=== PATIENT | female | born 1940 | race Two or more races ===

== ENCOUNTER 2018-02-17 15:55 | Inpatient (IN) | payer SELFPAY ==
[~2018-02-17] VITALS: Ht 152.4 cm; Wt 68.7 kg
[2018-02-17] VITALS (9 sets, daily range): BP systolic 54–144; BP diastolic 45–88
[2018-02-17 16:21] LABS: BASOPHILS % (AUTO) 1.5 % (0.0-2.0); EOSINOPHILS % (AUTO) 1.7 % (0.0-3.0); HEMOGLOBIN 13.8 G/DL (12.0-16.0); LYMPHOCYTES % (AUTO) 38.4 % (20.0-45.0); MEAN CORPUSCULAR VOLUME 88 FL (80-99); NEUTROPHILS % (AUTO) 53.4 % (45.0-75.0); PLATELET COUNT 229 K/UL (150-450); RED BLOOD COUNT 4.54 M/UL (4.20-5.40); WHITE BLOOD COUNT 8.8 K/UL (4.8-10.8)
[2018-02-17 16:24] LABS: APPEARANCE,URINE CLEAR; BILIRUBIN, URINE NEGATIVE (NEGATIVE); GLUCOSE, URINE (UA) NEGATIVE (NEGATIVE); KETONES,URINE NEGATIVE (NEGATIVE); LEUKOCYTE ESTERASE ,URINE 1+ (NEGATIVE); NITRITE,URINE NEGATIVE (NEGATIVE); PH,URINE 6 (4.5-8.0); PROTEIN,URINE NEGATIVE (NEGATIVE); UROBILINOGEN,URINE NORMAL MG/DL (0.0-1.0)
[2018-02-17 16:25] LABS: COLOR,URINE YELLOW
--- NOTE | 2018-02-17 16:25 | Emergency Room Report ---
History of Present Illness General Chief Complaint: Altered Level of Consciousness Source: Family Member Present Illness HPI Patient is a 78-year-old female who presented after increased altered mental status. Patient was brought in by private vehicle. Patient was noted to have become unconscious. The patient was noted to have agonal respirations.The patient reportedly had been ambulating in the street for 20 minutes and subsequently became less responsive. History is markedly limited by patient's mental status and acuity.. Allergies: Coded Allergies: NO KNOWN ALLERGIES (Verified Allergy, Unknown, 02/17/18) Uncoded Allergies: unknown (Allergy, Unknown, 02/17/18) Patient History Past Medical History: see triage record Reviewed Nursing Documentation: PMH: Agreed; PSxH: Agreed Nursing Documentation-PMH Past Medical History: No Stated History Review of Systems All Other Systems: negative except mentioned in HPI Physical Exam Vital Signs Date Time Temp Pulse Resp B/P (MAP) Pulse Ox O2 Delivery O2 Flow Rate FiO2 02/17/18 16:07 107.9 146 23 73/48 95 Room Air 108.0 General Appearance: obese, other - unresponsive Head: atraumatic Eyes: bilateral eye other - pinpoint pupils ENT: normal ENT inspection, hearing grossly normal, normal voice Neck: normal inspection, full range of motion, supple, no bony tend Respiratory: normal inspection, lungs clear, normal breath sounds, no respiratory distress, no retraction, no wheezing Cardiovascular #1: regular rate, rhythm, no edema Gastrointestinal: normal inspection, normal bowel sounds, non tender, soft, no guarding, no hernia Genitourinary: no CVA tenderness Musculoskeletal: normal inspection, back normal, normal range of motion Neurologic: motor weakness, other - unresponsive Psychiatric: normal inspection, judgement/insight normal, mood/affect normal Skin: normal inspection, normal color, no rash Procedures Critical Care Time Critical Care Time Patient had a critical medical condition which untreated could potentially result in life or limb threatening injury. Total critical care time excluding procedures approximately 45 minutes. Intubation Intubation : Consent: Emergent Time of Intubation: 16:19 Intubation Method: orotracheal Tube Size (cm): 7.0 Medications: Etomidate Breath Sounds after Intubation: equal Intubation Complications: no complications Post Intubation Xray: Yes Progress/Xray Impression: Right mainstem intubation Attempts: One Patient Tolerated: Well Progress tube withdrawn 2 cm Medical Decision Making Diagnostic Impression: Primary Impression: Altered level of consciousness Additional Impression: Heat stroke ER Course The patient presented for altered mental status. Differential diagnosis included was not limited to sepsis, malignant hyperthermia, heat stroke, neuroleptic malignant syndrome among others.Because of complexity of patient's case laboratory testing and imaging studies were ordered.Patient was noted to have initial temperature which was markedly elevated as well as initial hypotension. Patient noted have initial temperature 107.9. The patient started on cooling measures including cold IV fluids as well as cooling blanket and ice packs to the axilla and groin.The patient was intubated for airway protection. The patient will be admitted ICU for further management.The patient was noted to have some abrasions to her leg. Dr. Jones Aguayo was contacted for Dr. Miller inpatient management. Laboratory Tests Test 02/17/18 16:00 White Blood Count 8.8 K/UL (4.8-10.8) Red Blood Count 4.54 M/UL (4.20-5.40) Hemoglobin 13.8 G/DL (12.0-16.0) Hematocrit 40.0 % (37.0-47.0) Mean Corpuscular Volume 88 FL (80-99) Mean Corpuscular Hemoglobin 30.4 PG (27.0-31.0) Mean Corpuscular Hemoglobin Concent 34.5 G/DL (32.0-36.0) Red Cell Distribution Width 12.0 % (11.6-14.8) Platelet Count 229 K/UL (150-450) Mean Platelet Volume 7.4 FL (6.5-10.1) Neutrophils (%) (Auto) 53.4 % (45.0-75.0) Lymphocytes (%) (Auto) 38.4 % (20.0-45.0) Monocytes (%) (Auto) 5.0 % (1.0-10.0) Eosinophils (%) (Auto) 1.7 % (0.0-3.0) Basophils (%) (Auto) 1.5 % (0.0-2.0) Urine Color Yellow Urine Appearance Clear Urine pH 6 (4.5-8.0) Urine Specific [place] 1.015 (1.005-1.035) Urine Protein Negative (NEGATIVE) Urine Glucose (UA) Negative (NEGATIVE) Urine Ketones Negative (NEGATIVE) Urine Occult Blood Negative (NEGATIVE) Urine Nitrite Negative (NEGATIVE) Urine Bilirubin Negative (NEGATIVE) Urine Urobilinogen Normal MG/DL (0.0-1.0) Urine Leukocyte Esterase 1+ (NEGATIVE) H Urine RBC 0-2 /HPF (0 - 2) Urine WBC 0-2 /HPF (0 - 2) Urine Squamous Epithelial Cells Occasional /LPF Urine Bacteria Few /HPF (NONE) Sodium Level 140 MMOL/L (136-145) Potassium Level 4.6 MMOL/L (3.5-5.1) Chloride Level 103 MMOL/L (98-107) Carbon Dioxide Level 19 MMOL/L (21-32) L Anion Gap 18 mmol/L (5-15) H Blood Urea Nitrogen 19 mg/dL (7-18) H Creatinine 1.5 MG/DL (0.55-1.30) H Estimate Glomerular Filtration Rate 35.4 mL/min (>60) Glucose Level 265 MG/DL (74-106) H Lactic Acid Level 4.80 mmol/L (0.4-2.0) H Calcium Level 9.7 MG/DL (8.5-10.1) Phosphorus Level 1.9 MG/DL (2.5-4.9) L Magnesium Level 2.0 MG/DL (1.8-2.4) Total Bilirubin 0.5 MG/DL (0.2-1.0) Aspartate Amino Transferase (AST) 64 U/L (15-37) H Alanine Aminotransferase (ALT) 53 U/L (12-78) Alkaline Phosphatase 104 U/L (46-116) Total Creatine Kinase 121 U/L (26-308) Creatine Kinase MB < 0.5 NG/ML (0.0-3.6) Creatine Kinase MB Relative Index 0.4 Troponin I 0.068 ng/mL (0.000-0.056) Total Protein 8.3 G/DL (6.4-8.2) H Albumin 4.2 G/DL (3.4-5.0) Globulin 4.1 g/dL Albumin/Globulin Ratio 1.0 (1.0-2.7) Last Vital Signs Date Time Temp Pulse Resp B/P (MAP) Pulse Ox O2 Delivery O2 Flow Rate FiO2 02/17/18 16:07 107.9 146 23 73/48 95 Room Air 108.0 Status: unchanged Disposition: ADMITTED INPATIENT Condition: Critical Referrals: NOT CHOSEN IPA/MD,REFERRING (PCP) Julian Sepulveda MD Feb 17, 2018 16:25
[2018-02-17 16:30] LABS: ANION GAP 18 mmol/L (5-15); BLOOD UREA NITROGEN 19 mg/dL (7-18); CALCIUM 9.7 MG/DL (8.5-10.1); CARBON DIOXIDE 19 MMOL/L (21-32); CHLORIDE 103 MMOL/L (98-107); CREATININE 1.5 MG/DL (0.55-1.30); POTASSIUM 4.6 MMOL/L (3.5-5.1); SODIUM 140 MMOL/L (136-145)
[2018-02-17 16:54] LABS: ALANINE AMINOTRANSFERASE 53 U/L (12-78); ALBUMIN 4.2 G/DL (3.4-5.0); ALKALINE PHOSPHATASE 104 U/L (46-116); ASPARTATE AMINO TRANSFERASE 64 U/L (15-37); BILIRUBIN,TOTAL 0.5 MG/DL (0.2-1.0); CKMB < 0.5 NG/ML (0.0-3.6); CREATINE KINASE 121 U/L (26-308); PHOSPHORUS 1.9 MG/DL (2.5-4.9)
[2018-02-17] MEDS ORDERED: LORazepam Inj 2mg/ml 1ml IV PRN (17:00)
[2018-02-17] MEDS ORDERED: Acetaminophen 650 MG SUPP RECTAL PRN (17:15)
--- NOTE | 2018-02-17 17:30 | Diagnostic Imaging Report ---
EXAM: XR Chest, 1 View CLINICAL HISTORY: SOB TECHNIQUE: Frontal view of the chest. COMPARISON: No relevant prior studies available. FINDINGS/IMPRESSION: Endotracheal tube is in the right mainstem bronchus. Recommend pulling the tube back 3-4 cm. Suspect pulmonary vascular congestion. Critical Value Communications 02/17/18 17:33 Call Nurse Derick ARMSTRONG on 02/17 17:33 (-07:00)
--- NOTE | 2018-02-17 18:02 | Diagnostic Imaging Report ---
EXAM: CT Head Without Intravenous Contrast CLINICAL HISTORY: AMS TECHNIQUE: Axial computed tomography images of the head/brain without intravenous contrast. One or more of the following dose reduction techniques were used: automated exposure control, adjustment of the mA and/or kV according to patient size, use of iterative reconstruction technique. DLP 1582. CT DI 70.38 COMPARISON: No relevant prior studies available. FINDINGS: Brain: Technically limited exam. No intracranial hemorrhage or mass effect. Mild involutional and microvascular ischemic changes. Ventricles: Unremarkable. No ventriculomegaly. Bones/joints: Unremarkable. No acute fracture. Soft tissues: Unremarkable. Sinuses: Unremarkable as visualized. No acute sinusitis. Mastoid air cells: Unremarkable as visualized. No mastoid effusion. IMPRESSION: No acute findings.
[2018-02-17] MEDS ORDERED: SODIUM PHOSPHATE IVPB SCH (18:30)
[2018-02-17] MEDS ORDERED: NS IVPB SCH (18:30)
[2018-02-17] MEDS ORDERED: LORazepam Inj 2mg/ml 1ml IV SCH (18:45)
[2018-02-17] MEDS: D5NS 1,000 ML IV SCH (18:54)
--- NOTE | 2018-02-17 19:42 | Diagnostic Imaging Report ---
EXAM: XR Chest, 1 View CLINICAL HISTORY: TUBE PLCMT TECHNIQUE: Frontal view of the chest. COMPARISON: 02/17/18. FINDINGS: The endotracheal tube has been pulled back into a more appropriate position, the tip now projecting 4-5 cm above the dayron. Interval placement of enteric tube. The tip and side-port project in the proximal stomach. Elevated left hemidiaphragm due to gas distended bowel. IMPRESSION: Appropriately positioned endotracheal and enteric tubes.
--- NOTE | 2018-02-17 20:54 | Pulmonolgy Critical Care Note ---
Critical Care - Asmt/Plan Problems: (1) Lactic acid acidosis (2) NATTY (acute kidney injury) (3) Heat stroke (4) Hyperthermia (5) Acute respiratory failure (6) Altered level of consciousness Respiratory: monitor respiratory rate, adjust FIO2 - and PEEP to keep SaO2 > 90 , CXR, ABG Cardiac: continue to monitor HR/BP, other - F/u TTE, repeat ECG and TROP, cooling measures, F/U D-dimer and duplex Renal: F/U I&O, keep IV fluid, check electrolytes, other - trend lactic acid, check serum and urine OSM, F/U renal recs, check salicylates and acetom, utox Infectious Disease: add antibiotics - Vanco/Zosyn Gastrointestinal: hold feedings Endocrine: monitor blood sugar, check TSH, check HgA1C, continue sliding scale insulin Hematologic: monitor H/H Neurologic: keep patient comfortable - PRN Versed and Fentanyl Prophylaxis: Protonix, Heparin Disposition: keep in ICU Time Spent (Minutes): 60 Discussed with: nurses, consultants Critical Care - Objective Last 24 Hour Vital Signs Date Time Temp Pulse Resp B/P (MAP) Pulse Ox O2 Delivery O2 Flow Rate FiO2 02/17/18 20:14 102.2 115 35 97/54 100 Mechanical Ventilator 100 102.2 02/17/18 19:34 102.2 115 35 97/54 100 Mechanical Ventilator 100 102.2 02/17/18 18:25 102.5 151 35 137/78 100 Mechanical Ventilator 100 102.5 02/17/18 17:25 102.2 155 18 144/88 100 Mechanical Ventilator 100 102.2 02/17/18 16:48 100 02/17/18 16:41 135 18 100 02/17/18 16:25 103.3 154 24 107/52 100 Mechanical Ventilator 100 103.3 02/17/18 16:15 107.0 112 26 78/56 91 Room Air 107.0 02/17/18 16:07 107.9 146 23 73/48 95 Room Air 108.0 Status: obtunded Condition: critical HEENT: normocephalic Lungs: chest wall tender Heart: HR/BP stable Abdomen: soft, non-tender, active bowel sounds Extremities: no C/C/E Accucheck: 241 Critical Care - Subjective ROS Limited/Unobtainable: Yes ICU Day: 1 Intubation Day: 1 Interval Events: 77 F unknown PMH BIB vehicle after found in the stress with AMS, was walking in the street in the heat, temp in ED 107.9, no rigidity, improved to 101 with cooling blankets. Intubated in ER, CT head NAD. Condition: critical IV Access: peripheral EKG Rhythm: Sinus Rhythm FI02: 100 Vent Support Breath Rate: 14 Vent Support Mode: AC Vent Tidal Volume: 550 Sputum Amount: Small PIP: 22 Fluids: D5NS @ 150 Subjective: [place]O ET-Tube: 7.0 ET Position: 22 Labs: Laboratory Tests Test 02/17/18 16:00 02/17/18 19:00 02/17/18 19:40 White Blood Count 8.8 K/UL (4.8-10.8) Red Blood Count 4.54 M/UL (4.20-5.40) Hemoglobin 13.8 G/DL (12.0-16.0) Hematocrit 40.0 % (37.0-47.0) Mean Corpuscular Volume 88 FL (80-99) Mean Corpuscular Hemoglobin 30.4 PG (27.0-31.0) Mean Corpuscular Hemoglobin Concent 34.5 G/DL (32.0-36.0) Red Cell Distribution Width 12.0 % (11.6-14.8) Platelet Count 229 K/UL (150-450) Mean Platelet Volume 7.4 FL (6.5-10.1) Neutrophils (%) (Auto) 53.4 % (45.0-75.0) Lymphocytes (%) (Auto) 38.4 % (20.0-45.0) Monocytes (%) (Auto) 5.0 % (1.0-10.0) Eosinophils (%) (Auto) 1.7 % (0.0-3.0) Basophils (%) (Auto) 1.5 % (0.0-2.0) Urine Color Yellow Urine Appearance Clear Urine pH 6 (4.5-8.0) Urine Specific [place] 1.015 (1.005-1.035) Urine Protein Negative (NEGATIVE) Urine Glucose (UA) Negative (NEGATIVE) Urine Ketones Negative (NEGATIVE) Urine Occult Blood Negative (NEGATIVE) Urine Nitrite Negative (NEGATIVE) Urine Bilirubin Negative (NEGATIVE) Urine Urobilinogen Normal MG/DL (0.0-1.0) Urine Leukocyte Esterase 1+ (NEGATIVE) H Urine RBC 0-2 /HPF (0 - 2) Urine WBC 0-2 /HPF (0 - 2) Urine Squamous Epithelial Cells Occasional /LPF Urine Bacteria Few /HPF (NONE) Sodium Level 140 MMOL/L (136-145) Potassium Level 4.6 MMOL/L (3.5-5.1) Chloride Level 103 MMOL/L (98-107) Carbon Dioxide Level 19 MMOL/L (21-32) L Anion Gap 18 mmol/L (5-15) H Blood Urea Nitrogen 19 mg/dL (7-18) H Creatinine 1.5 MG/DL (0.55-1.30) H Estimat Glomerular Filtration Rate 35.4 mL/min (>60) Glucose Level 265 MG/DL (74-106) H Lactic Acid Level 4.80 mmol/L (0.4-2.0) H 4.00 mmol/L (0.66-2.22) H Calcium Level 9.7 MG/DL (8.5-10.1) Phosphorus Level 1.9 MG/DL (2.5-4.9) L Magnesium Level 2.0 MG/DL (1.8-2.4) Total Bilirubin 0.5 MG/DL (0.2-1.0) Aspartate Amino Transf (AST/SGOT) 64 U/L (15-37) H Alanine Aminotransferase (ALT/SGPT) 53 U/L (12-78) Alkaline Phosphatase 104 U/L (46-116) Total Creatine Kinase 121 U/L (26-308) Creatine Kinase MB < 0.5 NG/ML (0.0-3.6) Creatine Kinase MB Relative Index 0.4 Troponin I 0.068 ng/mL (0.000-0.056) Total Protein 8.3 G/DL (6.4-8.2) H Albumin 4.2 G/DL (3.4-5.0) Globulin 4.1 g/dL Albumin/Globulin Ratio 1.0 (1.0-2.7) Urine Opiates Screen Pending Urine Barbiturates Screen Pending Phencyclidine (PCP) Screen Pending Urine Amphetamines Screen Pending Urine Benzodiazepines Screen Pending Urine Cocaine Screen Pending Urine Marijuana (THC) Screen Pending Stalin García MD Feb 17, 2018 20:54
[2018-02-17] MEDS: NovoLOG Insulin Flexpen SUBQ SCH (21:00)
[2018-02-17] MEDS: DOPamine 400mg/250ml 250 ML IV SCH (21:00)
[2018-02-17] MEDS ORDERED: DOPamine 400mg/250ml 250 ML IV ONE (21:09)
[2018-02-17] MEDS ORDERED: Lidocaine 1% Plain 30 ml INJ ONE (21:47)
[2018-02-17] MEDS: Piperacillin/Tazobactam 3.375 GM in D5W 110 ML IVPB SCH (22:00)
[2018-02-17] MEDS ORDERED: Heparin 5000 units/ml inj SUBQ SCH (22:00)
[2018-02-17 22:23] LABS: ALANINE AMINOTRANSFERASE 109 U/L (12-78); ALBUMIN 3.7 G/DL (3.4-5.0); ALBUMIN/GLOBULIN RATIO 1.1 (1.0-2.7); ALKALINE PHOSPHATASE 98 U/L (46-116); ANION GAP 16 mmol/L (5-15); ASPARTATE AMINO TRANSFERASE 160 U/L (15-37); BILIRUBIN,TOTAL 0.4 MG/DL (0.2-1.0); BLOOD UREA NITROGEN 26 mg/dL (7-18); CALCIUM 8.2 MG/DL (8.5-10.1); CARBON DIOXIDE 19 MMOL/L (21-32); CHLORIDE 111 MMOL/L (98-107); CREATINE KINASE 291 U/L (26-308); CREATININE 1.3 MG/DL (0.55-1.30); POTASSIUM 2.8 MMOL/L (3.5-5.1); SODIUM 147 MMOL/L (136-145)
--- NOTE | 2018-02-17 23:01 | Diagnostic Imaging Report ---
EXAM: XR Chest, 1 View CLINICAL HISTORY: LINE TECHNIQUE: Frontal view of the chest. COMPARISON: 02/17/18 at 1915 hrs. FINDINGS/IMPRESSION: Interval placement of a central venous catheter in a right subclavian approach. Tip is in the mid-lower SVC. No pneumothorax. Endotracheal and enteric tubes are again noted.
--- NOTE | 2018-02-17 23:52 | Emergency Room Report ---
History of Present Illness General Chief Complaint: Altered Level of Consciousness Source: Family Member Present Illness Allergies: Coded Allergies: NO KNOWN ALLERGIES (Verified Allergy, Unknown, 02/17/18) Uncoded Allergies: unknown (Allergy, Unknown, 02/17/18) Nursing Documentation-[facility] Past Medical History Deferred: Patient Unconscious Past Medical History: No Stated History Hx Cardiac Problems: No Hx Cancer: No Hx Gastrointestinal Problems: No Hx Neurological Problems: No Physical Exam Vital Signs Date Time Temp Pulse Resp B/P (MAP) Pulse Ox O2 Delivery O2 Flow Rate FiO2 02/17/18 16:07 107.9 146 23 73/48 95 Room Air 108.0 02/17/18 16:25 100 Procedures Central Line Central Line : Consent: Emergent Central Line Lumen: triple Maximal Sterile Barrier Tech: yes cap, yes mask, yes sterile gown, yes sterile gloves, yes large sterile sheet, yes hand hygiene, yes chlorhexidine prep No Max Barrier Tech Because: other Central Line Postion: subclavian (R) Anesthesia: Lidocaine cc's of anesthesia: 4 Complications: none Central Line Post Position: sutured, good blood return, position confirmed w / CXR Attempts: Other - three attempted right IJ under ultrasound without success Patient Tolerated: Well Complications: None Medical Decision Making Diagnostic Impression: Primary Impression: Altered level of consciousness Additional Impression: Heat stroke Last Vital Signs Date Time Temp Pulse Resp B/P (MAP) Pulse Ox O2 Delivery O2 Flow Rate FiO2 02/17/18 21:15 85/52 02/17/18 20:14 102.2 115 35 100 Mechanical Ventilator 100 102.2 Disposition: ADMITTED INPATIENT Condition: Critical Referrals: NOT CHOSEN IPA/,REFERRING (PCP) Julian Sepulveda MD Feb 17, 2018 23:52
[2018-02-18] VITALS (24 sets, daily range): BP systolic 84–131; BP diastolic 48–88
--- NOTE | 2018-02-18 | Diagnostic Imaging Report ---
EXAM: US Abdomen Complete CLINICAL HISTORY: RENAL-A TECHNIQUE: Real-time ultrasound of the abdomen (complete) with image documentation. COMPARISON: No relevant prior studies available. FINDINGS: No renal stones or hydronephrosis. No suspicious masses. [place] in the bladder. IMPRESSION: See above
[2018-02-18 00:08] LABS: HEMATOCRIT 39.7 % (37.0-47.0); HEMOGLOBIN 13.4 G/DL (12.0-16.0); MEAN CORPUSCULAR VOLUME 87 FL (80-99); PLATELET COUNT 69 K/UL (150-450); RED BLOOD COUNT 4.55 M/UL (4.20-5.40); RED CELL DISTRIBUTION WIDTH 12.3 % (11.6-14.8); WHITE BLOOD COUNT 13.8 K/UL (4.8-10.8)
[2018-02-18] MEDS: Heparin 5000 units/ml inj IV SCH ×2 (00:15→02:00)
[2018-02-18] MEDS: D5NS 1,000 ML IV SCH (00:40)
[2018-02-18] MEDS ORDERED: Vancomycin 1250mg/D5W 250ml IVPB SCH (02:00)
[2018-02-18] MEDS: Heparin 25,000u/D5W 500ml 500 ML IV SCH ×2 (02:13→10:54)
[2018-02-18] MEDS: Acetaminophen 650mg/20.3ml NG PRN ×2 (02:21→21:16)
[2018-02-18 06:03] LABS: HEMOGLOBIN 13.4 G/DL (12.0-16.0); MEAN CORPUSCULAR VOLUME 89 FL (80-99); PLATELET COUNT 68 K/UL (150-450); RED BLOOD COUNT 4.49 M/UL (4.20-5.40); RED CELL DISTRIBUTION WIDTH 12.6 % (11.6-14.8); WHITE BLOOD COUNT 12.7 K/UL (4.8-10.8)
[2018-02-18 06:14] LABS: ANION GAP 13 mmol/L (5-15); BLOOD UREA NITROGEN 22 mg/dL (7-18); CARBON DIOXIDE 21 MMOL/L (21-32); CHLORIDE 109 MMOL/L (98-107); CREATININE 1.3 MG/DL (0.55-1.30); POTASSIUM 2.9 MMOL/L (3.5-5.1); SODIUM 143 MMOL/L (136-145)
[2018-02-18] MEDS: Piperacillin/Tazobactam 3.375 GM in D5W 110 ML IVPB SCH ×3 (06:19→21:54)
[2018-02-18] MEDS: NovoLOG Insulin Flexpen SUBQ SCH ×4 (06:39→21:00)
--- NOTE | 2018-02-18 08:06 | Nephrology Progress Note ---
Assessment/Plan Assessment/Plan HISTORY AND PHYSICAL WAS DICTATED 02/17/18 UNDER [facility] 1. Heat Stroke- initial body temp 107.5. - patient fluid resucitated - much improved. Temp as well decreased 2. Hypotension- volume depleted. IVF's - on norepi. Will decrease IVFs 3. Resp FL- patient awake. Weaning to begin then hopefully extubate later today 4. DVT prophylaxsis given 5. Hypokalemia- being replaced Subjective Date patient seen: Feb 18, 2018 Time patient seen: 08:02 ROS Limited/Unobtainable: Yes Allergies: Coded Allergies: NO KNOWN ALLERGIES (Verified Allergy, Unknown, 02/17/18) Uncoded Allergies: unknown (Allergy, Unknown, 02/17/18) All Systems: reviewed and negative except above Subjective Patient awake and intubated. Much improved Objective Last 24 Hour Vital Signs Date Time Temp Pulse Resp B/P (MAP) Pulse Ox O2 Delivery O2 Flow Rate FiO2 02/18/18 07:00 71 18 96/50 (65) 100 02/18/18 06:55 69 19 50 02/18/18 06:00 71 18 91/54 (66) 100 02/18/18 05:00 71 18 96/58 (71) 100 02/18/18 04:55 68 19 60 02/18/18 04:30 85/52 02/18/18 04:00 96 02/18/18 04:00 60 02/18/18 04:00 Mechanical Ventilator 02/18/18 04:00 98.4 70 18 84/54 (64) 100 98.4 02/18/18 03:00 82 20 106/57 (73) 99 02/18/18 02:51 99.9 02/18/18 02:44 77 21 70 02/18/18 02:21 100.7 02/18/18 02:00 78 17 105/66 (79) 100 02/18/18 01:00 85 18 107/49 (68) 100 02/18/18 00:47 72 18 80 02/18/18 00:00 Mechanical Ventilator 02/18/18 00:00 100.0 74 22 110/53 (72) 98 100.0 02/18/18 00:00 90 02/18/18 00:00 69 02/17/18 23:51 Mechanical Ventilator 02/17/18 23:17 90 02/17/18 23:00 75 21 127/76 (93) 98 02/17/18 22:49 68 15 100 02/17/18 22:00 83 19 90/57 (68) 99 02/17/18 21:15 85/52 02/17/18 21:00 81 18 70/46 (54) 99 02/17/18 21:00 64/38 02/17/18 20:39 83 16 100 02/17/18 20:14 102.2 115 35 97/54 100 Mechanical Ventilator 100 102.2 02/17/18 20:00 Mechanical Ventilator 02/17/18 20:00 100.8 81 18 54/45 (48) 99 100.8 02/17/18 20:00 90 02/17/18 20:00 85 02/17/18 19:34 102.2 115 35 97/54 100 Mechanical Ventilator 100 102.2 02/17/18 18:50 129 22 100 02/17/18 18:25 102.5 151 35 137/78 100 Mechanical Ventilator 100 102.5 02/17/18 17:25 102.2 155 18 144/88 100 Mechanical Ventilator 100 102.2 02/17/18 16:48 100 02/17/18 16:41 135 18 100 02/17/18 16:25 103.3 154 24 107/52 100 Mechanical Ventilator 100 103.3 02/17/18 16:15 107.0 112 26 78/56 91 Room Air 107.0 02/17/18 16:07 107.9 146 23 73/48 95 Room Air 108.0 Intake and Output 02/17/18 02/18/18 19:00 07:00 Intake Total 2173.380 ml Output Total 150 ml 1475 ml Balance -150 ml 698.380 ml Intake IV Total 2173.380 ml Output Urine Total 150 ml 1425 ml Emesis 50 ml # Bowel Movements 4 Laboratory Tests 02/17/18 16:00: White Blood Count 8.8, Red Blood Count 4.54, Hemoglobin 13.8, Hematocrit 40.0, Mean Corpuscular Volume 88, Mean Corpuscular Hemoglobin 30.4, Mean Corpuscular Hemoglobin Concent 34.5, Red Cell Distribution Width 12.0, Platelet Count 229, Mean Platelet Volume 7.4, Neutrophils (%) (Auto) 53.4, Lymphocytes (%) (Auto) 38.4, Monocytes (%) (Auto) 5.0, Eosinophils (%) (Auto) 1.7, Basophils (%) (Auto ) 1.5, Urine Color Yellow, Urine Appearance Clear, Urine pH 6, Urine Specific [place] 1.015, Urine Protein Negative, Urine Glucose (UA) Negative, Urine Ketones Negative, Urine Occult Blood Negative, Urine Nitrite Negative, Urine Bilirubin Negative, Urine Urobilinogen Normal, Urine Leukocyte Esterase 1+H, Urine RBC 0-2, Urine WBC 0-2, Urine Squamous Epithelial Cells Occasional, Urine Bacteria Few, Sodium Level 140, Potassium Level 4.6, Chloride Level 103, Carbon Dioxide Level 19L, Anion Gap 18H, Blood Urea Nitrogen 19H, Creatinine 1.5H, Estimat Glomerular Filtration Rate 35.4, Glucose Level 265H, Lactic Acid Level 4.80H, Calcium Level 9.7, Phosphorus Level 1.9L, Magnesium Level 2.0, Total Bilirubin 0.5, Aspartate Amino Transf (AST/SGOT) 64H, Alanine Aminotransferase ( ALT/SGPT) 53, Alkaline Phosphatase 104, Total Creatine Kinase 121, Creatine Kinase MB < 0.5, Creatine Kinase MB Relative Index 0.4, Troponin I 0.068H, Total Protein 8.3H, Albumin 4.2, Globulin 4.1, Albumin/Globulin Ratio 1.0 02/17/18 19:00: Urine Opiates Screen [Pending], Urine Barbiturates Screen [Pending], Phencyclidine (PCP) Screen [Pending], Urine Amphetamines Screen [Pending], Urine Benzodiazepines Screen [Pending], Urine Cocaine Screen [Pending], Urine Marijuana (THC) Screen [Pending] 02/17/18 19:40: Lactic Acid Level 4.00H 02/17/18 21:30: Sodium Level 147H, Potassium Level 2.8L, Chloride Level 111H, Carbon Dioxide Level 19L, Anion Gap 16H, Blood Urea Nitrogen 26H, Creatinine 1.3, Estimat Glomerular Filtration Rate , Glucose Level 149#H, Lactic Acid Level 4.00H, Calcium Level 8.2L, Total Bilirubin 0.4, Aspartate Amino Transf (AST/SGOT) 160H , Alanine Aminotransferase (ALT/SGPT) 109H, Alkaline Phosphatase 98, Total Creatine Kinase 291, Troponin I 0.939H, Total Protein 7.2, Albumin 3.7, Globulin 3.5, Albumin/Globulin Ratio 1.1, D-Dimer 12.15H, Hemoglobin A1c 6.3H, Osmolality 316, Thyroid Stimulating Hormone (TSH) 4.797H, Cortisol [Pending], Salicylates Level 0.5L, Acetaminophen Level < 0L 02/17/18 22:55: Arterial Blood pH 7.322L, Arterial Blood Partial Pressure CO2 34.9L, Arterial Blood Partial Pressure O2 582.5H, Arterial Blood HCO3 17.7L, Arterial Blood Oxygen Saturation 99.4H, Arterial Blood Base Excess -7.5, Kalin Test Positive 02/17/18 23:20: Lactic Acid Level 2.60H 02/17/18 23:45: White Blood Count 13.8#H, Red Blood Count 4.55, Hemoglobin 13.4, Hematocrit 39.7 , Mean Corpuscular Volume 87, Mean Corpuscular Hemoglobin 29.4, Mean Corpuscular Hemoglobin Concent 33.7, Red Cell Distribution Width 12.3, Platelet Count 69#L, Mean Platelet Volume 6.2L, Neutrophils (%) (Auto) , Lymphocytes (%) (Auto) , Monocytes (%) (Auto) , Eosinophils (%) (Auto) , Basophils (%) (Auto) , Differential Total Cells Counted 100, Neutrophils % (Manual) 82H, Lymphocytes % (Manual) 7L, Monocytes % (Manual) 11H, Eosinophils % (Manual) 0, Basophils % ( Manual) 0, Band Neutrophils 0, Nucleated Red Blood Cells 1, Platelet Estimate DecreasedL, Platelet Morphology Normal 02/18/18 00:20: Activated Partial Thromboplast Time 27, Cortisol AM Sample [Pending] 02/18/18 05:10: White Blood Count 12.7H, Red Blood Count 4.49, Hemoglobin 13.4, Hematocrit 40.0 , Mean Corpuscular Volume 89, Mean Corpuscular Hemoglobin 29.8, Mean Corpuscular Hemoglobin Concent 33.4, Red Cell Distribution Width 12.6, Platelet Count 68L, Mean Platelet Volume 8.3, Neutrophils (%) (Auto) , Lymphocytes (%) ( Auto) , Monocytes (%) (Auto) , Eosinophils (%) (Auto) , Basophils (%) (Auto) , Neutrophils % (Manual) [Pending], Lymphocytes % (Manual) [Pending], Platelet Estimate [Pending], Platelet Morphology [Pending], Sodium Level 143, Potassium Level 2.9L, Chloride Level 109H, Carbon Dioxide Level 21, Anion Gap 13, Blood Urea Nitrogen 22H, Creatinine 1.3, Estimat Glomerular Filtration Rate , Glucose Level 214H, Calcium Level 8.0L Height (Feet): 5 Weight (Pounds): 159 General Appearance: no apparent distress, alert EENT: PERRL/EOMI Neck: normal alignment, supple Cardiovascular: normal rate, regular rhythm Abdomen: non tender, soft Edema: no edema noted Arm (L), no edema noted Arm (R), no edema noted Leg (L), no edema noted Leg (R), no edema noted Pedal (L), no edema noted Pedal (R), no edema noted Generalized Jones Aguayo M.D. Feb 18, 2018 08:06
--- NOTE | 2018-02-18 08:53 | Pulmonolgy Critical Care Note ---
Critical Care - Asmt/Plan Problems: (1) Lactic acid acidosis (2) NATTY (acute kidney injury) (3) Heat stroke (4) Hyperthermia (5) Acute respiratory failure (6) Altered level of consciousness (7) NSTEMI (non-ST elevated myocardial infarction) (8) Thrombocytopenia Respiratory: monitor respiratory rate, adjust FIO2 - Titrate down FiO2 and PEEP to keep SaO2 > 90%, other - Optimize pulmonary hygiene/mobilzie as tolerated Cardiac: continue to monitor HR/BP, other - Continue IVUH for now, trend trops , F/U TTE, cards eval Renal: keep IV fluid, check electrolytes Infectious Disease: check cultures, continue antibiotics - Vanco/Zosyn D2 Gastrointestinal: start feedings Endocrine: monitor blood sugar Hematologic: monitor H/H, other - Continue IVUH, if duplex neg and trops downtrending will D/C IVUH, check HIT Abx panel and 5HT assay Neurologic: keep patient comfortable - PRN Versed Prophylaxis: Protonix, Heparin - IVUH Time Spent (Minutes): 40 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, 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, 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 Critical Care - Objective Last 24 Hour Vital Signs Date Time Temp Pulse Resp B/P (MAP) Pulse Ox O2 Delivery O2 Flow Rate FiO2 02/18/18 07:00 71 18 96/50 (65) 100 02/18/18 06:55 69 19 50 02/18/18 06:00 71 18 91/54 (66) 100 02/18/18 05:00 71 18 96/58 (71) 100 02/18/18 04:55 68 19 60 02/18/18 04:30 85/52 02/18/18 04:00 96 02/18/18 04:00 60 02/18/18 04:00 Mechanical Ventilator 02/18/18 04:00 98.4 70 18 84/54 (64) 100 98.4 02/18/18 03:00 82 20 106/57 (73) 99 02/18/18 02:51 99.9 02/18/18 02:44 77 21 70 02/18/18 02:21 100.7 02/18/18 02:00 78 17 105/66 (79) 100 02/18/18 01:00 85 18 107/49 (68) 100 02/18/18 00:47 72 18 80 02/18/18 00:00 Mechanical Ventilator 02/18/18 00:00 100.0 74 22 110/53 (72) 98 100.0 02/18/18 00:00 90 02/18/18 00:00 69 02/17/18 23:51 Mechanical Ventilator 02/17/18 23:17 90 02/17/18 23:00 75 21 127/76 (93) 98 02/17/18 22:49 68 15 100 02/17/18 22:00 83 19 90/57 (68) 99 02/17/18 21:15 85/52 02/17/18 21:00 81 18 70/46 (54) 99 02/17/18 21:00 64/38 02/17/18 20:39 83 16 100 02/17/18 20:14 102.2 115 35 97/54 100 Mechanical Ventilator 100 102.2 02/17/18 20:00 Mechanical Ventilator 02/17/18 20:00 100.8 81 18 54/45 (48) 99 100.8 02/17/18 20:00 90 02/17/18 20:00 85 02/17/18 19:34 102.2 115 35 97/54 100 Mechanical Ventilator 100 102.2 02/17/18 18:50 129 22 100 02/17/18 18:25 102.5 151 35 137/78 100 Mechanical Ventilator 100 102.5 02/17/18 17:25 102.2 155 18 144/88 100 Mechanical Ventilator 100 102.2 02/17/18 16:48 100 02/17/18 16:41 135 18 100 02/17/18 16:25 103.3 154 24 107/52 100 Mechanical Ventilator 100 103.3 02/17/18 16:15 107.0 112 26 78/56 91 Room Air 107.0 02/17/18 16:07 107.9 146 23 73/48 95 Room Air 108.0 Status: somnolent, other - intubated Condition: critical Lungs: clear, other - R SC CVC Heart: HR/BP unstable Abdomen: soft, non-tender, active bowel sounds Extremities: no C/C/E, other - knee abrasion Micro: Microbiology Date/Time Source Procedure Growth Status 02/17/18 19:18 Stool Clostridium difficile Toxin Assay - Final Complete Accucheck: 214 Critical Care - Subjective ROS Limited/Unobtainable: Yes ICU Day: 2 Intubation Day: 2 Interval Events: S/P R SC CVC + 673, 4mg NE Plt dropped before starting IVUH, doubt HIT Condition: improving IV Access: central - R SC CVC EKG Rhythm: Sinus Rhythm FI02: 50 Vent Support Breath Rate: 14 Vent Support Mode: AC Vent Tidal Volume: 550 Sputum Amount: Scant PEEP: 10.0 PIP: 26 Fluids: NS@150 Drips: NE 12 I&O: Intake and Output 02/17/18 02/18/18 19:00 07:00 Intake Total 2173.380 ml Output Total 150 ml 1475 ml Balance -150 ml 698.380 ml Intake IV Total 2173.380 ml Output Urine Total 150 ml 1425 ml Emesis 50 ml # Bowel Movements 4 Subjective: LEOBARDO ET-Tube: 7.0 ET Position: 20 Labs: Laboratory Tests Test 02/17/18 16:00 02/17/18 19:00 02/17/18 19:40 02/17/18 21:30 White Blood Count 8.8 K/UL (4.8-10.8) Red Blood Count 4.54 M/UL (4.20-5.40) Hemoglobin 13.8 G/DL (12.0-16.0) Hematocrit 40.0 % (37.0-47.0) Mean Corpuscular Volume 88 FL (80-99) Mean Corpuscular Hemoglobin 30.4 PG (27.0-31.0) Mean Corpuscular Hemoglobin Concent 34.5 G/DL (32.0-36.0) Red Cell Distribution Width 12.0 % (11.6-14.8) Platelet Count 229 K/UL (150-450) Mean Platelet Volume 7.4 FL (6.5-10.1) Neutrophils (%) (Auto) 53.4 % (45.0-75.0) Lymphocytes (%) (Auto) 38.4 % (20.0-45.0) Monocytes (%) (Auto) 5.0 % (1.0-10.0) Eosinophils (%) (Auto) 1.7 % (0.0-3.0) Basophils (%) (Auto) 1.5 % (0.0-2.0) Urine Color Yellow Urine Appearance Clear Urine pH 6 (4.5-8.0) Urine Specific [place] 1.015 (1.005-1.035) Urine Protein Negative (NEGATIVE) Urine Glucose (UA) Negative (NEGATIVE) Urine Ketones Negative (NEGATIVE) Urine Occult Blood Negative (NEGATIVE) Urine Nitrite Negative (NEGATIVE) Urine Bilirubin Negative (NEGATIVE) Urine Urobilinogen Normal MG/DL (0.0-1.0) Urine Leukocyte Esterase 1+ (NEGATIVE) H Urine RBC 0-2 /HPF (0 - 2) Urine WBC 0-2 /HPF (0 - 2) Urine Squamous Epithelial Cells Occasional /LPF Urine Bacteria Few /HPF (NONE) Sodium Level 140 MMOL/L (136-145) 147 MMOL/L (136-145) H Potassium Level 4.6 MMOL/L (3.5-5.1) 2.8 MMOL/L (3.5-5.1) L Chloride Level 103 MMOL/L (98-107) 111 MMOL/L (98-107) H Carbon Dioxide Level 19 MMOL/L (21-32) L 19 MMOL/L (21-32) L Anion Gap 18 mmol/L (5-15) H 16 mmol/L (5-15) H Blood Urea Nitrogen 19 mg/dL (7-18) H 26 mg/dL (7-18) H Creatinine 1.5 MG/DL (0.55-1.30) H 1.3 MG/DL (0.55-1.30) Estimat Glomerular Filtration Rate 35.4 mL/min (>60) mL/min (>60) Glucose Level 265 MG/DL (74-106) H 149 MG/DL (74-106) #H Lactic Acid Level 4.80 mmol/L (0.4-2.0) H 4.00 mmol/L (0.66-2.22) H 4.00 mmol/L (0.4-2.0) H Calcium Level 9.7 MG/DL (8.5-10.1) 8.2 MG/DL (8.5-10.1) L Phosphorus Level 1.9 MG/DL (2.5-4.9) L Magnesium Level 2.0 MG/DL (1.8-2.4) Total Bilirubin 0.5 MG/DL (0.2-1.0) 0.4 MG/DL (0.2-1.0) Aspartate Amino Transf (AST/SGOT) 64 U/L (15-37) H 160 U/L (15-37) H Alanine Aminotransferase (ALT/SGPT) 53 U/L (12-78) 109 U/L (12-78) H Alkaline Phosphatase 104 U/L (46-116) 98 U/L (46-116) Total Creatine Kinase 121 U/L (26-308) 291 U/L (26-308) Creatine Kinase MB < 0.5 NG/ML (0.0-3.6) Creatine Kinase MB Relative Index 0.4 Troponin I 0.068 ng/mL (0.000-0.056) 0.939 ng/mL (0.000-0.056) Total Protein 8.3 G/DL (6.4-8.2) H 7.2 G/DL (6.4-8.2) Albumin 4.2 G/DL (3.4-5.0) 3.7 G/DL (3.4-5.0) Globulin 4.1 g/dL 3.5 g/dL Albumin/Globulin Ratio 1.0 (1.0-2.7) 1.1 (1.0-2.7) Urine Opiates Screen Pending Urine Barbiturates Screen Pending Phencyclidine (PCP) Screen Pending Urine Amphetamines Screen Pending Urine Benzodiazepines Screen Pending Urine Cocaine Screen Pending Urine Marijuana (THC) Screen Pending D-Dimer 12.15 mg/L FEU (0.00-0.49) H Hemoglobin A1c 6.3 % (4.3-6.0) H Osmolality 316 mOsm/kg (297-317) Thyroid Stimulating Hormone (TSH) 4.797 uiU/mL (0.358-3.740) Cortisol Pending Salicylates Level 0.5 ug/mL (2.8-20) L Acetaminophen Level < 0 MCG/ML (10-30) L Test 02/17/18 22:55 02/17/18 23:20 02/17/18 23:45 02/18/18 00:20 Arterial Blood pH 7.322 (7.350-7.450) Arterial Blood Partial Pressure CO2 34.9 mmHg (35.0-45.0) L Arterial Blood Partial Pressure O2 582.5 mmHg (75.0-100.0) H Arterial Blood HCO3 17.7 mmol/L (22.0-26.0) L Arterial Blood Oxygen Saturation 99.4 % (92.0-98.0) H Arterial Blood Base Excess -7.5 Kalin Test Positive Lactic Acid Level 2.60 mmol/L (0.66-2.22) H White Blood Count 13.8 K/UL (4.8-10.8) #H Red Blood Count 4.55 M/UL (4.20-5.40) Hemoglobin 13.4 G/DL (12.0-16.0) Hematocrit 39.7 % (37.0-47.0) Mean Corpuscular Volume 87 FL (80-99) Mean Corpuscular Hemoglobin 29.4 PG (27.0-31.0) Mean Corpuscular Hemoglobin Concent 33.7 G/DL (32.0-36.0) Red Cell Distribution Width 12.3 % (11.6-14.8) Platelet Count 69 K/UL (150-450) #L Mean Platelet Volume 6.2 FL (6.5-10.1) L Neutrophils (%) (Auto) % (45.0-75.0) Lymphocytes (%) (Auto) % (20.0-45.0) Monocytes (%) (Auto) % (1.0-10.0) Eosinophils (%) (Auto) % (0.0-3.0) Basophils (%) (Auto) % (0.0-2.0) Differential Total Cells Counted 100 Neutrophils % (Manual) 82 % (45-75) H Lymphocytes % (Manual) 7 % (20-45) L Monocytes % (Manual) 11 % (1-10) H Eosinophils % (Manual) 0 % (0-3) Basophils % (Manual) 0 % (0-2) Band Neutrophils 0 % (0-8) Nucleated Red Blood Cells 1 /100 WBC Platelet Estimate Decreased L Platelet Morphology Normal Activated Partial Thromboplast Time 27 SEC (23-33) Cortisol AM Sample Pending Test 02/18/18 05:10 02/18/18 08:15 White Blood Count 12.7 K/UL (4.8-10.8) H Red Blood Count 4.49 M/UL (4.20-5.40) Hemoglobin 13.4 G/DL (12.0-16.0) Hematocrit 40.0 % (37.0-47.0) Mean Corpuscular Volume 89 FL (80-99) Mean Corpuscular Hemoglobin 29.8 PG (27.0-31.0) Mean Corpuscular Hemoglobin Concent 33.4 G/DL (32.0-36.0) Red Cell Distribution Width 12.6 % (11.6-14.8) Platelet Count 68 K/UL (150-450) L Mean Platelet Volume 8.3 FL (6.5-10.1) Neutrophils (%) (Auto) % (45.0-75.0) Lymphocytes (%) (Auto) % (20.0-45.0) Monocytes (%) (Auto) % (1.0-10.0) Eosinophils (%) (Auto) % (0.0-3.0) Basophils (%) (Auto) % (0.0-2.0) Neutrophils % (Manual) Pending Lymphocytes % (Manual) Pending Platelet Estimate Pending Platelet Morphology Pending Sodium Level 143 MMOL/L (136-145) Potassium Level 2.9 MMOL/L (3.5-5.1) L Chloride Level 109 MMOL/L (98-107) H Carbon Dioxide Level 21 MMOL/L (21-32) Anion Gap 13 mmol/L (5-15) Blood Urea Nitrogen 22 mg/dL (7-18) H Creatinine 1.3 MG/DL (0.55-1.30) Estimat Glomerular Filtration Rate mL/min (>60) Glucose Level 214 MG/DL (74-106) H Calcium Level 8.0 MG/DL (8.5-10.1) L Activated Partial Thromboplast Time Pending Troponin I Pending Stalin García MD Feb 18, 2018 08:53
[2018-02-18] MEDS ORDERED: Heparin 5000 units/ml inj IV SCH (09:30)
[2018-02-18] MEDS ORDERED: Heparin 25,000u/D5W 500ml 500 ML IV SCH (11:15)
--- NOTE | 2018-02-18 14:17 | Cardiac Electrophysiology PN ---
Subjective Subjective [id number] Objective Last 24 Hour Vital Signs Date Time Temp Pulse Resp B/P (MAP) Pulse Ox O2 Delivery O2 Flow Rate FiO2 02/18/18 12:00 40 02/18/18 12:00 87 02/18/18 12:00 Mechanical Ventilator 02/18/18 12:00 98.4 70 18 115/57 (76) 100 98.4 02/18/18 11:00 75 16 103/60 (74) 98 02/18/18 10:33 74 17 35 02/18/18 10:00 71 16 100/55 (70) 98 02/18/18 09:37 96/50 02/18/18 09:00 73 18 92/52 (65) 100 02/18/18 08:59 74 17 50 02/18/18 08:00 98.4 70 18 98/52 (67) 100 98.4 02/18/18 08:00 Mechanical Ventilator 02/18/18 08:00 90 02/18/18 08:00 50 02/18/18 07:00 71 18 96/50 (65) 100 02/18/18 06:55 69 19 50 02/18/18 06:00 71 18 91/54 (66) 100 02/18/18 05:00 71 18 96/58 (71) 100 02/18/18 04:55 68 19 60 02/18/18 04:30 85/52 02/18/18 04:00 96 02/18/18 04:00 60 02/18/18 04:00 Mechanical Ventilator 02/18/18 04:00 98.4 70 18 84/54 (64) 100 98.4 02/18/18 03:00 82 20 106/57 (73) 99 02/18/18 02:51 99.9 02/18/18 02:44 77 21 70 02/18/18 02:21 100.7 02/18/18 02:00 78 17 105/66 (79) 100 02/18/18 01:00 85 18 107/49 (68) 100 02/18/18 00:47 72 18 80 02/18/18 00:00 Mechanical Ventilator 02/18/18 00:00 100.0 74 22 110/53 (72) 98 100.0 02/18/18 00:00 90 02/18/18 00:00 69 02/17/18 23:51 Mechanical Ventilator 02/17/18 23:17 90 02/17/18 23:00 75 21 127/76 (93) 98 02/17/18 22:49 68 15 100 02/17/18 22:00 83 19 90/57 (68) 99 02/17/18 21:15 85/52 02/17/18 21:00 81 18 70/46 (54) 99 02/17/18 21:00 64/38 02/17/18 20:39 83 16 100 02/17/18 20:14 102.2 115 35 97/54 100 Mechanical Ventilator 100 102.2 02/17/18 20:00 Mechanical Ventilator 02/17/18 20:00 100.8 81 18 54/45 (48) 99 100.8 02/17/18 20:00 90 02/17/18 20:00 85 02/17/18 19:34 102.2 115 35 97/54 100 Mechanical Ventilator 100 102.2 02/17/18 18:50 129 22 100 02/17/18 18:25 102.5 151 35 137/78 100 Mechanical Ventilator 100 102.5 02/17/18 17:25 102.2 155 18 144/88 100 Mechanical Ventilator 100 102.2 02/17/18 16:48 100 02/17/18 16:41 135 18 100 02/17/18 16:25 103.3 154 24 107/52 100 Mechanical Ventilator 100 103.3 02/17/18 16:15 107.0 112 26 78/56 91 Room Air 107.0 02/17/18 16:07 107.9 146 23 73/48 95 Room Air 108.0 Intake and Output 02/17/18 02/18/18 19:00 07:00 Intake Total 2173.380 ml Output Total 150 ml 1475 ml Balance -150 ml 698.380 ml Intake IV Total 2173.380 ml Output Urine Total 150 ml 1425 ml Emesis 50 ml # Bowel Movements 4 Laboratory Tests Test 02/17/18 16:00 02/17/18 19:00 02/17/18 19:40 02/17/18 21:30 White Blood Count 8.8 K/UL (4.8-10.8) Red Blood Count 4.54 M/UL (4.20-5.40) Hemoglobin 13.8 G/DL (12.0-16.0) Hematocrit 40.0 % (37.0-47.0) Mean Corpuscular Volume 88 FL (80-99) Mean Corpuscular Hemoglobin 30.4 PG (27.0-31.0) Mean Corpuscular Hemoglobin Concent 34.5 G/DL (32.0-36.0) Red Cell Distribution Width 12.0 % (11.6-14.8) Platelet Count 229 K/UL (150-450) Mean Platelet Volume 7.4 FL (6.5-10.1) Neutrophils (%) (Auto) 53.4 % (45.0-75.0) Lymphocytes (%) (Auto) 38.4 % (20.0-45.0) Monocytes (%) (Auto) 5.0 % (1.0-10.0) Eosinophils (%) (Auto) 1.7 % (0.0-3.0) Basophils (%) (Auto) 1.5 % (0.0-2.0) Urine Color Yellow Urine Appearance Clear Urine pH 6 (4.5-8.0) Urine Specific [place] 1.015 (1.005-1.035) Urine Protein Negative (NEGATIVE) Urine Glucose (UA) Negative (NEGATIVE) Urine Ketones Negative (NEGATIVE) Urine Occult Blood Negative (NEGATIVE) Urine Nitrite Negative (NEGATIVE) Urine Bilirubin Negative (NEGATIVE) Urine Urobilinogen Normal MG/DL (0.0-1.0) Urine Leukocyte Esterase 1+ (NEGATIVE) H Urine RBC 0-2 /HPF (0 - 2) Urine WBC 0-2 /HPF (0 - 2) Urine Squamous Epithelial Cells Occasional /LPF Urine Bacteria Few /HPF (NONE) Sodium Level 140 MMOL/L (136-145) 147 MMOL/L (136-145) H Potassium Level 4.6 MMOL/L (3.5-5.1) 2.8 MMOL/L (3.5-5.1) L Chloride Level 103 MMOL/L (98-107) 111 MMOL/L (98-107) H Carbon Dioxide Level 19 MMOL/L (21-32) L 19 MMOL/L (21-32) L Anion Gap 18 mmol/L (5-15) H 16 mmol/L (5-15) H Blood Urea Nitrogen 19 mg/dL (7-18) H 26 mg/dL (7-18) H Creatinine 1.5 MG/DL (0.55-1.30) H 1.3 MG/DL (0.55-1.30) Estimat Glomerular Filtration Rate 35.4 mL/min (>60) mL/min (>60) Glucose Level 265 MG/DL (74-106) H 149 MG/DL (74-106) #H Lactic Acid Level 4.80 mmol/L (0.4-2.0) H 4.00 mmol/L (0.66-2.22) H 4.00 mmol/L (0.4-2.0) H Calcium Level 9.7 MG/DL (8.5-10.1) 8.2 MG/DL (8.5-10.1) L Phosphorus Level 1.9 MG/DL (2.5-4.9) L Magnesium Level 2.0 MG/DL (1.8-2.4) Total Bilirubin 0.5 MG/DL (0.2-1.0) 0.4 MG/DL (0.2-1.0) Aspartate Amino Transf (AST/SGOT) 64 U/L (15-37) H 160 U/L (15-37) H Alanine Aminotransferase (ALT/SGPT) 53 U/L (12-78) 109 U/L (12-78) H Alkaline Phosphatase 104 U/L (46-116) 98 U/L (46-116) Total Creatine Kinase 121 U/L (26-308) 291 U/L (26-308) Creatine Kinase MB < 0.5 NG/ML (0.0-3.6) Creatine Kinase MB Relative Index 0.4 Troponin I 0.068 ng/mL (0.000-0.056) 0.939 ng/mL (0.000-0.056) Total Protein 8.3 G/DL (6.4-8.2) H 7.2 G/DL (6.4-8.2) Albumin 4.2 G/DL (3.4-5.0) 3.7 G/DL (3.4-5.0) Globulin 4.1 g/dL 3.5 g/dL Albumin/Globulin Ratio 1.0 (1.0-2.7) 1.1 (1.0-2.7) Urine Opiates Screen Pending Urine Barbiturates Screen Pending Phencyclidine (PCP) Screen Pending Urine Amphetamines Screen Pending Urine Benzodiazepines Screen Pending Urine Cocaine Screen Pending Urine Marijuana (THC) Screen Pending D-Dimer 12.15 mg/L FEU (0.00-0.49) H Hemoglobin A1c 6.3 % (4.3-6.0) H Osmolality 316 mOsm/kg (297-317) Thyroid Stimulating Hormone (TSH) 4.797 uiU/mL (0.358-3.740) Cortisol Pending Salicylates Level 0.5 ug/mL (2.8-20) L Acetaminophen Level < 0 MCG/ML (10-30) L Test 02/17/18 22:55 02/17/18 23:20 02/17/18 23:45 02/18/18 00:20 Arterial Blood pH 7.322 (7.350-7.450) Arterial Blood Partial Pressure CO2 34.9 mmHg (35.0-45.0) L Arterial Blood Partial Pressure O2 582.5 mmHg (75.0-100.0) H Arterial Blood HCO3 17.7 mmol/L (22.0-26.0) L Arterial Blood Oxygen Saturation 99.4 % (92.0-98.0) H Arterial Blood Base Excess -7.5 Kalin Test Positive Lactic Acid Level 2.60 mmol/L (0.66-2.22) H White Blood Count 13.8 K/UL (4.8-10.8) #H Red Blood Count 4.55 M/UL (4.20-5.40) Hemoglobin 13.4 G/DL (12.0-16.0) Hematocrit 39.7 % (37.0-47.0) Mean Corpuscular Volume 87 FL (80-99) Mean Corpuscular Hemoglobin 29.4 PG (27.0-31.0) Mean Corpuscular Hemoglobin Concent 33.7 G/DL (32.0-36.0) Red Cell Distribution Width 12.3 % (11.6-14.8) Platelet Count 69 K/UL (150-450) #L Mean Platelet Volume 6.2 FL (6.5-10.1) L Neutrophils (%) (Auto) % (45.0-75.0) Lymphocytes (%) (Auto) % (20.0-45.0) Monocytes (%) (Auto) % (1.0-10.0) Eosinophils (%) (Auto) % (0.0-3.0) Basophils (%) (Auto) % (0.0-2.0) Differential Total Cells Counted 100 Neutrophils % (Manual) 82 % (45-75) H Lymphocytes % (Manual) 7 % (20-45) L Monocytes % (Manual) 11 % (1-10) H Eosinophils % (Manual) 0 % (0-3) Basophils % (Manual) 0 % (0-2) Band Neutrophils 0 % (0-8) Nucleated Red Blood Cells 1 /100 WBC Platelet Estimate Decreased L Platelet Morphology Normal Activated Partial Thromboplast Time 27 SEC (23-33) Cortisol AM Sample Pending Test 02/18/18 05:10 02/18/18 08:15 02/18/18 09:45 02/18/18 11:10 White Blood Count 12.7 K/UL (4.8-10.8) H Red Blood Count 4.49 M/UL (4.20-5.40) Hemoglobin 13.4 G/DL (12.0-16.0) Hematocrit 40.0 % (37.0-47.0) Mean Corpuscular Volume 89 FL (80-99) Mean Corpuscular Hemoglobin 29.8 PG (27.0-31.0) Mean Corpuscular Hemoglobin Concent 33.4 G/DL (32.0-36.0) Red Cell Distribution Width 12.6 % (11.6-14.8) Platelet Count 68 K/UL (150-450) L Mean Platelet Volume 8.3 FL (6.5-10.1) Neutrophils (%) (Auto) % (45.0-75.0) Lymphocytes (%) (Auto) % (20.0-45.0) Monocytes (%) (Auto) % (1.0-10.0) Eosinophils (%) (Auto) % (0.0-3.0) Basophils (%) (Auto) % (0.0-2.0) Differential Total Cells Counted 100 Neutrophils % (Manual) 86 % (45-75) H Lymphocytes % (Manual) 8 % (20-45) L Monocytes % (Manual) 6 % (1-10) Eosinophils % (Manual) 0 % (0-3) Basophils % (Manual) 0 % (0-2) Band Neutrophils 0 % (0-8) Nucleated Red Blood Cells 1 /100 WBC Platelet Estimate Decreased L Platelet Morphology Normal Red Blood Cell Morphology Normal Sodium Level 143 MMOL/L (136-145) Potassium Level 2.9 MMOL/L (3.5-5.1) L Chloride Level 109 MMOL/L (98-107) H Carbon Dioxide Level 21 MMOL/L (21-32) Anion Gap 13 mmol/L (5-15) Blood Urea Nitrogen 22 mg/dL (7-18) H Creatinine 1.3 MG/DL (0.55-1.30) Estimat Glomerular Filtration Rate mL/min (>60) Glucose Level 214 MG/DL (74-106) H Calcium Level 8.0 MG/DL (8.5-10.1) L Activated Partial Thromboplast Time 57 SEC (23-33) H Troponin I 0.701 ng/mL (0.000-0.056) Lactic Acid Level 3.90 mmol/L (0.4-2.0) H 2.50 mmol/L (0.66-2.22) H Heparin-PF4 Antibody Screen Pending Microbiology Date/Time Source Procedure Growth Status 02/17/18 19:18 Stool Clostridium difficile Toxin Assay - Final Complete Raghavendra Morel MD Feb 18, 2018 14:17
[2018-02-18] MEDS ORDERED: D5NS 1,000 ML IV SCH (18:00)
[2018-02-18] MEDS: Dyna-Hex 2% Top Sol 2oz TOPIC SCH (19:44)
[2018-02-18] MEDS ORDERED: Vancomycin 500mg/D5W 110ml IVPB SCH ×2 (21:00)
[2018-02-18] MEDS: DOPamine 400mg/250ml 250 ML IV SCH (21:00)
--- NOTE | 2018-02-18 21:15 | Consultation ---
DATE OF CONSULTATION: 02/18/2018 CARDIOLOGY CONSULTATION CONSULTING PHYSICIAN: Raghavendra Morel M.D. REFERRING PHYSICIAN: Jarrod Holden M.D. REASON FOR CONSULTATION: Hypotension and elevated troponin. HISTORY OF PRESENT ILLNESS: The patient is a 77-year-old lady, who was brought in by private vehicle for altered mental status. The patient was noted to have agonal respirations and reportedly had been ambulating in the street for 20 minutes and subsequently became less responsive. The patient's blood pressure in the ER was 72/48 and temperature was 108. The patient was admitted to intensive care unit and was started on pressors and intravenous fluids for heat stroke. The patient also had elevated troponin. At the time of my evaluation, the patient is still intubated in the intensive care unit, but was just stopped. REVIEW OF SYSTEMS: Cannot be obtained. PAST MEDICAL HISTORY: Not available at this time. MEDICATIONS: Per reconciliation. PHYSICAL EXAMINATION: VITAL SIGNS: Blood pressure increased to 102/60, pulse 75, respirations 16, and temperature 98.4. HEAD AND NECK: Showed no JVD. She is orally intubated with NG-tube. LUNGS: Clear. CARDIOVASCULAR: Shows regular S1 and S2 with no gallop or murmur. ABDOMEN: Soft. EXTREMITIES: No pitting edema. LABORATORY AND DIAGNOSTIC DATA: Her initial EKG showed sinus tachycardia with short [place] with inferolateral ST depression and left anterior fascicular block. Labs show white count of 12.7, hemoglobin of 13.4, hematocrit of 40, and platelet count is 68,000. Sodium 142, potassium 2.9, BUN of 22, and creatinine 1.3. Lactic acid 3.9. Troponin is 0.701 and 0.939. ASSESSMENT AND PLAN: 1. Elevated troponin initially was 0.9 and then went down to 0.7. Prior to that was 0.068. The patient's EKG showed inferolateral depression. Her echocardiogram however showed normal left ventricular systolic function with ejection fraction of 55%. We will continue to watch the patient on telemetry. Repeat troponin one more time tomorrow morning and repeat the EKG as well. 2. Hypotension, likely due to heat stroke. The patient is off Levophed right now. 3. Heat stroke. 4. Respiratory failure, on the ventilator as well as antibiotics. The patient also has lactic acidosis. 5. Altered level of consciousness. 6. Thrombocytopenia. Thank you very much, Dr. oHlden, for allowing me to participate in the care of this patient. Please do not hesitate to contact me for any questions regarding my evaluation. Raghavendra Morel M.D. DR: CARLEY JOB#: [id number] CC:
[2018-02-19] VITALS (24 sets, daily range): BP systolic 89–140; BP diastolic 53–84
[2018-02-19 04:51] LABS: HEMATOCRIT 32.3 % (37.0-47.0); HEMOGLOBIN 11.5 G/DL (12.0-16.0); MEAN CORPUSCULAR VOLUME 88 FL (80-99); PLATELET COUNT 36 K/UL (150-450); RED BLOOD COUNT 3.67 M/UL (4.20-5.40); RED CELL DISTRIBUTION WIDTH 12.3 % (11.6-14.8); WHITE BLOOD COUNT 15.3 K/UL (4.8-10.8)
[2018-02-19 05:24] LABS: ANION GAP 11 mmol/L (5-15); BLOOD UREA NITROGEN 12 mg/dL (7-18); CALCIUM 7.4 MG/DL (8.5-10.1); CARBON DIOXIDE 19 MMOL/L (21-32); CHLORIDE 109 MMOL/L (98-107); CREATININE 0.9 MG/DL (0.55-1.30); PHOSPHORUS 3.1 MG/DL (2.5-4.9); SODIUM 139 MMOL/L (136-145)
[2018-02-19] MEDS: Piperacillin/Tazobactam 3.375 GM in D5W 110 ML IVPB SCH ×3 (06:00→21:40)
[2018-02-19] MEDS: NovoLOG Insulin Flexpen SUBQ SCH ×4 (06:01→20:44)
--- NOTE | 2018-02-19 08:25 | Nephrology Progress Note ---
Assessment/Plan Assessment/Plan HISTORY AND PHYSICAL WAS DICTATED 02/17/18 UNDER [facility] 1. Heat Stroke- initial body temp 107.5. - patient fluid resucitated and much improved 2. Hypotension- volume depleted. IVF's - on norepi + IVF's 3. Resp FL- possible extubation today 4. DVT prophylaxsis given 5. Hypokalemia/Mg- being replaced today 6. NATTY- resolved 7. Thrombocytopenia- poss due to zosyn - HIT Ab ordered - consulted Heme for evaluation 8. Leukocytosis- broad spectrum Abx and ID to manage Abx Subjective Date patient seen: Feb 19, 2018 Time patient seen: 08:19 ROS Limited/Unobtainable: Yes Allergies: Coded Allergies: NO KNOWN ALLERGIES (Verified Allergy, Unknown, 02/17/18) Uncoded Allergies: unknown (Allergy, Unknown, 02/17/18) All Systems: reviewed and negative except above Subjective Patient awake and intubated and coherent Objective Last 24 Hour Vital Signs Date Time Temp Pulse Resp B/P (MAP) Pulse Ox O2 Delivery O2 Flow Rate FiO2 02/19/18 07:00 86 20 115/62 (79) 100 02/19/18 06:30 84 20 30 02/19/18 06:00 86 20 116/68 (84) 100 02/19/18 05:16 89 21 30 02/19/18 05:00 83 19 136/62 (86) 100 02/19/18 04:00 30 02/19/18 04:00 Mechanical Ventilator 02/19/18 04:00 89 02/19/18 04:00 99.7 83 19 113/63 (80) 100 99.7 02/19/18 03:23 91 21 30 02/19/18 03:00 91 19 121/66 (84) 100 02/19/18 02:00 100.1 94 21 102/63 (76) 100 100.1 02/19/18 01:00 97 20 118/70 (86) 100 02/19/18 00:45 90 21 30 02/19/18 00:00 88 02/19/18 00:00 Mechanical Ventilator 02/19/18 00:00 100.3 80 20 89/63 (72) 100 100.3 02/19/18 00:00 30 02/18/18 23:00 86 20 90/48 (62) 100 02/18/18 22:41 30 02/18/18 22:36 90 20 30 02/18/18 22:00 100.7 92 16 94/58 (70) 100 100.7 02/18/18 21:46 100.7 02/18/18 21:16 100.7 02/18/18 21:09 114 20 30 02/18/18 21:00 97 15 102/56 (71) 100 02/18/18 21:00 119/68 02/18/18 20:00 100.0 119 20 131/85 (100) 98 100.0 02/18/18 20:00 Mechanical Ventilator 02/18/18 20:00 30 02/18/18 19:52 118 02/18/18 19:05 120 20 30 02/18/18 19:00 112 16 125/79 (94) 98 02/18/18 18:00 76 16 122/88 (99) 98 02/18/18 17:17 67 22 30 02/18/18 17:00 75 16 116/60 (78) 98 02/18/18 16:00 85 02/18/18 16:00 98.4 80 18 110/57 (74) 100 98.4 02/18/18 16:00 30 02/18/18 16:00 Mechanical Ventilator 02/18/18 15:25 84 23 30 02/18/18 15:00 77 16 116/70 (85) 98 02/18/18 14:00 75 16 112/63 (79) 98 02/18/18 13:10 67 22 30 02/18/18 13:00 72 16 109/60 (76) 98 02/18/18 12:00 40 02/18/18 12:00 87 02/18/18 12:00 Mechanical Ventilator 02/18/18 12:00 98.4 70 18 115/57 (76) 100 98.4 02/18/18 11:00 75 16 103/60 (74) 98 02/18/18 10:33 74 17 35 02/18/18 10:00 71 16 100/55 (70) 98 02/18/18 09:37 96/50 02/18/18 09:00 73 18 92/52 (65) 100 02/18/18 08:59 74 17 50 Intake and Output 02/18/18 02/19/18 19:00 07:00 Intake Total 1260.0 ml 2097.5 ml Output Total 1160 ml 1250 ml Balance 100.0 ml 847.5 ml Intake IV Total 1260.0 ml 2047.5 ml Other 50 ml Output Urine Total 1160 ml 1200 ml Stool Total 50 ml Laboratory Tests 02/18/18 09:45: Lactic Acid Level 3.90H, Heparin-PF4 Antibody Screen [Pending] 02/18/18 11:10: Lactic Acid Level 2.50H 02/18/18 16:25: Arterial Blood pH 7.280L, Arterial Blood Partial Pressure CO2 36.6, Arterial Blood Partial Pressure O2 97.2, Arterial Blood HCO3 16.9L, Arterial Blood Oxygen Saturation 97.2, Arterial Blood Base Excess -9.0, Kalin Test Positive 02/18/18 19:00: Urine Osmolality 472H, Miscellaneous Test 2 [Pending], Urine Opiates Screen Negative, Urine Barbiturates Screen Negative, Phencyclidine (PCP) Screen Negative, Urine Amphetamines Screen Negative, Urine Benzodiazepines Screen Negative, Urine Cocaine Screen Negative, Urine Marijuana (THC) Screen Negative 02/18/18 21:20: Arterial Blood pH 7.310L, Arterial Blood Partial Pressure CO2 35.4, Arterial Blood Partial Pressure O2 107.2H, Arterial Blood HCO3 17.5L, Arterial Blood Oxygen Saturation 97.9, Arterial Blood Base Excess -7.9, Kalin Test Positive 02/19/18 04:19: White Blood Count 15.3H, Red Blood Count 3.67L, Hemoglobin 11.5L, Hematocrit 32.3L, Mean Corpuscular Volume 88, Mean Corpuscular Hemoglobin 31.2H, Mean Corpuscular Hemoglobin Concent 35.5, Red Cell Distribution Width 12.3, Platelet Count 36L, Mean Platelet Volume 8.6, Neutrophils (%) (Auto) , Lymphocytes (%) ( Auto) , Monocytes (%) (Auto) , Eosinophils (%) (Auto) , Basophils (%) (Auto) , Neutrophils % (Manual) [Pending], Lymphocytes % (Manual) [Pending], Platelet Estimate [Pending], Platelet Morphology [Pending], Sodium Level 139, Potassium Level 3.0L, Chloride Level 109H, Carbon Dioxide Level 19L, Anion Gap 11, Blood Urea Nitrogen 12, Creatinine 0.9, Estimat Glomerular Filtration Rate , Glucose Level 117H, Calcium Level 7.4L, Phosphorus Level 3.1, Magnesium Level 1.6L, Troponin I 0.376H 02/19/18 06:50: Arterial Blood pH 7.380, Arterial Blood Partial Pressure CO2 27.1L, Arterial Blood Partial Pressure O2 110.2H, Arterial Blood HCO3 15.9L, Arterial Blood Oxygen Saturation 98.0, Arterial Blood Base Excess -7.8, Kalin Test Positive Height (Feet): 5 Weight (Pounds): 161 General Appearance: no apparent distress EENT: PERRL/EOMI Neck: normal alignment, supple Cardiovascular: normal rate, regular rhythm Respiratory/Chest: lungs clear, normal breath sounds Abdomen: non tender, soft Edema: no edema noted Arm (L), no edema noted Arm (R), no edema noted Leg (L), no edema noted Leg (R), no edema noted Pedal (L), no edema noted Pedal (R), no edema noted Generalized Jones Aguayo M.D. Feb 19, 2018 08:25
--- NOTE | 2018-02-19 08:53 | Pulmonolgy Critical Care Note ---
Critical Care - Asmt/Plan Problems: (1) Lactic acid acidosis Assessment & Plan: IMPROVED (2) NATTY (acute kidney injury) Assessment & Plan: RESOLVED (3) Heat stroke Assessment & Plan: IMPROVED (4) Hyperthermia Assessment & Plan: IMPROVED (5) Acute respiratory failure Assessment & Plan: GAS EXCHANGE IMPROVED (6) Altered level of consciousness Assessment & Plan: BETTER (7) NSTEMI (non-ST elevated myocardial infarction) Assessment & Plan: TROPS DOWNTRENDING, No WMA, Good LVEF, likely demand ischemia (8) Thrombocytopenia Assessment & Plan: ? HIT vs other medication induced Respiratory: monitor respiratory rate, adjust FIO2 - Titrate down to keep SaO2 > 90%, weaning trial - SBT PS 8, if passed & meets other criterial will extubate this am, other - Optimize pulmonary hygiene/mobilize as tolerated. Given elevated D-dimer F/U duplex, TTE not suggestive of PE, was unable to tolerate A/C, VQ ordered as well. If duplex + will need a filter Cardiac: stop pressors - off NE, continue to monitor HR/BP, other - F/U cards recs Renal: decrease IV fluid - to 75 cc/hr, check electrolytes, other - F/U renal resc Infectious Disease: check cultures, continue antibiotics - Vanco/Zosyn D3 Gastrointestinal: other - Bedside swallow eval post extubation & advance diet, if unable to be extubated today will start TF's Endocrine: other - TSH evelated, F/U TFT's Hematologic: other - IVUH D/C'd, monitor platelets, transfuse PRN, F/U HIT Ab panel, F/U 5HT releast assay, Hematology eval Prophylaxis: Protonix, SCDs - if duplex negative Disposition: keep in ICU Time Spent (Minutes): 30 Notes Reviewed: denitrator, cardio, 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, consultants Critical Care - Objective Last 24 Hour Vital Signs Date Time Temp Pulse Resp B/P (MAP) Pulse Ox O2 Delivery O2 Flow Rate FiO2 02/19/18 07:00 86 20 115/62 (79) 100 02/19/18 06:30 84 20 30 02/19/18 06:00 86 20 116/68 (84) 100 02/19/18 05:16 89 21 30 02/19/18 05:00 83 19 136/62 (86) 100 02/19/18 04:00 30 02/19/18 04:00 Mechanical Ventilator 02/19/18 04:00 89 02/19/18 04:00 99.7 83 19 113/63 (80) 100 99.7 02/19/18 03:23 91 21 30 02/19/18 03:00 91 19 121/66 (84) 100 02/19/18 02:00 100.1 94 21 102/63 (76) 100 100.1 02/19/18 01:00 97 20 118/70 (86) 100 02/19/18 00:45 90 21 30 02/19/18 00:00 88 02/19/18 00:00 Mechanical Ventilator 02/19/18 00:00 100.3 80 20 89/63 (72) 100 100.3 02/19/18 00:00 30 02/18/18 23:00 86 20 90/48 (62) 100 02/18/18 22:41 30 02/18/18 22:36 90 20 30 02/18/18 22:00 100.7 92 16 94/58 (70) 100 100.7 02/18/18 21:46 100.7 02/18/18 21:16 100.7 02/18/18 21:09 114 20 30 02/18/18 21:00 97 15 102/56 (71) 100 02/18/18 21:00 119/68 02/18/18 20:00 100.0 119 20 131/85 (100) 98 100.0 02/18/18 20:00 Mechanical Ventilator 02/18/18 20:00 30 02/18/18 19:52 118 02/18/18 19:05 120 20 30 02/18/18 19:00 112 16 125/79 (94) 98 02/18/18 18:00 76 16 122/88 (99) 98 02/18/18 17:17 67 22 30 02/18/18 17:00 75 16 116/60 (78) 98 02/18/18 16:00 85 02/18/18 16:00 98.4 80 18 110/57 (74) 100 98.4 02/18/18 16:00 30 02/18/18 16:00 Mechanical Ventilator 02/18/18 15:25 84 23 30 02/18/18 15:00 77 16 116/70 (85) 98 02/18/18 14:00 75 16 112/63 (79) 98 02/18/18 13:10 67 22 30 02/18/18 13:00 72 16 109/60 (76) 98 02/18/18 12:00 40 02/18/18 12:00 87 02/18/18 12:00 Mechanical Ventilator 02/18/18 12:00 98.4 70 18 115/57 (76) 100 98.4 02/18/18 11:00 75 16 103/60 (74) 98 02/18/18 10:33 74 17 35 02/18/18 10:00 71 16 100/55 (70) 98 02/18/18 09:37 96/50 02/18/18 09:00 73 18 92/52 (65) 100 02/18/18 08:59 74 17 50 Status: awake, other - obese, intubated Condition: improving HEENT: atraumatic, normocephalic, other - ETT Lungs: clear Heart: HR/BP stable Abdomen: soft, non-tender, active bowel sounds Extremities: no C/C/E, other - knee abrasions Micro: Microbiology Date/Time Source Procedure Growth Status 02/17/18 19:35 Blood Blood Culture - Preliminary NO GROWTH AFTER 24 HOURS Resulted 02/17/18 19:15 Blood Blood Culture - Preliminary NO GROWTH AFTER 24 HOURS Resulted 02/17/18 19:18 Stool Clostridium difficile Toxin Assay - Final Complete Accucheck: 108 Critical Care - Subjective ROS Limited/Unobtainable: Yes ICU Day: 3 Intubation Day: 3 Interval Events: Gas exchange improved, Tm 100, VSS, trops downtrending, WCt inc, awake/alert, no distress, off NE Condition: improving IV Access: peripheral EKG Rhythm: Sinus Rhythm FI02: 30 Vent Support Breath Rate: 20 Vent Support Mode: AC Vent Tidal Volume: 550 Sputum Amount: Small PEEP: 5.0 PIP: 31 Fluids: NS@150 Drips: off NE I&O: Intake and Output 02/18/18 02/19/18 19:00 07:00 Intake Total 1260.0 ml 2097.5 ml Output Total 1160 ml 1250 ml Balance 100.0 ml 847.5 ml Intake IV Total 1260.0 ml 2047.5 ml Other 50 ml Output Urine Total 1160 ml 1200 ml Stool Total 50 ml Subjective: LEOBARDO ET-Tube: 7.0 ET Position: 20 Labs: Laboratory Tests Test 02/18/18 09:45 02/18/18 11:10 02/18/18 16:25 02/18/18 19:00 Lactic Acid Level 3.90 mmol/L (0.4-2.0) H 2.50 mmol/L (0.66-2.22) H Heparin-PF4 Antibody Screen Pending Arterial Blood pH 7.280 (7.350-7.450) Arterial Blood Partial Pressure CO2 36.6 mmHg (35.0-45.0) Arterial Blood Partial Pressure O2 97.2 mmHg (75.0-100.0) Arterial Blood HCO3 16.9 mmol/L (22.0-26.0) L Arterial Blood Oxygen Saturation 97.2 % (92.0-98.0) Arterial Blood Base Excess -9.0 Kalin Test Positive Urine Osmolality 472 mOsm/kg (429-449) H Miscellaneous Test 2 Pending Urine Opiates Screen Negative (NEGATIVE) Urine Barbiturates Screen Negative (NEGATIVE) Phencyclidine (PCP) Screen Negative (NEGATIVE) Urine Amphetamines Screen Negative (NEGATIVE) Urine Benzodiazepines Screen Negative (NEGATIVE) Urine Cocaine Screen Negative (NEGATIVE) Urine Marijuana (THC) Screen Negative (NEGATIVE) Test 02/18/18 21:20 02/19/18 04:19 02/19/18 06:50 Arterial Blood pH 7.310 (7.350-7.450) 7.380 (7.350-7.450) Arterial Blood Partial Pressure CO2 35.4 mmHg (35.0-45.0) 27.1 mmHg (35.0-45.0) L Arterial Blood Partial Pressure O2 107.2 mmHg (75.0-100.0) H 110.2 mmHg (75.0-100.0) H Arterial Blood HCO3 17.5 mmol/L (22.0-26.0) L 15.9 mmol/L (22.0-26.0) L Arterial Blood Oxygen Saturation 97.9 % (92.0-98.0) 98.0 % (92.0-98.0) Arterial Blood Base Excess -7.9 -7.8 Kalin Test Positive Positive White Blood Count 15.3 K/UL (4.8-10.8) H Red Blood Count 3.67 M/UL (4.20-5.40) L Hemoglobin 11.5 G/DL (12.0-16.0) L Hematocrit 32.3 % (37.0-47.0) L Mean Corpuscular Volume 88 FL (80-99) Mean Corpuscular Hemoglobin 31.2 PG (27.0-31.0) H Mean Corpuscular Hemoglobin Concent 35.5 G/DL (32.0-36.0) Red Cell Distribution Width 12.3 % (11.6-14.8) Platelet Count 36 K/UL (150-450) L Mean Platelet Volume 8.6 FL (6.5-10.1) Neutrophils (%) (Auto) % (45.0-75.0) Lymphocytes (%) (Auto) % (20.0-45.0) Monocytes (%) (Auto) % (1.0-10.0) Eosinophils (%) (Auto) % (0.0-3.0) Basophils (%) (Auto) % (0.0-2.0) Neutrophils % (Manual) Pending Lymphocytes % (Manual) Pending Platelet Estimate Pending Platelet Morphology Pending Sodium Level 139 MMOL/L (136-145) Potassium Level 3.0 MMOL/L (3.5-5.1) L Chloride Level 109 MMOL/L (98-107) H Carbon Dioxide Level 19 MMOL/L (21-32) L Anion Gap 11 mmol/L (5-15) Blood Urea Nitrogen 12 mg/dL (7-18) Creatinine 0.9 MG/DL (0.55-1.30) Estimat Glomerular Filtration Rate mL/min (>60) Glucose Level 117 MG/DL (74-106) H Calcium Level 7.4 MG/DL (8.5-10.1) L Phosphorus Level 3.1 MG/DL (2.5-4.9) Magnesium Level 1.6 MG/DL (1.8-2.4) L Troponin I 0.376 ng/mL (0.000-0.056) Stalin García MD Feb 19, 2018 08:53
--- NOTE | 2018-02-19 09:13 | Consultation ---
Consult Note Assessment/Plan Job ID [id number] Link Diez MD Feb 19, 2018 09:13
--- NOTE | 2018-02-19 11:24 | Infectious Diseases Prog Note ---
Assessment/Plan Problems: (1) Sepsis Assessment & Plan: due to gram positive cocci in clusters from three bottles , with fever and leukocytosis , source suspect her knees wounds . will repeat blood culture to confirm , UA and CXR to rule out new infiltrates , continue vancomycin ad zosyn empirically (2) Fever Assessment & Plan: heat stroke VS sepsis related, cotinue wide spectrum antibiotics, and tylenol (3) Acute respiratory failure Assessment & Plan: S/P extubation, improved, repeat CXR (4) NATTY (acute kidney injury) Assessment & Plan: due to dehydration, improved , monitor renal function (5) Heat stroke Assessment & Plan: continue cooling measures and hydration (6) Thrombocytopenia Assessment & Plan: will order HIT , since she was on heparin , hematology team is following Subjective Constitutional: Reports: fever, chills HEENT: Reports: no symptoms Respiratory: Reports: dry cough Breasts: Reports: no symptoms Cardiovascular: Reports: no symptoms Gastrointestinal/Abdominal: Reports: no symptoms Genitourinary: Reports: no symptoms Neurologic: Reports: no symptoms Psychiatric: Reports: no symptoms Skin: Reports: no symptoms Endocrine: Reports: no symptoms Hematologic: Reports: no symptoms Musculoskeletal: Reports: no symptoms Allergies: Coded Allergies: NO KNOWN ALLERGIES (Verified Allergy, Unknown, 02/17/18) Uncoded Allergies: unknown (Allergy, Unknown, 02/17/18) Objective Vital Signs Last 24 Hour Vital Signs Date Time Temp Pulse Resp B/P (MAP) Pulse Ox O2 Delivery O2 Flow Rate FiO2 02/19/18 10:00 81 18 119/53 (75) 100 02/19/18 09:18 100 02/19/18 09:14 88 19 30 02/19/18 09:00 80 18 121/83 (96) 100 02/19/18 08:00 76 02/19/18 08:00 Mechanical Ventilator 02/19/18 08:00 30 02/19/18 08:00 99.6 80 18 121/83 (96) 100 99.6 02/19/18 07:00 86 20 115/62 (79) 100 02/19/18 06:30 84 20 30 02/19/18 06:00 86 20 116/68 (84) 100 02/19/18 05:16 89 21 30 02/19/18 05:00 83 19 136/62 (86) 100 02/19/18 04:00 30 02/19/18 04:00 Mechanical Ventilator 02/19/18 04:00 89 02/19/18 04:00 99.7 83 19 113/63 (80) 100 99.7 02/19/18 03:23 91 21 30 02/19/18 03:00 91 19 121/66 (84) 100 02/19/18 02:00 100.1 94 21 102/63 (76) 100 100.1 02/19/18 01:00 97 20 118/70 (86) 100 02/19/18 00:45 90 21 30 02/19/18 00:00 88 02/19/18 00:00 Mechanical Ventilator 02/19/18 00:00 100.3 80 20 89/63 (72) 100 100.3 02/19/18 00:00 30 02/18/18 23:00 86 20 90/48 (62) 100 02/18/18 22:41 30 02/18/18 22:36 90 20 30 02/18/18 22:00 100.7 92 16 94/58 (70) 100 100.7 02/18/18 21:46 100.7 02/18/18 21:16 100.7 02/18/18 21:09 114 20 30 02/18/18 21:00 97 15 102/56 (71) 100 02/18/18 21:00 119/68 02/18/18 20:00 100.0 119 20 131/85 (100) 98 100.0 02/18/18 20:00 Mechanical Ventilator 02/18/18 20:00 30 02/18/18 19:52 118 02/18/18 19:05 120 20 30 02/18/18 19:00 112 16 125/79 (94) 98 02/18/18 18:00 76 16 122/88 (99) 98 02/18/18 17:17 67 22 30 02/18/18 17:00 75 16 116/60 (78) 98 02/18/18 16:00 85 02/18/18 16:00 98.4 80 18 110/57 (74) 100 98.4 02/18/18 16:00 30 02/18/18 16:00 Mechanical Ventilator 02/18/18 15:25 84 23 30 02/18/18 15:00 77 16 116/70 (85) 98 02/18/18 14:00 75 16 112/63 (79) 98 02/18/18 13:10 67 22 30 02/18/18 13:00 72 16 109/60 (76) 98 02/18/18 12:00 40 02/18/18 12:00 87 02/18/18 12:00 Mechanical Ventilator 02/18/18 12:00 98.4 70 18 115/57 (76) 100 98.4 Height (Feet): 5 Weight (Pounds): 161 General Appearance: WD/WN, no acute distress HEENT: normocephalic, atraumatic, anicteric, mucous membranes moist Respiratory/Chest: chest wall non-tender, no respiratory distress, no accessory muscle use, decreased breath sounds, crackles/rales Cardiovascular: normal peripheral pulses, normal rate, regular rhythm, no gallop/murmur, no JVD Abdomen: normal bowel sounds, soft, non tender, no organomegaly, non distended , no mass, no scars Extremities: no cyanosis, no clubbing Skin: no rash, no lesions, no ulcers Neurologic/Psychiatric: alert, responsive Lymphatic: no neck adenopathy, no groin adenopathy Microbiology Date/Time Source Procedure Growth Status 02/17/18 19:35 Blood Blood Culture - Preliminary NO GROWTH AFTER 24 HOURS Resulted 02/17/18 19:15 Blood Blood Culture - Preliminary NO GROWTH AFTER 24 HOURS Resulted 02/17/18 15:00 Nasal Nares MRSA Culture - Final NO METHICILLIN RESISTANT STAPH AUREUS... Complete 02/17/18 19:18 Stool Clostridium difficile Toxin Assay - Final Complete 02/17/18 15:00 Rectum VRE Culture - Final NO VANCOMYCIN RESISTANT ENTEROCOCCUS ... Complete 02/17/18 15:00 Rectum - Final NO CARBAPENEM-RESISTANT ENTEROBACTERI... Complete Laboratory Tests Test 02/18/18 16:25 02/18/18 19:00 02/18/18 21:20 02/19/18 04:19 Arterial Blood pH 7.280 (7.350-7.450) 7.310 (7.350-7.450) Arterial Blood Partial Pressure CO2 36.6 mmHg (35.0-45.0) 35.4 mmHg (35.0-45.0) Arterial Blood Partial Pressure O2 97.2 mmHg (75.0-100.0) 107.2 mmHg (75.0-100.0) H Arterial Blood HCO3 16.9 mmol/L (22.0-26.0) L 17.5 mmol/L (22.0-26.0) L Arterial Blood Oxygen Saturation 97.2 % (92.0-98.0) 97.9 % (92.0-98.0) Arterial Blood Base Excess -9.0 -7.9 Kalin Test Positive Positive Urine Osmolality 472 mOsm/kg (429-449) H Miscellaneous Test 2 Pending Urine Opiates Screen Negative (NEGATIVE) Urine Barbiturates Screen Negative (NEGATIVE) Phencyclidine (PCP) Screen Negative (NEGATIVE) Urine Amphetamines Screen Negative (NEGATIVE) Urine Benzodiazepines Screen Negative (NEGATIVE) Urine Cocaine Screen Negative (NEGATIVE) Urine Marijuana (THC) Screen Negative (NEGATIVE) White Blood Count 15.3 K/UL (4.8-10.8) H Red Blood Count 3.67 M/UL (4.20-5.40) L Hemoglobin 11.5 G/DL (12.0-16.0) L Hematocrit 32.3 % (37.0-47.0) L Mean Corpuscular Volume 88 FL (80-99) Mean Corpuscular Hemoglobin 31.2 PG (27.0-31.0) H Mean Corpuscular Hemoglobin Concent 35.5 G/DL (32.0-36.0) Red Cell Distribution Width 12.3 % (11.6-14.8) Platelet Count 36 K/UL (150-450) L Mean Platelet Volume 8.6 FL (6.5-10.1) Neutrophils (%) (Auto) % (45.0-75.0) Lymphocytes (%) (Auto) % (20.0-45.0) Monocytes (%) (Auto) % (1.0-10.0) Eosinophils (%) (Auto) % (0.0-3.0) Basophils (%) (Auto) % (0.0-2.0) Differential Total Cells Counted 100 Neutrophils % (Manual) 88 % (45-75) H Lymphocytes % (Manual) 9 % (20-45) L Monocytes % (Manual) 3 % (1-10) Eosinophils % (Manual) 0 % (0-3) Basophils % (Manual) 0 % (0-2) Band Neutrophils 0 % (0-8) Platelet Estimate Decreased L Platelet Morphology Normal Hypochromasia 1+ Sodium Level 139 MMOL/L (136-145) Potassium Level 3.0 MMOL/L (3.5-5.1) L Chloride Level 109 MMOL/L (98-107) H Carbon Dioxide Level 19 MMOL/L (21-32) L Anion Gap 11 mmol/L (5-15) Blood Urea Nitrogen 12 mg/dL (7-18) Creatinine 0.9 MG/DL (0.55-1.30) Estimat Glomerular Filtration Rate mL/min (>60) Glucose Level 117 MG/DL (74-106) H Calcium Level 7.4 MG/DL (8.5-10.1) L Phosphorus Level 3.1 MG/DL (2.5-4.9) Magnesium Level 1.6 MG/DL (1.8-2.4) L Troponin I 0.376 ng/mL (0.000-0.056) Test 02/19/18 06:50 Arterial Blood pH 7.380 (7.350-7.450) Arterial Blood Partial Pressure CO2 27.1 mmHg (35.0-45.0) L Arterial Blood Partial Pressure O2 110.2 mmHg (75.0-100.0) H Arterial Blood HCO3 15.9 mmol/L (22.0-26.0) L Arterial Blood Oxygen Saturation 98.0 % (92.0-98.0) Arterial Blood Base Excess -7.8 Kalin Test Positive Current Medications Medications (Trade) Dose Ordered Sig/Goldy Route PRN Reason Start Time Stop Time Status Last Admin Dose Admin Acetaminophen (Tylenol) 650 mg Q4HR PRN NG Mild Pain/Temp > 100.5 02/18/18 01:30 03/20/18 01:29 02/18/18 21:16 Acetaminophen (Tylenol) 650 mg Q6H PRN RECTAL Mild Pain/Temp > 100.5 02/17/18 17:15 03/19/18 17:14 Chlorhexidine Gluconate (Sadia-Hex 2%) 1 applic DAILY@1999 TOPIC 02/18/18 20:00 03/20/18 19:59 02/18/18 19:44 Dextrose (Dextrose 50%) 25 ml STAT PRN IV Hypoglycemia 02/17/18 17:00 03/19/18 16:59 Dextrose (Dextrose 50%) 50 ml STAT PRN IV Hypoglycemia 02/17/18 17:00 03/19/18 16:59 Diphenhydramine HCl (Benadryl) 25 mg Q6H PRN ORAL Itching/Pruritis 02/17/18 17:00 03/19/18 16:59 Dopamine HCl/ Dextrose 250 ml @ 0 mls/hr Q24H IV 02/17/18 21:00 03/19/18 20:59 02/17/18 21:00 Insulin Aspart (NovoLOG) BEFORE MEALS AND HS SUBQ 02/17/18 21:00 03/19/18 20:59 02/18/18 06:39 Lorazepam (Ativan 2mg/ml 1ml) 0.5 mg Q4H PRN IV For Anxiety 02/17/18 17:00 02/24/18 16:59 Norepinephrine Bitartrate 4 mg/ Dextrose 250 ml @ 0 mls/hr Q24H IV 02/17/18 21:15 03/19/18 21:14 02/18/18 09:37 Ondansetron HCl (Zofran) 4 mg Q6H PRN IVP Nausea & Vomiting 02/17/18 17:00 03/19/18 16:59 Pantoprazole (Protonix) 40 mg DAILY ORAL 02/18/18 09:00 03/20/18 08:59 02/19/18 08:50 Piperacillin Sod/ Tazobactam Sod 3.375 gm/Dextrose 110 ml @ 27.5 mls/hr EVERY 8 HOURS IVPB 02/17/18 22:00 02/22/18 21:59 02/19/18 06:00 Sodium Chloride 1,000 ml @ 150 mls/hr Q6H40M IV 02/18/18 08:15 03/20/18 08:14 02/19/18 03:52 Vancomycin HCl (Vanco rx to dose) 1 ea DAILY PRN MISC Per rx protocol 02/17/18 21:00 03/19/18 20:59 Vancomycin HCl 500 mg/Dextrose 110 ml @ 110 mls/hr Q24H IVPB 02/18/18 21:00 02/23/18 20:59 02/18/18 21:07 Lorenzo Faustin M.D. Feb 19, 2018 11:24
[2018-02-19] MEDS ORDERED: Cefepime HCl 2 GM in D5W 55 ML IVPB SCH (11:30)
[2018-02-19 11:37] LABS: INR 1.3 (0.9-1.1)
[2018-02-19] MEDS ORDERED: Sterile Water Irrig 1000ml IRRIG ONE (11:41)
[2018-02-19] MEDS ORDERED: NS 275ml ONE (11:41)
[2018-02-19 12:22] LABS: BILIRUBIN,DIRECT 0.3 MG/DL (0.0-0.3); BILIRUBIN,TOTAL 0.9 MG/DL (0.2-1.0)
[2018-02-19 13:06] LABS: APPEARANCE,URINE SLIGHTLY CLOUDY; BILIRUBIN, URINE NEGATIVE (NEGATIVE); COLOR,URINE PALE YELLOW; GLUCOSE, URINE (UA) NEGATIVE (NEGATIVE); KETONES,URINE 1+ (NEGATIVE); LEUKOCYTE ESTERASE ,URINE 1+ (NEGATIVE); NITRITE,URINE NEGATIVE (NEGATIVE); PH,URINE 5 (4.5-8.0); PROTEIN,URINE 2+ (NEGATIVE); UROBILINOGEN,URINE NORMAL MG/DL (0.0-1.0)
[2018-02-19] MEDS: Vancomycin 500mg/D5W 110ml IVPB SCH ×2 (13:23)
--- NOTE | 2018-02-19 15:22 | Cardiac Electrophysiology PN ---
Assessment/Plan Assessment/Plan 1. Elevated troponin initially was 0.9 and then went down to 0.7. Prior to that was 0.068. The patient's EKG showed inferolateral depression. Her echocardiogram however showed normal left ventricular systolic function with ejection fraction of 55%. ECG no acute changes. 2. Hypotension, likely due to heat stroke. Resolved 3. Heat stroke. 4. Respiratory failure, Extubated 5. Altered level of consciousness. 6. Thrombocytopenia. DW RN Subjective Subjective Was just extubated in ICU Objective Last 24 Hour Vital Signs Date Time Temp Pulse Resp B/P (MAP) Pulse Ox O2 Delivery O2 Flow Rate FiO2 02/19/18 15:00 89 18 136/72 (93) 99 02/19/18 14:00 99 18 140/74 (96) 95 02/19/18 13:00 89 18 138/70 (92) 100 02/19/18 12:00 91 02/19/18 12:00 Mechanical Ventilator 02/19/18 12:00 98.6 88 18 129/84 (99) 100 98.6 02/19/18 11:00 82 18 129/58 (81) 100 02/19/18 10:00 81 18 119/53 (75) 100 02/19/18 09:18 100 02/19/18 09:14 88 19 30 02/19/18 09:00 80 18 121/83 (96) 100 02/19/18 08:00 76 02/19/18 08:00 Mechanical Ventilator 02/19/18 08:00 30 02/19/18 08:00 99.6 80 18 121/83 (96) 100 99.6 02/19/18 07:00 86 20 115/62 (79) 100 02/19/18 06:30 84 20 30 02/19/18 06:00 86 20 116/68 (84) 100 02/19/18 05:16 89 21 30 02/19/18 05:00 83 19 136/62 (86) 100 02/19/18 04:00 30 02/19/18 04:00 Mechanical Ventilator 02/19/18 04:00 89 02/19/18 04:00 99.7 83 19 113/63 (80) 100 99.7 02/19/18 03:23 91 21 30 02/19/18 03:00 91 19 121/66 (84) 100 02/19/18 02:00 100.1 94 21 102/63 (76) 100 100.1 02/19/18 01:00 97 20 118/70 (86) 100 02/19/18 00:45 90 21 30 02/19/18 00:00 88 02/19/18 00:00 Mechanical Ventilator 02/19/18 00:00 100.3 80 20 89/63 (72) 100 100.3 02/19/18 00:00 30 02/18/18 23:00 86 20 90/48 (62) 100 02/18/18 22:41 30 02/18/18 22:36 90 20 30 02/18/18 22:00 100.7 92 16 94/58 (70) 100 100.7 02/18/18 21:46 100.7 02/18/18 21:16 100.7 02/18/18 21:09 114 20 30 02/18/18 21:00 97 15 102/56 (71) 100 02/18/18 21:00 119/68 02/18/18 20:00 100.0 119 20 131/85 (100) 98 100.0 02/18/18 20:00 Mechanical Ventilator 02/18/18 20:00 30 02/18/18 19:52 118 02/18/18 19:05 120 20 30 02/18/18 19:00 112 16 125/79 (94) 98 02/18/18 18:00 76 16 122/88 (99) 98 02/18/18 17:17 67 22 30 02/18/18 17:00 75 16 116/60 (78) 98 02/18/18 16:00 85 02/18/18 16:00 98.4 80 18 110/57 (74) 100 98.4 02/18/18 16:00 30 02/18/18 16:00 Mechanical Ventilator 02/18/18 15:25 84 23 30 Intake and Output 02/18/18 02/19/18 19:00 07:00 Intake Total 1260.0 ml 2097.5 ml Output Total 1160 ml 1250 ml Balance 100.0 ml 847.5 ml Intake IV Total 1260.0 ml 2047.5 ml Other 50 ml Output Urine Total 1160 ml 1200 ml Stool Total 50 ml Laboratory Tests Test 02/18/18 16:25 02/18/18 19:00 02/18/18 21:20 02/19/18 04:19 Arterial Blood pH 7.280 (7.350-7.450) 7.310 (7.350-7.450) Arterial Blood Partial Pressure CO2 36.6 mmHg (35.0-45.0) 35.4 mmHg (35.0-45.0) Arterial Blood Partial Pressure O2 97.2 mmHg (75.0-100.0) 107.2 mmHg (75.0-100.0) H Arterial Blood HCO3 16.9 mmol/L (22.0-26.0) L 17.5 mmol/L (22.0-26.0) L Arterial Blood Oxygen Saturation 97.2 % (92.0-98.0) 97.9 % (92.0-98.0) Arterial Blood Base Excess -9.0 -7.9 Kalin Test Positive Positive Urine Osmolality 472 mOsm/kg (429-449) H Miscellaneous Test 2 Pending Urine Opiates Screen Negative (NEGATIVE) Urine Barbiturates Screen Negative (NEGATIVE) Phencyclidine (PCP) Screen Negative (NEGATIVE) Urine Amphetamines Screen Negative (NEGATIVE) Urine Benzodiazepines Screen Negative (NEGATIVE) Urine Cocaine Screen Negative (NEGATIVE) Urine Marijuana (THC) Screen Negative (NEGATIVE) White Blood Count 15.3 K/UL (4.8-10.8) H Red Blood Count 3.67 M/UL (4.20-5.40) L Hemoglobin 11.5 G/DL (12.0-16.0) L Hematocrit 32.3 % (37.0-47.0) L Mean Corpuscular Volume 88 FL (80-99) Mean Corpuscular Hemoglobin 31.2 PG (27.0-31.0) H Mean Corpuscular Hemoglobin Concent 35.5 G/DL (32.0-36.0) Red Cell Distribution Width 12.3 % (11.6-14.8) Platelet Count 36 K/UL (150-450) L Mean Platelet Volume 8.6 FL (6.5-10.1) Neutrophils (%) (Auto) % (45.0-75.0) Lymphocytes (%) (Auto) % (20.0-45.0) Monocytes (%) (Auto) % (1.0-10.0) Eosinophils (%) (Auto) % (0.0-3.0) Basophils (%) (Auto) % (0.0-2.0) Differential Total Cells Counted 100 Neutrophils % (Manual) 88 % (45-75) H Lymphocytes % (Manual) 9 % (20-45) L Monocytes % (Manual) 3 % (1-10) Eosinophils % (Manual) 0 % (0-3) Basophils % (Manual) 0 % (0-2) Band Neutrophils 0 % (0-8) Platelet Estimate Decreased L Platelet Morphology Normal Hypochromasia 1+ Sodium Level 139 MMOL/L (136-145) Potassium Level 3.0 MMOL/L (3.5-5.1) L Chloride Level 109 MMOL/L (98-107) H Carbon Dioxide Level 19 MMOL/L (21-32) L Anion Gap 11 mmol/L (5-15) Blood Urea Nitrogen 12 mg/dL (7-18) Creatinine 0.9 MG/DL (0.55-1.30) Estimat Glomerular Filtration Rate mL/min (>60) Glucose Level 117 MG/DL (74-106) H Calcium Level 7.4 MG/DL (8.5-10.1) L Phosphorus Level 3.1 MG/DL (2.5-4.9) Magnesium Level 1.6 MG/DL (1.8-2.4) L Troponin I 0.376 ng/mL (0.000-0.056) Test 02/19/18 06:50 02/19/18 10:00 02/19/18 10:20 02/19/18 11:00 Arterial Blood pH 7.380 (7.350-7.450) Arterial Blood Partial Pressure CO2 27.1 mmHg (35.0-45.0) L Arterial Blood Partial Pressure O2 110.2 mmHg (75.0-100.0) H Arterial Blood HCO3 15.9 mmol/L (22.0-26.0) L Arterial Blood Oxygen Saturation 98.0 % (92.0-98.0) Arterial Blood Base Excess -7.8 Kalin Test Positive Stool Occult Blood Pending Total Bilirubin 0.9 MG/DL (0.2-1.0) Direct Bilirubin 0.3 MG/DL (0.0-0.3) Lactate Dehydrogenase 294 U/L (81-234) H Heparin-PF4 Antibody Screen Pending Reticulocyte Count 1.0 % (0.0-2.0) Haptoglobin Pending Prothrombin Time 13.4 SEC (9.30-11.50) H Prothromb Time International Ratio 1.3 (0.9-1.1) H PTT Mixing Study Pending APTT Patient/Control Mix Pending Mix PTT Incubation Time Pending Mix PTT Normal/Saline 1:1 Immediate Pending Thrombin Time Normal Plasma Pending Fibrinogen 437 mg/dL (200-400) H Lactic Acid Level 1.30 mmol/L (0.4-2.0) Ferritin 648 NG/ML (8-388) H Folate 38.4 NG/ML (8.6-58.9) Thyroid Stimulating Hormone (TSH) 0.486 uiU/mL (0.358-3.740) Free Thyroxine 1.23 NG/DL (0.76-1.46) Triiodothyonine (T3) Pending Free Triiodothyronine 1.4 pg/mL (2.3-4.2) L Triiodothyronine (T3) Uptake Pending Test 02/19/18 12:40 Urine Color Pale yellow Urine Appearance Slightly cloudy Urine pH 5 (4.5-8.0) Urine Specific [place] 1.015 (1.005-1.035) Urine Protein 2+ (NEGATIVE) H Urine Glucose (UA) Negative (NEGATIVE) Urine Ketones 1+ (NEGATIVE) H Urine Occult Blood 5+ (NEGATIVE) H Urine Nitrite Negative (NEGATIVE) Urine Bilirubin Negative (NEGATIVE) Urine Urobilinogen Normal MG/DL (0.0-1.0) Urine Leukocyte Esterase 1+ (NEGATIVE) H Urine RBC Tntc /HPF (0 - 2) H Urine WBC 2-4 /HPF (0 - 2) Urine Squamous Epithelial Cells Few /LPF (NONE/OCC) Urine Amorphous Sediment Many /LPF (NONE) H Urine Bacteria Few /HPF (NONE) Microbiology Date/Time Source Procedure Growth Status 02/17/18 19:35 Blood Blood Culture - Preliminary Resulted 02/17/18 19:15 Blood Blood Culture - Preliminary Resulted 02/17/18 15:00 Nasal Nares MRSA Culture - Final NO METHICILLIN RESISTANT STAPH AUREUS... Complete 02/17/18 19:18 Stool Clostridium difficile Toxin Assay - Final Complete 02/17/18 15:00 Rectum VRE Culture - Final NO VANCOMYCIN RESISTANT ENTEROCOCCUS ... Complete 02/17/18 15:00 Rectum - Final NO CARBAPENEM-RESISTANT ENTEROBACTERI... Complete Objective HEAD AND NECK: No JVD. LUNGS: Clear. CARDIOVASCULAR: Shows regular S1 and S2 with no gallop or murmur. ABDOMEN: Soft. EXTREMITIES: No pitting edema. Raghavendra Morel MD Feb 19, 2018 15:21
[2018-02-19] MEDS: Acetaminophen 650mg/20.3ml NG PRN ×2 (15:52→20:16)
--- NOTE | 2018-02-19 17:57 | Cardiology Report ---
APPROVED REPORT EXAM: Two-dimensional and M-mode echocardiogram with Doppler and color Doppler. INDICATION Altered mental status Technically difficult and limited study due to poor acoustic windows and cardiac angle. Study quality precludes accurate assessment of regional wall motion. M-mode measurements of left ventricle not obtainable due to cardiac position (angle) Normal left ventricular chamber size, lower range of normal systolic function and wall motion to the extent visualized . Left ventricular ejection fraction estimated to be 50 %. There appears to be no evidence of left ventricular hypertrophy. Anterior Echo-free space, may be due to pericardial fat or effusion. All other cardiac chamber sizes are within normal limits. Mild focal aortic valve sclerosis with adequate cusp excursion. Thickened mitral valve leaflets with normal excursion. Mild mitral annulus and aortic root calcification. Pulmonic valve not visualized. Normal tricuspid valve structure. IVC dilated at 2.5 cm without physiological collapse. A color flow and spectral Doppler study was performed and revealed: Mild aortic insufficiency. Mild mitral regurgitation. reduced left ventricular relaxation c/w impaired relaxation diastolic dysfunction. Mild tricuspid regurgitation. Tricuspid systolic velocities suggests peak right ventricular systolic pressure of 35 mmHg, consistent with mild pulmonary hypertension.
--- NOTE | 2018-02-19 18:31 | Cardiology Report ---
APPROVED REPORT EKG Measurement Heart [id number] Normal sinus rhythm Normal ECG
[2018-02-19] MEDS: Dyna-Hex 2% Top Sol 2oz TOPIC SCH (19:55)
[2018-02-19] MEDS: DOPamine 400mg/250ml 250 ML IV SCH (20:43)
--- NOTE | 2018-02-19 22:30 | Consultation ---
DATE OF CONSULTATION: 02/19/2018 INFECTIOUS DISEASE CONSULTATION CONSULTING PHYSICIAN: Lorenzo Faustin M.D. REQUESTING PHYSICIAN: Jones Aguayo M.D. REASON FOR CONSULTATION: Fever and leukocytosis in a patient who was recently intubated in ICU and on antibiotics treatment. Recommendation for evaluation and management. HISTORY OF PRESENT ILLNESS: The patient is a 77-year-old female with no past medical history, who was brought in to [facility] Emergency Room for altered mental status by her son. The patient was walking in [place] during the hot time two days ago and she developed severe dehydration and became altered, unconscious, and almost collapsed. She had agonal respiration. She was walking at least for [address] and became unresponsive. The patient was driven by her son's car to the emergency room at [facility]. She was found to be extremely febrile with temperature of 108 degrees and pulse of 146 with respiration of 23. She was hypotensive with blood pressure of 73/48, so she was started on IV fluid for hydration, intubated to protect her airway, and started on vancomycin and Zosyn empiric coverage antibiotics treatment for possible sepsis and pneumonia. The patient was monitored in the intensive care unit. Her platelet was noticed to be declining every day. The patient was seen and evaluated by cyber security engineer and light rail signal technician so far. She was extubated successfully, but continued to have leukocytosis with white count of 15.3 and fever of 100.7 degrees, so Infectious Disease consultation was requested for further evaluation and management. As of note, the patient is Indonesian speaker, poor historian, could not provide good history. History was mainly obtained from the family who were at the bedside at the time of the interview. REVIEW OF SYSTEMS: Unable to obtain. The patient is a poor historian, could not provide good history. PAST MEDICAL HISTORY: Not on record. PAST SURGICAL HISTORY: Not on record. SOCIAL HISTORY: She lives at home with her family. No drugs, tobacco, or alcohol. ALLERGIES: No known drug allergy. MEDICATIONS: She is currently on vancomycin and Zosyn. LABORATORY AND DIAGNOSTIC DATA: Labs showed white count of 15.3, hemoglobin of 11.5, and platelet count of 36,000. BUN of 12 and creatinine of 0.9. AST of 160, ALT of 109. Troponin of 0.068. Urinalysis initially was negative for UTI, +1 leukocyte esterase. Microbiology, blood culture x2 on February 17, negative to date. C. difficile toxin, negative on the . Imaging, chest x-ray showed pulmonary vascular congestion. Repeated chest x-ray later showed interval placement of central venous catheter in the right subclavian approach, tip in the mid lower SVC, no pneumothorax. PHYSICAL EXAMINATION: VITAL SIGNS: Temperature 99.6 degrees, pulse 82, respiration 18, blood pressure 129/58, and saturation 100% on FiO2 of 30%. GENERAL: An elderly female, morbidly obese, Indonesian speaker, lying in bed, awake, alert, responsive, not in acute distress. HEENT: Normocephalic and atraumatic. Pupils are reactive to light. Moist oral mucosa. No exudate or thrush. NECK: Supple. No lymphadenopathy. CARDIOVASCULAR: Regular rate and rhythm. No murmur or gallop. LUNGS: She had diminished breathing sounds at the bases with crackles. No wheezing or rhonchi. ABDOMEN: Soft, obese, nontender, and nondistended. Normal bowel sounds. No hepatosplenomegaly. No ascites. EXTREMITIES: Trace edema. No cyanosis. No clubbing. ASSESSMENT AND RECOMMENDATION: 1. Sepsis with fever and leukocytosis. Source could be due to pneumonia. We will send blood culture, UA, and chest x-ray to rule out any new infiltration. Continue vancomycin and Zosyn empiric coverage for now pending initial blood culture, which remained negative so far. 2. Fever, suspect heat stroke-related versus sepsis. Continue wide-spectrum antibiotics and Tylenol. Monitor vitals. Use cooling measures if needed. 3. Acute respiratory failure, status post extubation, improving. We will repeat chest x-ray to rule out nosocomial pneumonia or new infiltration. Pulmonary team is following. 4. Acute kidney failure due to dehydration, improved. Monitor renal function tests. Avoid nephrotoxic. 5. Heat stroke with dehydration. Continue cooling measure as needed and hydration. Monitor electrolytes and replace as needed. 6. Thrombocytopenia. We will order HIT since the patient was on heparin. Hematology team is following. Thank you for the consult. ID will continue to follow. Lorenzo Faustin M.D. DR: TATYANA JOB#: [id number] CC:
[2018-02-19] MEDS ORDERED: Albuterol/Ipratropium 3ml neb HHN PRN (23:15)
[2018-02-20] VITALS (20 sets, daily range): BP systolic 102–148; BP diastolic 57–78
[2018-02-20] MEDS: Vancomycin 500mg/D5W 110ml IVPB SCH ×4 (00:37→13:00)
[2018-02-20] MEDS: Albuterol/Ipratropium 3ml neb HHN SCH ×2 (00:49→07:28)
[2018-02-20] MEDS: Piperacillin/Tazobactam 3.375 GM in D5W 110 ML IVPB SCH ×3 (05:31→21:23)
[2018-02-20] MEDS: NovoLOG Insulin Flexpen SUBQ SCH ×4 (06:10→20:36)
[2018-02-20 06:15] LABS: HEMOGLOBIN 10.3 G/DL (12.0-16.0); MEAN CORPUSCULAR VOLUME 88 FL (80-99); PLATELET COUNT 43 K/UL (150-450); RED CELL DISTRIBUTION WIDTH 12.3 % (11.6-14.8); WHITE BLOOD COUNT 11.3 K/UL (4.8-10.8)
[2018-02-20 06:34] LABS: ANION GAP 8 mmol/L (5-15); BLOOD UREA NITROGEN 7 mg/dL (7-18); CALCIUM 7.9 MG/DL (8.5-10.1); CARBON DIOXIDE 24 MMOL/L (21-32); CHLORIDE 107 MMOL/L (98-107); CREATININE 0.7 MG/DL (0.55-1.30); SODIUM 139 MMOL/L (136-145)
--- NOTE | 2018-02-20 08:28 | Pulmonolgy Critical Care Note ---
Critical Care - Asmt/Plan Problems: (1) Staphylococcal sepsis (2) Lactic acid acidosis Assessment & Plan: IMPROVED (3) NATTY (acute kidney injury) Assessment & Plan: RESOLVED (4) Heat stroke Assessment & Plan: IMPROVED (5) Hyperthermia Assessment & Plan: IMPROVED (6) Acute respiratory failure Assessment & Plan: GAS EXCHANGE IMPROVED (7) Altered level of consciousness Assessment & Plan: BETTER (8) NSTEMI (non-ST elevated myocardial infarction) Assessment & Plan: TROPS DOWNTRENDING, No WMA, Good LVEF, likely demand ischemia (9) Thrombocytopenia Assessment & Plan: ? HIT vs other medication induced Respiratory: monitor respiratory rate, other - D/C DUOnebs, change to ATROVENT only HHN's given ST Cardiac: continue to monitor HR/BP Renal: keep IV fluid, check electrolytes Infectious Disease: check cultures, continue antibiotics - vanco & zosyn per ID , other - F/U ID recs Gastrointestinal: other - SEQUINS WINDER eval then start diet Endocrine: monitor blood sugar, continue sliding scale insulin Hematologic: monitor H/H, other - monitor platelets, F/U heme recs Neurologic: keep patient comfortable Prophylaxis: Protonix, Heparin Disposition: keep in ICU Time Spent (Minutes): 40 Notes Reviewed: marketing operations manager, renal, ID, other - Heme-onc Critical Care - Objective Last 24 Hour Vital Signs Date Time Temp Pulse Resp B/P (MAP) Pulse Ox O2 Delivery O2 Flow Rate FiO2 02/20/18 08:00 95 21 131/65 (87) 97 02/20/18 08:00 Nasal Cannula 2.0 02/20/18 07:30 81 19 100 Nasal Cannula 2.0 28 02/20/18 07:20 83 23 98 Nasal Cannula 2.0 28 02/20/18 07:19 98 Nasal Cannula 2.0 28 02/20/18 07:19 Nasal Cannula 2.0 28 02/20/18 07:00 82 22 129/69 (89) 99 02/20/18 06:00 78 19 132/66 (88) 99 02/20/18 05:00 83 21 129/65 (86) 99 02/20/18 04:00 99.2 84 21 129/69 (89) 98 99.2 02/20/18 04:00 Nasal Cannula 2.0 02/20/18 03:10 90 02/20/18 03:00 85 20 102/61 (75) 99 02/20/18 02:00 84 19 110/60 (77) 98 02/20/18 01:02 79 18 100 Nasal Cannula 2.0 28 02/20/18 01:01 28 02/20/18 01:00 78 19 123/72 (89) 99 02/20/18 00:51 80 18 99 Nasal Cannula 2.0 28 02/20/18 00:00 Nasal Cannula 2.0 02/20/18 00:00 98.7 104 26 122/66 (84) 98 98.7 02/19/18 23:06 92 02/19/18 23:00 100 23 139/74 (95) 98 02/19/18 22:00 112 23 110/59 (76) 93 02/19/18 21:15 115/80 02/19/18 21:00 108 22 115/60 (78) 94 02/19/18 20:43 136/71 02/19/18 20:35 93 Nasal Cannula 2.0 28 02/19/18 20:33 Nasal Cannula 2.0 28 02/19/18 20:00 Nasal Cannula 2.0 02/19/18 20:00 98.4 107 24 137/79 (98) 97 98.4 02/19/18 19:22 103 02/19/18 19:00 95 23 132/68 (89) 98 02/19/18 18:00 97 23 134/70 (91) 98 02/19/18 17:00 95 18 136/54 (81) 97 02/19/18 16:22 98.8 02/19/18 16:00 98.2 88 18 136/62 (86) 100 98.2 02/19/18 16:00 92 02/19/18 16:00 Nasal Cannula 2.0 02/19/18 15:52 98.8 02/19/18 15:00 89 18 136/72 (93) 99 02/19/18 14:00 99 18 140/74 (96) 95 02/19/18 13:00 89 18 138/70 (92) 100 02/19/18 12:00 91 02/19/18 12:00 Nasal Cannula 2.0 02/19/18 12:00 98.6 88 18 129/84 (99) 100 98.6 02/19/18 11:00 82 18 129/58 (81) 100 02/19/18 10:00 81 18 119/53 (75) 100 02/19/18 09:18 100 02/19/18 09:14 88 19 30 02/19/18 09:00 80 18 121/83 (96) 100 Status: awake Condition: improving HEENT: atraumatic, normocephalic Lungs: clear Heart: HR/BP unstable Abdomen: soft, non-tender, active bowel sounds Extremities: no C/C/E Decubiti: location - knee abrasions Micro: Microbiology Date/Time Source Procedure Growth Status 02/17/18 19:35 Blood Blood Culture - Preliminary Staphylococcus Species Resulted 02/17/18 19:15 Blood Blood Culture - Preliminary Staphylococcus Species Resulted 02/17/18 15:00 Nasal Nares MRSA Culture - Final NO METHICILLIN RESISTANT STAPH AUREUS... Complete 02/17/18 19:18 Stool Clostridium difficile Toxin Assay - Final Complete 02/17/18 15:00 Rectum VRE Culture - Final NO VANCOMYCIN RESISTANT ENTEROCOCCUS ... Complete 02/17/18 15:00 Rectum - Final NO CARBAPENEM-RESISTANT ENTEROBACTERI... Complete Accucheck: 136 Critical Care - Subjective ROS Limited/Unobtainable: Yes ICU Day: 4 Intubation Day: extubated Interval Events: Tm 100, ST to 150, + wheezing O/N, no cough, no SOB, no F/C SC removed, FC removed, has rectal tube Condition: improving IV Access: peripheral EKG Rhythm: Sinus Tachycardia FI02: 28 Vent Support Breath Rate: 20 Vent Support Mode: CPAP Vent Tidal Volume: 550 Sputum Amount: None PEEP: 5.0 PIP: 14 Fluids: NS@ 75 I&O: Intake and Output 02/19/18 02/20/18 19:00 07:00 Intake Total 1791.25 ml 1211.5 ml Output Total 1390 ml 1045 ml Balance 401.25 ml 166.5 ml Intake IV Total 1791.25 ml 1161.5 ml Other 50 ml Output Urine Total 1290 ml 995 ml Stool Total 100 ml 50 ml Subjective: No F/C/CP/SOB/N/V/D/C/abdominal pain/urinary complaints ET-Tube: 7.0 ET Position: 20 Labs: Laboratory Tests Test 02/19/18 10:00 02/19/18 10:20 02/19/18 11:00 02/19/18 12:40 Stool Occult Blood Negative (NEGATIVE) Total Bilirubin 0.9 MG/DL (0.2-1.0) Direct Bilirubin 0.3 MG/DL (0.0-0.3) Lactate Dehydrogenase 294 U/L (81-234) H Heparin-PF4 Antibody Screen Pending Reticulocyte Count 1.0 % (0.0-2.0) Haptoglobin Pending Prothrombin Time 13.4 SEC (9.30-11.50) H Prothromb Time International Ratio 1.3 (0.9-1.1) H PTT Mixing Study Pending APTT Patient/Control Mix Pending Mix PTT Incubation Time Pending Mix PTT Normal/Saline 1:1 Immediate Pending Thrombin Time Normal Plasma Pending Fibrinogen 437 mg/dL (200-400) H Lactic Acid Level 1.30 mmol/L (0.4-2.0) Ferritin 648 NG/ML (8-388) H Folate 38.4 NG/ML (8.6-58.9) Thyroid Stimulating Hormone (TSH) 0.486 uiU/mL (0.358-3.740) Free Thyroxine 1.23 NG/DL (0.76-1.46) Triiodothyonine (T3) Pending Free Triiodothyronine 1.4 pg/mL (2.3-4.2) L Triiodothyronine (T3) Uptake Pending Urine Color Pale yellow Urine Appearance Slightly cloudy Urine pH 5 (4.5-8.0) Urine Specific [place] 1.015 (1.005-1.035) Urine Protein 2+ (NEGATIVE) H Urine Glucose (UA) Negative (NEGATIVE) Urine Ketones 1+ (NEGATIVE) H Urine Occult Blood 5+ (NEGATIVE) H Urine Nitrite Negative (NEGATIVE) Urine Bilirubin Negative (NEGATIVE) Urine Urobilinogen Normal MG/DL (0.0-1.0) Urine Leukocyte Esterase 1+ (NEGATIVE) H Urine RBC Tntc /HPF (0 - 2) H Urine WBC 2-4 /HPF (0 - 2) Urine Squamous Epithelial Cells Few /LPF (NONE/OCC) Urine Amorphous Sediment Many /LPF (NONE) H Urine Bacteria Few /HPF (NONE) Test 02/20/18 05:40 White Blood Count 11.3 K/UL (4.8-10.8) H Red Blood Count 3.40 M/UL (4.20-5.40) L Hemoglobin 10.3 G/DL (12.0-16.0) L Hematocrit 30.0 % (37.0-47.0) L Mean Corpuscular Volume 88 FL (80-99) Mean Corpuscular Hemoglobin 30.2 PG (27.0-31.0) Mean Corpuscular Hemoglobin Concent 34.3 G/DL (32.0-36.0) Red Cell Distribution Width 12.3 % (11.6-14.8) Platelet Count 43 K/UL (150-450) L Mean Platelet Volume 8.3 FL (6.5-10.1) Neutrophils (%) (Auto) % (45.0-75.0) Lymphocytes (%) (Auto) % (20.0-45.0) Monocytes (%) (Auto) % (1.0-10.0) Eosinophils (%) (Auto) % (0.0-3.0) Basophils (%) (Auto) % (0.0-2.0) Neutrophils % (Manual) Pending Lymphocytes % (Manual) Pending Platelet Estimate Pending Platelet Morphology Pending Sodium Level 139 MMOL/L (136-145) Potassium Level 3.0 MMOL/L (3.5-5.1) L Chloride Level 107 MMOL/L (98-107) Carbon Dioxide Level 24 MMOL/L (21-32) Anion Gap 8 mmol/L (5-15) Blood Urea Nitrogen 7 mg/dL (7-18) Creatinine 0.7 MG/DL (0.55-1.30) Estimat Glomerular Filtration Rate mL/min (>60) Glucose Level 128 MG/DL (74-106) H Calcium Level 7.9 MG/DL (8.5-10.1) L Stalin García MD Feb 20, 2018 08:28
--- NOTE | 2018-02-20 09:03 | Nephrology Progress Note ---
Assessment/Plan Assessment/Plan HISTORY AND PHYSICAL WAS DICTATED 02/17/18 UNDER [facility] 1. Heat Stroke- initial body temp 107.5. - resolved 2. Hypotension- volume depleted. IVF's - on IVF's, off pressors. Transfer to [facility] 3. Resp FL- extubated 4. DVT prophylaxsis given 5. Hypokalemia/Mg- being replaced today again 6. NATTY- resolved 7. Thrombocytopenia - HIT Ab ordered - Heme to manage 8. Sepsis/Bacteremia- ID to manage Abx - G+ cocci in clusters Subjective Date patient seen: Feb 20, 2018 Time patient seen: 08:59 ROS Limited/Unobtainable: Yes Allergies: Coded Allergies: NO KNOWN ALLERGIES (Verified Allergy, Unknown, 02/17/18) Uncoded Allergies: unknown (Allergy, Unknown, 02/17/18) Subjective Patient now extubated. NG in place. BP stable Objective Last 24 Hour Vital Signs Date Time Temp Pulse Resp B/P (MAP) Pulse Ox O2 Delivery O2 Flow Rate FiO2 02/20/18 08:00 95 21 131/65 (87) 97 02/20/18 08:00 Nasal Cannula 2.0 02/20/18 07:30 81 19 100 Nasal Cannula 2.0 28 02/20/18 07:20 83 23 98 Nasal Cannula 2.0 28 02/20/18 07:19 98 Nasal Cannula 2.0 28 02/20/18 07:19 Nasal Cannula 2.0 28 02/20/18 07:00 82 22 129/69 (89) 99 02/20/18 06:00 78 19 132/66 (88) 99 02/20/18 05:00 83 21 129/65 (86) 99 02/20/18 04:00 99.2 84 21 129/69 (89) 98 99.2 02/20/18 04:00 Nasal Cannula 2.0 02/20/18 03:10 90 02/20/18 03:00 85 20 102/61 (75) 99 02/20/18 02:00 84 19 110/60 (77) 98 02/20/18 01:02 79 18 100 Nasal Cannula 2.0 28 02/20/18 01:01 28 02/20/18 01:00 78 19 123/72 (89) 99 02/20/18 00:51 80 18 99 Nasal Cannula 2.0 28 02/20/18 00:00 Nasal Cannula 2.0 02/20/18 00:00 98.7 104 26 122/66 (84) 98 98.7 02/19/18 23:06 92 02/19/18 23:00 100 23 139/74 (95) 98 02/19/18 22:00 112 23 110/59 (76) 93 02/19/18 21:15 115/80 02/19/18 21:00 108 22 115/60 (78) 94 02/19/18 20:43 136/71 02/19/18 20:35 93 Nasal Cannula 2.0 28 02/19/18 20:33 Nasal Cannula 2.0 28 02/19/18 20:00 Nasal Cannula 2.0 02/19/18 20:00 98.4 107 24 137/79 (98) 97 98.4 02/19/18 19:22 103 02/19/18 19:00 95 23 132/68 (89) 98 02/19/18 18:00 97 23 134/70 (91) 98 02/19/18 17:00 95 18 136/54 (81) 97 02/19/18 16:22 98.8 02/19/18 16:00 98.2 88 18 136/62 (86) 100 98.2 02/19/18 16:00 92 02/19/18 16:00 Nasal Cannula 2.0 02/19/18 15:52 98.8 02/19/18 15:00 89 18 136/72 (93) 99 02/19/18 14:00 99 18 140/74 (96) 95 02/19/18 13:00 89 18 138/70 (92) 100 02/19/18 12:00 91 02/19/18 12:00 Nasal Cannula 2.0 02/19/18 12:00 98.6 88 18 129/84 (99) 100 98.6 02/19/18 11:00 82 18 129/58 (81) 100 02/19/18 10:00 81 18 119/53 (75) 100 02/19/18 09:18 100 02/19/18 09:14 88 19 30 02/19/18 09:00 80 18 121/83 (96) 100 Intake and Output 02/19/18 02/20/18 19:00 07:00 Intake Total 1791.25 ml 1211.5 ml Output Total 1390 ml 1045 ml Balance 401.25 ml 166.5 ml Intake IV Total 1791.25 ml 1161.5 ml Other 50 ml Output Urine Total 1290 ml 995 ml Stool Total 100 ml 50 ml Laboratory Tests 02/19/18 10:00: Stool Occult Blood Negative 02/19/18 10:20: Total Bilirubin 0.9, Direct Bilirubin 0.3, Lactate Dehydrogenase 294H, Heparin- PF4 Antibody Screen [Pending] 02/19/18 11:00: Reticulocyte Count 1.0, Haptoglobin [Pending], Prothrombin Time 13.4H, Prothromb Time International Ratio 1.3H, PTT Mixing Study [Pending], APTT Patient/Control Mix [Pending], Mix PTT Incubation Time [Pending], Mix PTT Normal /Saline 1:1 Immediate [Pending], Thrombin Time Normal Plasma [Pending], Fibrinogen 437H, Lactic Acid Level 1.30, Ferritin 648H, Folate 38.4, Thyroid Stimulating Hormone (TSH) 0.486, Free Thyroxine 1.23, Triiodothyonine (T3) [ Pending], Free Triiodothyronine 1.4L, Triiodothyronine (T3) Uptake [Pending] 02/19/18 12:40: Urine Color Pale yellow, Urine Appearance Slightly cloudy, Urine pH 5, Urine Specific [place] 1.015, Urine Protein 2+H, Urine Glucose (UA) Negative, Urine Ketones 1+H, Urine Occult Blood 5+H, Urine Nitrite Negative, Urine Bilirubin Negative, Urine Urobilinogen Normal, Urine Leukocyte Esterase 1+H, Urine RBC TntcH, Urine WBC 2-4, Urine Squamous Epithelial Cells Few, Urine Amorphous Sediment ManyH, Urine Bacteria Few 02/20/18 05:40: White Blood Count 11.3H, Red Blood Count 3.40L, Hemoglobin 10.3L, Hematocrit 30.0L, Mean Corpuscular Volume 88, Mean Corpuscular Hemoglobin 30.2, Mean Corpuscular Hemoglobin Concent 34.3, Red Cell Distribution Width 12.3, Platelet Count 43L, Mean Platelet Volume 8.3, Neutrophils (%) (Auto) , Lymphocytes (%) ( Auto) , Monocytes (%) (Auto) , Eosinophils (%) (Auto) , Basophils (%) (Auto) , Differential Total Cells Counted 100, Neutrophils % (Manual) 82H, Lymphocytes % (Manual) 7L, Monocytes % (Manual) 10, Eosinophils % (Manual) 0, Basophils % ( Manual) 0, Band Neutrophils 1, Platelet Estimate DecreasedL, Platelet Morphology Normal, Sodium Level 139, Potassium Level 3.0L, Chloride Level 107, Carbon Dioxide Level 24, Anion Gap 8, Blood Urea Nitrogen 7, Creatinine 0.7, Estimat Glomerular Filtration Rate , Glucose Level 128H, Calcium Level 7.9L Height (Feet): 5 Weight (Pounds): 160 General Appearance: no apparent distress, alert EENT: normal ENT inspection Neck: non-tender, normal alignment, supple Cardiovascular: normal rate, regular rhythm Respiratory/Chest: lungs clear, normal breath sounds Abdomen: normal bowel sounds, non tender, soft Edema: no edema noted Arm (L), no edema noted Arm (R), no edema noted Leg (L), no edema noted Leg (R), no edema noted Pedal (L), no edema noted Pedal (R), no edema noted Generalized Jones Aguayo M.D. Feb 20, 2018 09:03
[2018-02-20] MEDS: Acetaminophen 650mg/20.3ml NG PRN (09:05)
[2018-02-20] MEDS ORDERED: Ipratropium 0.02% Inh Soln 2.5ml UD HHN PRN ×2 (09:30→19:00)
--- NOTE | 2018-02-20 09:45 | Consultation ---
DATE OF CONSULTATION: 02/19/2018 HEMATOLOGY/ONCOLOGY CONSULTATION CONSULTING PHYSICIAN: Link Diez M.D. REQUESTING PHYSICIAN: 00:10___ REASON FOR CONSULTATION: Evaluation of severe thrombocytopenia in addition to, appears to be in DIC with lactic acidosis. IDENTIFYING DATA: Dear 00:16__, The patient is a pleasant 77-year-old female with past medical history, which is significant for altered mental status, difficult to obtain any further history, agonal respirations report upon ambulation. Underwent CPR, was less responsive, noted to have blood pressure 72/48 and she was 108. The patient is in the ICU, placed on pressors. Given fluids. Elevated troponin was noted. The patient is seen by Cardiology Service, Dr. Morel as well as Pulmonary team Dr. García, and troponin downtrending, good LVEF; however, noted to have severe thrombocytopenia. Hematology Service was consulted for further evaluation and treatment. At this time, imaging has been reviewed. Chest x-ray reviewed shows endotracheal tube. The patient was intubated and 01:17__ CBC and a CAT scan of the brain, there was no acute findings are noted. PAST MEDICAL HISTORY: Difficult to obtain, but as noted above. PAST SURGICAL HISTORY: None noted. ALLERGIES: No known drug allergies. MEDICATIONS: Reviewed. REVIEW OF SYSTEMS: Difficult to obtain, the patient is intubated. PHYSICAL EXAMINATION: VITAL SIGNS: Reviewed. GENERAL: No acute distress. PULMONARY: Decreased breath sounds. CARDIOVASCULAR: Regular rate. No S3 or S4. ABDOMEN: Soft, nontender, and nondistended. EXTREMITIES: A 1+ edema. LABORATORY DATA: At this time, laboratories reviewed, downgoing trend platelet count and currently platelet count is approximately 36,000 downgoing from 69,000. ASSESSMENT AND RECOMMENDATIONS: 1. Thrombocytopenia secondary to underlying DIC with underlying infection. The patient requiring pressors at this time with altered mental status in addition to lactic acidosis. We will obtain DIC panel. 2. Anemia due to underlying hemodilution. Closely monitor hemodilution. 3. Elevated D-dimer likely secondary to acute shock. 4. Elevated troponin, secondary to underlying demand ischemia. LVEF within normal limits. 5. Respiratory failure, on a vent as well as antibiotics. 6. Altered mental status, likely secondary to shock. Link Diez M.D. DR: ZOHRA JOB#: [id number] CC:
--- NOTE | 2018-02-20 09:45 | History and Physical Report ---
DATE OF ADMISSION: 02/17/2018 REASON FOR ADMISSION: 1. Hyperthermia. 2. Respiratory failure. HISTORY OF PRESENT ILLNESS: The patient is an 78-year-old female who was brought into the emergency room for acute encephalopathy. She was brought in by private vehicle. Noted to be acutely encephalopathic / confused to the point of then being unconscious. Agonal respirations. Intubated in the emergency room. Noted to have a temperature of 107. Son at bedside says that the patient did not take any medications on a regular basis and that the only thing different today was she was walking out in the extreme heat of approximately 110 degrees Fahrenheit today for 25 minutes when she got really weak and tired and then brought over to the emergency room. Creatinine was 1.5. Upon presentation to the emergency room, the patient was hypotensive with systolic in the high 70s. ALLERGIES: No known drug allergies. PAST MEDICAL HISTORY: None. PAST SURGICAL HISTORY: Noncontributory. ALLERGIES: No known drug allergies. LABORATORY DATA: Dated 02/17/2018, white cell count 8.8, hemoglobin 13.8, and platelet count 229. Sodium 140, potassium 4.6, BUN 19, creatinine 1.5, glucose 265, phosphorus 1.9, and calcium 9.7. Creatine kinase of 121. Troponin of 0.068. Urinalysis otherwise negative. PHYSICAL EXAMINATION: VITAL SIGNS: Blood pressure 107/52, 100% oxygen saturation, mechanically ventilated with a pulse of 150, temperature has improved from 107.9 down to 103.3. GENERAL: The patient intubated, agitated, on mechanical ventilation. HEENT: Conjugate eye gaze. No lymphadenopathy. CARDIOVASCULAR: S1 and S2. Regular rate. No rubs or gallops. PULMONARY: Clear to auscultation bilaterally. Fair air movement in all lung shipley. ABDOMEN: Nondistended and nontender. EXTREMITIES: No edema noted. ASSESSMENT AND PLAN: 1. Hyperthermia. At this time, etiology most likely secondary to heat stroke. The patient has a cooling blanket and temperature has decreased down to 103.3. CPK within normal levels. The patient being aggressively hydrated and currently being cooled. The patient was not on any medications. No evidence of medicine induced neuroleptic malignant syndrome. At this time, continue hydration, hemodynamic stability, and cooling. 2. Respiratory failure. The patient intubated on mechanical ventilation. Pulmonary Critical Care, Dr. García has been consulted for further management. 3. Acute kidney injury, secondary to hypotension, ischemic acute tubular necrosis. Hemodynamic stability has been sustained. Continue IV fluids. Renal ultrasound to rule out possibility of obstructive uropathy. Blood pressure currently stable. 4. Deep venous thrombosis prophylaxis with Lovenox subcutaneous. 5. Dehydration. Continue aggressive hydration. 6. Elevated troponin. Supplying demand most likely due to extreme dehydration and hypotension. Cardiology has been consulted for further evaluation and management. Dr. Morel to assess. Jones Aguayo MD DR: GARRISON JOB#: [id number] CC: PAOLA
--- NOTE | 2018-02-20 12:48 | Diagnostic Imaging Report ---
Indication: Cough Comparison: 02/17/2018 A single view chest radiograph was obtained. Findings: Patient has been extubated. Other tubes and lines are stable. The heart is borderline enlarged and stable. Mild vascular congestion demonstrated currently. IMPRESSION: Mild vascular congestion/CHF suspected
[2018-02-20] MEDS ORDERED: Ipratropium 0.02% Inh Soln 2.5ml UD HHN SCH (13:00)
--- NOTE | 2018-02-20 13:42 | General Progress Note ---
Assessment/Plan Status: unchanged Assessment/Plan 1. Thrombocytopenia secondary to underlying DIC with underlying infection. --> The patient requiring pressors at this time with altered mental status in addition to lactic acidosis. --> DIC panel pending 2. Anemia due to underlying hemodilution. --> Closely monitor for improvement --> anemia w/u has been reviewed --> Hgb goal >7 3. Elevated D-dimer likely secondary to acute shock. 4. Elevated troponin, secondary to underlying demand ischemia. --> LVEF within normal limits. 5. Respiratory failure, on a vent as well as antibiotics. 6. Altered mental status, likely secondary to shock. Subjective Date patient seen: Feb 20, 2018 Allergies: Coded Allergies: NO KNOWN ALLERGIES (Verified Allergy, Unknown, 02/17/18) Uncoded Allergies: unknown (Allergy, Unknown, 02/17/18) All Systems: reviewed and negative except above Subjective Pt remains in ICU. No acute events. VQ scan performed, results pending. Patients Vitals has been stable, no acute distress observed, temperature trending down, now its 99.5F Objective Last 24 Hour Vital Signs Date Time Temp Pulse Resp B/P (MAP) Pulse Ox O2 Delivery O2 Flow Rate FiO2 02/20/18 12:00 99.5 82 23 112/64 (80) 99 99.5 02/20/18 12:00 Nasal Cannula 2.0 02/20/18 12:00 87 02/20/18 11:00 89 24 122/69 (86) 98 02/20/18 10:00 104 18 108/71 (83) 99 02/20/18 09:35 99.7 02/20/18 09:05 99.8 02/20/18 09:00 99.8 84 15 114/69 (84) 97 99.8 02/20/18 08:00 163 02/20/18 08:00 95 21 131/65 (87) 97 02/20/18 08:00 Nasal Cannula 2.0 02/20/18 07:30 81 19 100 Nasal Cannula 2.0 28 02/20/18 07:20 83 23 98 Nasal Cannula 2.0 28 02/20/18 07:19 98 Nasal Cannula 2.0 28 02/20/18 07:19 Nasal Cannula 2.0 28 02/20/18 07:00 82 22 129/69 (89) 99 02/20/18 06:00 78 19 132/66 (88) 99 02/20/18 05:00 83 21 129/65 (86) 99 02/20/18 04:00 99.2 84 21 129/69 (89) 98 99.2 02/20/18 04:00 Nasal Cannula 2.0 02/20/18 03:10 90 02/20/18 03:00 85 20 102/61 (75) 99 02/20/18 02:00 84 19 110/60 (77) 98 02/20/18 01:02 79 18 100 Nasal Cannula 2.0 28 02/20/18 01:01 28 02/20/18 01:00 78 19 123/72 (89) 99 02/20/18 00:51 80 18 99 Nasal Cannula 2.0 28 02/20/18 00:00 Nasal Cannula 2.0 02/20/18 00:00 98.7 104 26 122/66 (84) 98 98.7 02/19/18 23:06 92 02/19/18 23:00 100 23 139/74 (95) 98 02/19/18 22:00 112 23 110/59 (76) 93 02/19/18 21:15 115/80 02/19/18 21:00 108 22 115/60 (78) 94 02/19/18 20:43 136/71 02/19/18 20:35 93 Nasal Cannula 2.0 28 02/19/18 20:33 Nasal Cannula 2.0 28 02/19/18 20:00 Nasal Cannula 2.0 02/19/18 20:00 98.4 107 24 137/79 (98) 97 98.4 02/19/18 19:22 103 02/19/18 19:00 95 23 132/68 (89) 98 02/19/18 18:00 97 23 134/70 (91) 98 02/19/18 17:00 95 18 136/54 (81) 97 02/19/18 16:00 98.2 88 18 136/62 (86) 100 98.2 02/19/18 16:00 92 02/19/18 16:00 Nasal Cannula 2.0 02/19/18 15:52 98.8 02/19/18 15:00 89 18 136/72 (93) 99 02/19/18 14:00 99 18 140/74 (96) 95 Intake and Output 02/19/18 02/20/18 19:00 07:00 Intake Total 1791.25 ml 1211.5 ml Output Total 1390 ml 1045 ml Balance 401.25 ml 166.5 ml Intake IV Total 1791.25 ml 1161.5 ml Other 50 ml Output Urine Total 1290 ml 995 ml Stool Total 100 ml 50 ml Laboratory Tests 02/20/18 05:40: White Blood Count 11.3H, Red Blood Count 3.40L, Hemoglobin 10.3L, Hematocrit 30.0L, Mean Corpuscular Volume 88, Mean Corpuscular Hemoglobin 30.2, Mean Corpuscular Hemoglobin Concent 34.3, Red Cell Distribution Width 12.3, Platelet Count 43L, Mean Platelet Volume 8.3, Neutrophils (%) (Auto) , Lymphocytes (%) ( Auto) , Monocytes (%) (Auto) , Eosinophils (%) (Auto) , Basophils (%) (Auto) , Differential Total Cells Counted 100, Neutrophils % (Manual) 82H, Lymphocytes % (Manual) 7L, Monocytes % (Manual) 10, Eosinophils % (Manual) 0, Basophils % ( Manual) 0, Band Neutrophils 1, Platelet Estimate DecreasedL, Platelet Morphology Normal, Sodium Level 139, Potassium Level 3.0L, Chloride Level 107, Carbon Dioxide Level 24, Anion Gap 8, Blood Urea Nitrogen 7, Creatinine 0.7, Estimat Glomerular Filtration Rate , Glucose Level 128H, Calcium Level 7.9L 02/20/18 12:50: Vancomycin Level Trough [Pending] Height (Feet): 5 Weight (Pounds): 160 General Appearance: no apparent distress, alert EENT: PERRL/EOMI Neck: normal alignment Cardiovascular: normal peripheral pulses Respiratory/Chest: normal breath sounds, no respiratory distress Abdomen: soft Link Diez MD Feb 20, 2018 13:42
--- NOTE | 2018-02-20 14:17 | Diagnostic Imaging Report ---
Indication: Chest pain Technique: A ventilation/perfusion scan was performed. Ventilation was performed utilizing 40 mCi of Technetium 99m-DTPA. Perfusion was performed with 5.5 mCi of technetium 99m-MAA injected intravenously. Multiple side by side projections obtained. Findings: Ventilation is slightly heterogeneous with retained tracer in the airway. No defects are identified. Perfusion is homogeneous. No defects are identified. Impression: Low probability for pulmonary embolus
--- NOTE | 2018-02-20 15:33 | Cardiac Electrophysiology PN ---
Assessment/Plan Assessment/Plan 1. Elevated troponin initially was 0.9, 0.06 and 0.7. The patient's EKG showed inferolateral depression. Her echocardiogram however showed normal left ventricular systolic function with ejection fraction of 55%. ECG no acute changes. 2. Hypotension, likely due to heat stroke. Resolved 3. Heat stroke. 4. Respiratory failure, Extubated 5. Altered level of consciousness. 6. Thrombocytopenia. DW RN Subjective Subjective In ICU off the vent. No CP or SOB.Awaiting transfer out of ICU Objective Last 24 Hour Vital Signs Date Time Temp Pulse Resp B/P (MAP) Pulse Ox O2 Delivery O2 Flow Rate FiO2 02/20/18 15:00 86 20 107/57 (74) 95 02/20/18 14:00 80 20 122/66 (84) 95 02/20/18 13:49 72 18 100 Nasal Cannula 2.0 28 02/20/18 13:40 71 22 98 Nasal Cannula 2.0 28 02/20/18 13:00 84 20 119/62 (81) 98 02/20/18 12:00 99.5 82 23 112/64 (80) 99 99.5 02/20/18 12:00 Nasal Cannula 2.0 02/20/18 12:00 87 02/20/18 11:00 89 24 122/69 (86) 98 02/20/18 10:00 104 18 108/71 (83) 99 02/20/18 09:35 99.7 02/20/18 09:05 99.8 02/20/18 09:00 99.8 84 15 114/69 (84) 97 99.8 02/20/18 08:00 163 02/20/18 08:00 95 21 131/65 (87) 97 02/20/18 08:00 Nasal Cannula 2.0 02/20/18 07:30 81 19 100 Nasal Cannula 2.0 28 02/20/18 07:20 83 23 98 Nasal Cannula 2.0 28 02/20/18 07:19 98 Nasal Cannula 2.0 28 02/20/18 07:19 Nasal Cannula 2.0 28 02/20/18 07:00 82 22 129/69 (89) 99 02/20/18 06:00 78 19 132/66 (88) 99 02/20/18 05:00 83 21 129/65 (86) 99 02/20/18 04:00 99.2 84 21 129/69 (89) 98 99.2 02/20/18 04:00 Nasal Cannula 2.0 02/20/18 03:10 90 02/20/18 03:00 85 20 102/61 (75) 99 02/20/18 02:00 84 19 110/60 (77) 98 02/20/18 01:02 79 18 100 Nasal Cannula 2.0 28 02/20/18 01:01 28 02/20/18 01:00 78 19 123/72 (89) 99 02/20/18 00:51 80 18 99 Nasal Cannula 2.0 28 02/20/18 00:00 Nasal Cannula 2.0 02/20/18 00:00 98.7 104 26 122/66 (84) 98 98.7 02/19/18 23:06 92 02/19/18 23:00 100 23 139/74 (95) 98 02/19/18 22:00 112 23 110/59 (76) 93 02/19/18 21:15 115/80 02/19/18 21:00 108 22 115/60 (78) 94 02/19/18 20:43 136/71 02/19/18 20:35 93 Nasal Cannula 2.0 28 02/19/18 20:33 Nasal Cannula 2.0 28 02/19/18 20:00 Nasal Cannula 2.0 02/19/18 20:00 98.4 107 24 137/79 (98) 97 98.4 02/19/18 19:22 103 02/19/18 19:00 95 23 132/68 (89) 98 02/19/18 18:00 97 23 134/70 (91) 98 02/19/18 17:00 95 18 136/54 (81) 97 02/19/18 16:00 98.2 88 18 136/62 (86) 100 98.2 02/19/18 16:00 92 02/19/18 16:00 Nasal Cannula 2.0 02/19/18 15:52 98.8 Intake and Output 02/19/18 02/20/18 19:00 07:00 Intake Total 1791.25 ml 1211.5 ml Output Total 1390 ml 1045 ml Balance 401.25 ml 166.5 ml Intake IV Total 1791.25 ml 1161.5 ml Other 50 ml Output Urine Total 1290 ml 995 ml Stool Total 100 ml 50 ml Laboratory Tests Test 02/20/18 05:40 02/20/18 12:50 White Blood Count 11.3 K/UL (4.8-10.8) H Red Blood Count 3.40 M/UL (4.20-5.40) L Hemoglobin 10.3 G/DL (12.0-16.0) L Hematocrit 30.0 % (37.0-47.0) L Mean Corpuscular Volume 88 FL (80-99) Mean Corpuscular Hemoglobin 30.2 PG (27.0-31.0) Mean Corpuscular Hemoglobin Concent 34.3 G/DL (32.0-36.0) Red Cell Distribution Width 12.3 % (11.6-14.8) Platelet Count 43 K/UL (150-450) L Mean Platelet Volume 8.3 FL (6.5-10.1) Neutrophils (%) (Auto) % (45.0-75.0) Lymphocytes (%) (Auto) % (20.0-45.0) Monocytes (%) (Auto) % (1.0-10.0) Eosinophils (%) (Auto) % (0.0-3.0) Basophils (%) (Auto) % (0.0-2.0) Differential Total Cells Counted 100 Neutrophils % (Manual) 82 % (45-75) H Lymphocytes % (Manual) 7 % (20-45) L Monocytes % (Manual) 10 % (1-10) Eosinophils % (Manual) 0 % (0-3) Basophils % (Manual) 0 % (0-2) Band Neutrophils 1 % (0-8) Platelet Estimate Decreased L Platelet Morphology Normal Sodium Level 139 MMOL/L (136-145) Potassium Level 3.0 MMOL/L (3.5-5.1) L Chloride Level 107 MMOL/L (98-107) Carbon Dioxide Level 24 MMOL/L (21-32) Anion Gap 8 mmol/L (5-15) Blood Urea Nitrogen 7 mg/dL (7-18) Creatinine 0.7 MG/DL (0.55-1.30) Estimat Glomerular Filtration Rate mL/min (>60) Glucose Level 128 MG/DL (74-106) H Calcium Level 7.9 MG/DL (8.5-10.1) L Vancomycin Level Trough 4.6 ug/mL (5.0-12.0) L Microbiology Date/Time Source Procedure Growth Status 02/17/18 19:35 Blood Blood Culture - Preliminary Staphylococcus Species Resulted 02/17/18 19:15 Blood Blood Culture - Preliminary Staphylococcus Species Resulted 02/17/18 19:18 Stool Clostridium difficile Toxin Assay - Final Complete Objective HEAD AND NECK: No JVD. LUNGS: Clear. CARDIOVASCULAR: Shows regular S1 and S2 with no gallop or murmur. ABDOMEN: Soft. EXTREMITIES: No pitting edema. Raghavendra Morel MD Feb 20, 2018 15:33
--- NOTE | 2018-02-20 17:02 | Infectious Diseases Prog Note ---
Assessment/Plan Problems: (1) Sepsis Assessment & Plan: due to staphylococcus spp with fever and leukocytosis , source suspect her knees wounds . will repeat blood culture to confirm , continue vancomycin ad zosyn empirically for now pending final culture results, echo to ruled out valve vegetations which was done earlier (2) Fever Assessment & Plan: heat stroke VS sepsis related, cotinue wide spectrum antibiotics, and tylenol (3) Acute respiratory failure Assessment & Plan: S/P extubation, improved, monitor CXR (4) NATTY (acute kidney injury) Assessment & Plan: due to dehydration, improved , monitor renal function (5) Heat stroke Assessment & Plan: continue cooling measures and hydration (6) Thrombocytopenia Assessment & Plan: will order HIT , since she was on heparin , hematology team is following Subjective Constitutional: Reports: no symptoms HEENT: Reports: no symptoms Respiratory: Reports: no symptoms Breasts: Reports: no symptoms Cardiovascular: Reports: no symptoms Gastrointestinal/Abdominal: Reports: no symptoms Genitourinary: Reports: no symptoms Neurologic: Reports: no symptoms Psychiatric: Reports: no symptoms Skin: Reports: no symptoms Endocrine: Reports: no symptoms Hematologic: Reports: no symptoms Musculoskeletal: Reports: no symptoms Allergies: Coded Allergies: NO KNOWN ALLERGIES (Verified Allergy, Unknown, 02/17/18) Uncoded Allergies: unknown (Allergy, Unknown, 02/17/18) Objective Vital Signs Last 24 Hour Vital Signs Date Time Temp Pulse Resp B/P (MAP) Pulse Ox O2 Delivery O2 Flow Rate FiO2 02/20/18 16:00 89 02/20/18 16:00 Nasal Cannula 2.0 02/20/18 16:00 99.1 85 22 128/63 (84) 96 99.1 02/20/18 15:00 86 20 107/57 (74) 95 02/20/18 14:00 80 20 122/66 (84) 95 02/20/18 13:49 72 18 100 Nasal Cannula 2.0 28 02/20/18 13:40 71 22 98 Nasal Cannula 2.0 28 02/20/18 13:00 84 20 119/62 (81) 98 02/20/18 12:00 99.5 82 23 112/64 (80) 99 99.5 02/20/18 12:00 Nasal Cannula 2.0 02/20/18 12:00 87 02/20/18 11:00 89 24 122/69 (86) 98 02/20/18 10:00 104 18 108/71 (83) 99 02/20/18 09:35 99.7 02/20/18 09:05 99.8 02/20/18 09:00 99.8 84 15 114/69 (84) 97 99.8 02/20/18 08:00 163 02/20/18 08:00 95 21 131/65 (87) 97 02/20/18 08:00 Nasal Cannula 2.0 02/20/18 07:30 81 19 100 Nasal Cannula 2.0 28 02/20/18 07:20 83 23 98 Nasal Cannula 2.0 28 02/20/18 07:19 98 Nasal Cannula 2.0 28 02/20/18 07:19 Nasal Cannula 2.0 28 02/20/18 07:00 82 22 129/69 (89) 99 02/20/18 06:00 78 19 132/66 (88) 99 02/20/18 05:00 83 21 129/65 (86) 99 02/20/18 04:00 99.2 84 21 129/69 (89) 98 99.2 02/20/18 04:00 Nasal Cannula 2.0 02/20/18 03:10 90 02/20/18 03:00 85 20 102/61 (75) 99 02/20/18 02:00 84 19 110/60 (77) 98 02/20/18 01:02 79 18 100 Nasal Cannula 2.0 28 02/20/18 01:01 28 02/20/18 01:00 78 19 123/72 (89) 99 02/20/18 00:51 80 18 99 Nasal Cannula 2.0 28 02/20/18 00:00 Nasal Cannula 2.0 02/20/18 00:00 98.7 104 26 122/66 (84) 98 98.7 02/19/18 23:06 92 02/19/18 23:00 100 23 139/74 (95) 98 02/19/18 22:00 112 23 110/59 (76) 93 02/19/18 21:15 115/80 02/19/18 21:00 108 22 115/60 (78) 94 02/19/18 20:43 136/71 02/19/18 20:35 93 Nasal Cannula 2.0 28 02/19/18 20:33 Nasal Cannula 2.0 28 02/19/18 20:00 Nasal Cannula 2.0 02/19/18 20:00 98.4 107 24 137/79 (98) 97 98.4 02/19/18 19:22 103 02/19/18 19:00 95 23 132/68 (89) 98 02/19/18 18:00 97 23 134/70 (91) 98 02/19/18 17:00 95 18 136/54 (81) 97 Height (Feet): 5 Weight (Pounds): 160 General Appearance: WD/WN, no acute distress HEENT: normocephalic, atraumatic, anicteric Respiratory/Chest: chest wall non-tender, lungs clear, normal breath sounds, no respiratory distress, no accessory muscle use, decreased breath sounds Cardiovascular: normal peripheral pulses, normal rate, regular rhythm, no gallop/murmur, no JVD Abdomen: normal bowel sounds, soft, non tender, no organomegaly, non distended , no mass, no scars Extremities: no cyanosis, no clubbing, other - knees wounds with blisters Skin: no rash, no lesions, no ulcers Neurologic/Psychiatric: alert, oriented x 3, responsive Lymphatic: no neck adenopathy, no groin adenopathy Musculoskeletal: normal muscle bulk, no effusion Microbiology Date/Time Source Procedure Growth Status 02/17/18 19:35 Blood Blood Culture - Preliminary Staphylococcus Species Resulted 02/17/18 19:15 Blood Blood Culture - Preliminary Staphylococcus Species Resulted 02/17/18 19:18 Stool Clostridium difficile Toxin Assay - Final Complete Laboratory Tests Test 02/20/18 05:40 02/20/18 12:50 White Blood Count 11.3 K/UL (4.8-10.8) H Red Blood Count 3.40 M/UL (4.20-5.40) L Hemoglobin 10.3 G/DL (12.0-16.0) L Hematocrit 30.0 % (37.0-47.0) L Mean Corpuscular Volume 88 FL (80-99) Mean Corpuscular Hemoglobin 30.2 PG (27.0-31.0) Mean Corpuscular Hemoglobin Concent 34.3 G/DL (32.0-36.0) Red Cell Distribution Width 12.3 % (11.6-14.8) Platelet Count 43 K/UL (150-450) L Mean Platelet Volume 8.3 FL (6.5-10.1) Neutrophils (%) (Auto) % (45.0-75.0) Lymphocytes (%) (Auto) % (20.0-45.0) Monocytes (%) (Auto) % (1.0-10.0) Eosinophils (%) (Auto) % (0.0-3.0) Basophils (%) (Auto) % (0.0-2.0) Differential Total Cells Counted 100 Neutrophils % (Manual) 82 % (45-75) H Lymphocytes % (Manual) 7 % (20-45) L Monocytes % (Manual) 10 % (1-10) Eosinophils % (Manual) 0 % (0-3) Basophils % (Manual) 0 % (0-2) Band Neutrophils 1 % (0-8) Platelet Estimate Decreased L Platelet Morphology Normal Sodium Level 139 MMOL/L (136-145) Potassium Level 3.0 MMOL/L (3.5-5.1) L Chloride Level 107 MMOL/L (98-107) Carbon Dioxide Level 24 MMOL/L (21-32) Anion Gap 8 mmol/L (5-15) Blood Urea Nitrogen 7 mg/dL (7-18) Creatinine 0.7 MG/DL (0.55-1.30) Estimat Glomerular Filtration Rate mL/min (>60) Glucose Level 128 MG/DL (74-106) H Calcium Level 7.9 MG/DL (8.5-10.1) L Vancomycin Level Trough 4.6 ug/mL (5.0-12.0) L Current Medications Medications (Trade) Dose Ordered Sig/Goldy Route PRN Reason Start Time Stop Time Status Last Admin Dose Admin Acetaminophen (Tylenol) 650 mg Q4HR PRN NG Mild Pain/Temp > 100.5 02/18/18 01:30 03/20/18 01:29 02/20/18 09:05 Acetaminophen (Tylenol) 650 mg Q6H PRN RECTAL Mild Pain/Temp > 100.5 02/17/18 17:15 03/19/18 17:14 Chlorhexidine Gluconate (Sadia-Hex 2%) 1 applic DAILY@1999 TOPIC 02/18/18 20:00 03/20/18 19:59 02/19/18 19:55 Dextrose (Dextrose 50%) 25 ml STAT PRN IV Hypoglycemia 7/6/18 17:00 03/19/18 16:59 Dextrose (Dextrose 50%) 50 ml STAT PRN IV Hypoglycemia 02/17/18 17:00 03/19/18 16:59 Diphenhydramine HCl (Benadryl) 25 mg Q6H PRN ORAL Itching/Pruritis 02/17/18 17:00 03/19/18 16:59 Insulin Aspart (NovoLOG) BEFORE MEALS AND HS SUBQ 02/17/18 21:00 03/19/18 20:59 02/20/18 11:33 Ipratropium [place] (Atrovent) 500 mcg Q4H PRN HHN Shortness of Breath 02/20/18 09:30 02/25/18 09:29 Ipratropium [place] (Atrovent) 500 mcg Q6HRT HHN 02/20/18 13:00 02/25/18 12:59 02/20/18 13:46 Lorazepam (Ativan 2mg/ml 1ml) 0.5 mg Q4H PRN IV For Anxiety 02/17/18 17:00 02/24/18 16:59 02/19/18 21:44 Ondansetron HCl (Zofran) 4 mg Q6H PRN IVP Nausea & Vomiting 02/17/18 17:00 03/19/18 16:59 Pantoprazole (Protonix) 40 mg DAILY ORAL 02/18/18 09:00 03/20/18 08:59 02/20/18 09:04 Piperacillin Sod/ Tazobactam Sod 3.375 gm/Dextrose 110 ml @ 27.5 mls/hr EVERY 8 HOURS IVPB 02/17/18 22:00 02/22/18 21:59 02/20/18 14:03 Sodium Chloride 1,000 ml @ 75 mls/hr [id number] IV 02/19/18 12:30 03/21/18 12:29 02/20/18 14:16 Vancomycin HCl (Vanco rx to dose) 1 ea DAILY PRN MISC Per rx protocol 02/17/18 21:00 03/19/18 20:59 Vancomycin HCl/ Dextrose 250 ml @ 166.667 mls/hr Q24H IVPB 02/21/18 03:00 02/26/18 02:59 Lorenzo Faustin M.D. Feb 20, 2018 17:01
[2018-02-20] MEDS ORDERED: Acetaminophen 650 MG SUPP RECTAL PRN (19:00)
[2018-02-20] MEDS ORDERED: LORazepam Inj 2mg/ml 1ml IV PRN (19:00)
[2018-02-20] MEDS: Ipratropium 0.02% Inh Soln 2.5ml UD HHN SCH (19:12)
[2018-02-21] VITALS: BP 144/82
[2018-02-21] MEDS: Ipratropium 0.02% Inh Soln 2.5ml UD HHN SCH ×4 (01:04→19:15)
[2018-02-21] MEDS: Vancomycin 1250mg/D5W 250ml 250 ML IVPB SCH (02:16)
[2018-02-21] MEDS ORDERED: Vancomycin 1250mg/D5W 250ml IVPB SCH (03:00)
[2018-02-21 04:00] VITALS: BP 138/79
[2018-02-21 04:54] LABS: HEMATOCRIT 32.9 % (37.0-47.0); HEMOGLOBIN 11.2 G/DL (12.0-16.0); MEAN CORPUSCULAR VOLUME 88 FL (80-99); PLATELET COUNT 87 K/UL (150-450); RED BLOOD COUNT 3.72 M/UL (4.20-5.40); RED CELL DISTRIBUTION WIDTH 12.2 % (11.6-14.8)
[2018-02-21 05:04] LABS: ANION GAP 5 mmol/L (5-15); BLOOD UREA NITROGEN 8 mg/dL (7-18); CARBON DIOXIDE 29 MMOL/L (21-32); CHLORIDE 104 MMOL/L (98-107); CREATININE 0.6 MG/DL (0.55-1.30); SODIUM 138 MMOL/L (136-145)
[2018-02-21] MEDS: Piperacillin/Tazobactam 3.375 GM in D5W 110 ML IVPB SCH ×2 (05:16→14:16)
[2018-02-21] MEDS: NovoLOG Insulin Flexpen SUBQ SCH ×4 (06:22→20:53)
[2018-02-21 08:00] VITALS: BP 125/67
--- NOTE | 2018-02-21 08:22 | Nephrology Progress Note ---
Assessment/Plan Assessment/Plan 1. Heat Stroke- initial body temp 107.5. - resolved 2. Hypotension- volume depleted. IVF's. Stable 3. Resp FL- extubated. Stable 4. DVT prophylaxsis 5. Hypokalemia/Mg- being replaced today IV 6. NATTY- resolved 7. Thrombocytopenia - Heme to manage. Improving 8. Sepsis/Bacteremia- ID to manage Abx - G+ cocci in clusters. Source ?? Subjective Date patient seen: Feb 21, 2018 Time patient seen: 08:19 ROS Limited/Unobtainable: Yes Allergies: Coded Allergies: NO KNOWN ALLERGIES (Verified Allergy, Unknown, 02/17/18) Uncoded Allergies: unknown (Allergy, Unknown, 02/17/18) All Systems: reviewed and negative except above Subjective Patient now extubated. Agitated and pulled out NG Objective Last 24 Hour Vital Signs Date Time Temp Pulse Resp B/P (MAP) Pulse Ox O2 Delivery O2 Flow Rate FiO2 02/21/18 08:00 Nasal Cannula 2.0 02/21/18 07:17 101 22 99 Nasal Cannula 4.0 36 02/21/18 07:07 97 Nasal Cannula 4.0 36 02/21/18 07:07 103 23 98 Nasal Cannula 4.0 36 02/21/18 07:07 Nasal Cannula 4.0 36 02/21/18 04:00 Nasal Cannula 2.0 02/21/18 04:00 123 02/21/18 04:00 98.4 90 20 138/79 (98) 98 98.4 02/21/18 01:12 99 22 99 Nasal Cannula 2.0 28 02/21/18 01:04 95 24 99 Nasal Cannula 2.0 28 02/21/18 00:00 Nasal Cannula 2.0 02/21/18 00:00 112 02/21/18 00:00 99.1 96 24 144/82 (102) 97 99.1 02/20/18 20:23 88 20 100 Nasal Cannula 2.0 28 02/20/18 20:00 84 02/20/18 20:00 Nasal Cannula 2.0 02/20/18 20:00 98.6 83 24 148/78 (101) 97 98.6 02/20/18 19:12 88 22 98 Nasal Cannula 2.0 28 02/20/18 19:12 98 Nasal Cannula 2.0 28 02/20/18 19:12 Nasal Cannula 2.0 28 02/20/18 18:00 99.2 85 20 129/70 (89) 99 99.2 02/20/18 17:00 82 22 124/67 (86) 95 02/20/18 16:00 89 02/20/18 16:00 Nasal Cannula 2.0 02/20/18 16:00 99.1 85 22 128/63 (84) 96 99.1 02/20/18 15:00 86 20 107/57 (74) 95 02/20/18 14:00 80 20 122/66 (84) 95 02/20/18 13:49 72 18 100 Nasal Cannula 2.0 28 02/20/18 13:40 71 22 98 Nasal Cannula 2.0 28 02/20/18 13:00 84 20 119/62 (81) 98 02/20/18 12:00 99.5 82 23 112/64 (80) 99 99.5 02/20/18 12:00 Nasal Cannula 2.0 02/20/18 12:00 87 02/20/18 11:00 89 24 122/69 (86) 98 02/20/18 10:00 104 18 108/71 (83) 99 02/20/18 09:35 99.7 02/20/18 09:05 99.8 02/20/18 09:00 99.8 84 15 114/69 (84) 97 99.8 Intake and Output 02/20/18 02/21/18 19:00 07:00 Intake Total 1020 ml 1767.7 ml Output Total 100 ml Balance 1020 ml 1667.7 ml Intake Free Water 15 ml 100 ml IV Total 775 ml 1182.7 ml Tube Feeding 230 ml 485 ml Stool Total 100 ml # Voids 6 Laboratory Tests 02/20/18 12:50: Vancomycin Level Trough 4.6L 02/21/18 03:54: White Blood Count 13.0H, Red Blood Count 3.72L, Hemoglobin 11.2L, Hematocrit 32.9L, Mean Corpuscular Volume 88, Mean Corpuscular Hemoglobin 30.1, Mean Corpuscular Hemoglobin Concent 34.1, Red Cell Distribution Width 12.2, Platelet Count 87#L, Mean Platelet Volume 8.0, Neutrophils (%) (Auto) , Lymphocytes (%) ( Auto) , Monocytes (%) (Auto) , Eosinophils (%) (Auto) , Basophils (%) (Auto) , Sodium Level 138, Potassium Level 3.0L, Chloride Level 104, Carbon Dioxide Level 29, Anion Gap 5, Blood Urea Nitrogen 8, Creatinine 0.6, Estimat Glomerular Filtration Rate , Glucose Level 212H, Calcium Level 8.0L Height (Feet): 5 Weight (Pounds): 159 General Appearance: no apparent distress, confused EENT: normal ENT inspection Neck: normal alignment, supple Cardiovascular: normal rate, regular rhythm Respiratory/Chest: lungs clear, normal breath sounds Abdomen: normal bowel sounds, non tender, soft Edema: no edema noted Arm (L), no edema noted Arm (R), no edema noted Leg (L), no edema noted Leg (R), no edema noted Pedal (L), no edema noted Pedal (R), no edema noted Generalized Jones Aguayo M.D. Feb 21, 2018 08:22
--- NOTE | 2018-02-21 08:45 | Pulmonology Progress Note ---
Assessment/Plan Problems: (1) Heat stroke (2) Altered level of consciousness (3) Acute respiratory failure (4) Hyperthermia (5) Lactic acid acidosis (6) NATTY (acute kidney injury) (7) Thrombocytopenia (8) NSTEMI (non-ST elevated myocardial infarction) (9) Fever Assessment/Plan * Optimize pulmonary hygiene/mobilize as tolerated * Titrate down FiO2 to keep SaO2 > 90% * RTC and PRN ATROVENT HHN's * Abx (Vanco and Zosyn) per ID, F/U repeat CX's * Monitor volumes, agree with decreased rate of IVF * Monitor CBC, F/U platelets, F/U heme recs * DVT Px: SCD * TAN[facility]ELER eval, then advance diet with STRICT aspiration precautions * FC Subjective Allergies: Coded Allergies: NO KNOWN ALLERGIES (Verified Allergy, Unknown, 02/17/18) Uncoded Allergies: unknown (Allergy, Unknown, 02/17/18) Subjective Transferred to [facility] Pulled out NGT VQ LP AFVSS, stable O2 needs No cough, no SOB CXR with PVC Objective Last 24 Hour Vital Signs Date Time Temp Pulse Resp B/P (MAP) Pulse Ox O2 Delivery O2 Flow Rate FiO2 02/21/18 08:00 Nasal Cannula 2.0 02/21/18 07:17 101 22 99 Nasal Cannula 4.0 36 02/21/18 07:07 97 Nasal Cannula 4.0 36 02/21/18 07:07 103 23 98 Nasal Cannula 4.0 36 02/21/18 07:07 Nasal Cannula 4.0 36 02/21/18 04:00 Nasal Cannula 2.0 02/21/18 04:00 123 02/21/18 04:00 98.4 90 20 138/79 (98) 98 98.4 02/21/18 01:12 99 22 99 Nasal Cannula 2.0 28 02/21/18 01:04 95 24 99 Nasal Cannula 2.0 28 02/21/18 00:00 Nasal Cannula 2.0 02/21/18 00:00 112 02/21/18 00:00 99.1 96 24 144/82 (102) 97 99.1 02/20/18 20:23 88 20 100 Nasal Cannula 2.0 28 02/20/18 20:00 84 02/20/18 20:00 Nasal Cannula 2.0 02/20/18 20:00 98.6 83 24 148/78 (101) 97 98.6 02/20/18 19:12 88 22 98 Nasal Cannula 2.0 28 02/20/18 19:12 98 Nasal Cannula 2.0 28 02/20/18 19:12 Nasal Cannula 2.0 28 02/20/18 18:00 99.2 85 20 129/70 (89) 99 99.2 02/20/18 17:00 82 22 124/67 (86) 95 02/20/18 16:00 89 02/20/18 16:00 Nasal Cannula 2.0 02/20/18 16:00 99.1 85 22 128/63 (84) 96 99.1 02/20/18 15:00 86 20 107/57 (74) 95 02/20/18 14:00 80 20 122/66 (84) 95 02/20/18 13:49 72 18 100 Nasal Cannula 2.0 28 02/20/18 13:40 71 22 98 Nasal Cannula 2.0 28 02/20/18 13:00 84 20 119/62 (81) 98 02/20/18 12:00 99.5 82 23 112/64 (80) 99 99.5 02/20/18 12:00 Nasal Cannula 2.0 02/20/18 12:00 87 02/20/18 11:00 89 24 122/69 (86) 98 02/20/18 10:00 104 18 108/71 (83) 99 02/20/18 09:35 99.7 02/20/18 09:05 99.8 02/20/18 09:00 99.8 84 15 114/69 (84) 97 99.8 Intake and Output 02/20/18 02/21/18 19:00 07:00 Intake Total 1020 ml 1767.7 ml Output Total 100 ml Balance 1020 ml 1667.7 ml Intake Free Water 15 ml 100 ml IV Total 775 ml 1182.7 ml Tube Feeding 230 ml 485 ml Stool Total 100 ml # Voids 6 General Appearance: WD/WN, no acute distress, cachetic HEENT: normocephalic, atraumatic, anicteric, mucous membranes moist Respiratory/Chest: chest wall non-tender, lungs clear, normal breath sounds, no respiratory distress, no accessory muscle use Cardiovascular: normal peripheral pulses, normal rate, regular rhythm Abdomen: normal bowel sounds, soft, non tender, no organomegaly, non distended , no mass Extremities: no cyanosis, no clubbing, no edema Microbiology Date/Time Source Procedure Growth Status 02/19/18 12:10 Blood Blood Culture - Preliminary NO GROWTH AFTER 24 HOURS Resulted 02/19/18 12:00 Blood Blood Culture - Preliminary NO GROWTH AFTER 24 HOURS Resulted Laboratory Tests 02/20/18 12:50: Vancomycin Level Trough 4.6L 02/21/18 03:54: White Blood Count 13.0H, Red Blood Count 3.72L, Hemoglobin 11.2L, Hematocrit 32.9L, Mean Corpuscular Volume 88, Mean Corpuscular Hemoglobin 30.1, Mean Corpuscular Hemoglobin Concent 34.1, Red Cell Distribution Width 12.2, Platelet Count 87#L, Mean Platelet Volume 8.0, Neutrophils (%) (Auto) , Lymphocytes (%) ( Auto) , Monocytes (%) (Auto) , Eosinophils (%) (Auto) , Basophils (%) (Auto) , Sodium Level 138, Potassium Level 3.0L, Chloride Level 104, Carbon Dioxide Level 29, Anion Gap 5, Blood Urea Nitrogen 8, Creatinine 0.6, Estimat Glomerular Filtration Rate , Glucose Level 212H, Calcium Level 8.0L, Hepatitis A IgM Antibody [Pending], Hepatitis B Surface Antigen [Pending], Hepatitis B Core IgM Antibody [Pending], Hepatitis C Antibody [Pending], HIV (1&2) Antibody Rapid [Pending] Current Medications Medications (Trade) Dose Ordered Sig/Goldy Route PRN Reason Start Time Stop Time Status Last Admin Dose Admin Acetaminophen (Tylenol) 650 mg Q4H PRN NG Mild Pain/Temp > 100.5 02/20/18 21:00 03/22/18 20:59 Acetaminophen (Tylenol) 650 mg Q6H PRN RECTAL Mild Pain/Temp > 100.5 02/20/18 19:00 03/19/18 18:59 Dextrose (Dextrose 50%) 25 ml STAT PRN IV Hypoglycemia 02/20/18 19:00 03/22/18 18:59 Dextrose (Dextrose 50%) 50 ml STAT PRN IV Hypoglycemia 02/20/18 19:00 03/22/18 18:59 Diphenhydramine HCl (Benadryl) 25 mg Q6H PRN ORAL Itching/Pruritis 02/20/18 19:00 03/19/18 18:59 Insulin Aspart (NovoLOG) BEFORE MEALS AND HS SUBQ 02/20/18 21:00 03/19/18 20:59 02/20/18 20:36 Ipratropium [place] (Atrovent) 500 mcg Q4H PRN HHN Shortness of Breath 02/20/18 19:00 02/25/18 18:59 Ipratropium [place] (Atrovent) 500 mcg Q6HRT HHN 02/20/18 19:00 02/25/18 12:59 02/21/18 07:07 Lorazepam (Ativan 2mg/ml 1ml) 0.5 mg Q4H PRN IV For Anxiety 02/20/18 19:00 02/24/18 18:59 02/21/18 02:31 Ondansetron HCl (Zofran) 4 mg Q6H PRN IVP Nausea & Vomiting 02/20/18 19:00 03/19/18 18:59 Pantoprazole (Protonix) 40 mg DAILY ORAL 02/21/18 09:00 03/20/18 08:59 Piperacillin Sod/ Tazobactam Sod 3.375 gm/Dextrose 110 ml @ 27.5 mls/hr EVERY 8 HOURS IVPB 02/20/18 22:00 02/25/18 21:59 02/21/18 05:16 Potassium Chloride 100 ml @ 100 mls/hr NOW ONCE IVPB 02/21/18 08:30 02/21/18 09:29 Sodium Chloride 1,000 ml @ 75 mls/hr [id number] IV 02/20/18 20:00 03/21/18 19:59 02/21/18 02:04 Vancomycin HCl (Vanco rx to dose) 1 ea DAILY PRN MISC Per rx protocol 02/21/18 09:00 03/19/18 20:59 Vancomycin HCl/ Dextrose 250 ml @ 166.667 mls/hr Q24H IVPB 02/21/18 03:00 02/26/18 02:59 02/21/18 02:16 Stalin García MD Feb 21, 2018 08:45
[2018-02-21 10:24] LABS: HEMATOCRIT 33.7 % (37.0-47.0); HEMOGLOBIN 11.4 G/DL (12.0-16.0); MEAN CORPUSCULAR VOLUME 88 FL (80-99); PLATELET COUNT 108 K/UL (150-450); RED BLOOD COUNT 3.84 M/UL (4.20-5.40); RED CELL DISTRIBUTION WIDTH 12.1 % (11.6-14.8); WHITE BLOOD COUNT 13.1 K/UL (4.8-10.8)
[2018-02-21 10:40] LABS: ANION GAP 4 mmol/L (5-15); BLOOD UREA NITROGEN 6 mg/dL (7-18); CALCIUM 8.7 MG/DL (8.5-10.1); CARBON DIOXIDE 29 MMOL/L (21-32); CHLORIDE 106 MMOL/L (98-107); CREATININE 0.5 MG/DL (0.55-1.30); SODIUM 139 MMOL/L (136-145)
[2018-02-21 12:00] VITALS: BP 166/90
[2018-02-21] MEDS: Acetaminophen 650mg/20.3ml NG PRN (12:43)
--- NOTE | 2018-02-21 13:48 | Diagnostic Imaging Report ---
APPROVED REPORT CPT Code: 61753 Present Symptoms Comments: BILATERAL LEGS PAIN. BILATERAL: Imaging reveals a patent deep venous system bilaterally. There is no evidence of thrombus within the femoral, popliteal or tibial segments. The greater saphenous veins are also within normal limits. Doppler indicates normal spontaneous flow within these segments.
[2018-02-21 16:00] VITALS: BP 141/78
--- NOTE | 2018-02-21 16:25 | General Progress Note ---
Assessment/Plan Status: stable Assessment/Plan 1. Thrombocytopenia secondary to underlying DIC with underlying infection. --> The patient requiring pressors at this time with altered mental status in addition to lactic acidosis. --> DIC panel pending 2. Anemia due to underlying hemodilution. --> Closely monitor for improvement --> anemia w/u has been reviewed --> Hgb goal >7 3. Elevated D-dimer likely secondary to acute shock. 4. Elevated troponin, secondary to underlying demand ischemia. --> LVEF within normal limits. 5. Respiratory failure, on a vent as well as antibiotics. 6. Altered mental status, likely secondary to shock. Subjective Date patient seen: Feb 21, 2018 Hematologic/Lymphatic: Reports: anemia Allergies: Coded Allergies: NO KNOWN ALLERGIES (Verified Allergy, Unknown, 02/17/18) Uncoded Allergies: unknown (Allergy, Unknown, 02/17/18) All Systems: reviewed and negative except above Subjective Pt transferred from ICU to [facility]. Pt pulled out NGT. CXR with PVC. Objective Last 24 Hour Vital Signs Date Time Temp Pulse Resp B/P (MAP) Pulse Ox O2 Delivery O2 Flow Rate FiO2 02/21/18 13:19 78 22 100 Nasal Cannula 3.0 32 02/21/18 13:13 99.0 02/21/18 13:07 87 18 99 Nasal Cannula 4.0 36 02/21/18 12:43 99.0 02/21/18 12:00 98.6 89 28 166/90 (115) 99 98.6 02/21/18 12:00 Nasal Cannula 2.0 02/21/18 12:00 87 02/21/18 08:00 99.0 89 22 125/67 (86) 99 99.0 02/21/18 08:00 Nasal Cannula 2.0 02/21/18 08:00 98 02/21/18 07:17 101 22 99 Nasal Cannula 4.0 36 02/21/18 07:07 97 Nasal Cannula 4.0 36 02/21/18 07:07 103 23 98 Nasal Cannula 4.0 36 02/21/18 07:07 Nasal Cannula 4.0 36 02/21/18 04:00 Nasal Cannula 2.0 02/21/18 04:00 123 02/21/18 04:00 98.4 90 20 138/79 (98) 98 98.4 02/21/18 01:12 99 22 99 Nasal Cannula 2.0 28 02/21/18 01:04 95 24 99 Nasal Cannula 2.0 28 02/21/18 00:00 Nasal Cannula 2.0 02/21/18 00:00 112 02/21/18 00:00 99.1 96 24 144/82 (102) 97 99.1 02/20/18 20:23 88 20 100 Nasal Cannula 2.0 28 02/20/18 20:00 84 02/20/18 20:00 Nasal Cannula 2.0 02/20/18 20:00 98.6 83 24 148/78 (101) 97 98.6 02/20/18 19:12 88 22 98 Nasal Cannula 2.0 28 02/20/18 19:12 98 Nasal Cannula 2.0 28 02/20/18 19:12 Nasal Cannula 2.0 28 02/20/18 18:00 99.2 85 20 129/70 (89) 99 99.2 02/20/18 17:00 82 22 124/67 (86) 95 Intake and Output 02/20/18 02/21/18 19:00 07:00 Intake Total 1020 ml 1842.7 ml Output Total 100 ml Balance 1020 ml 1742.7 ml Intake Free Water 15 ml 100 ml IV Total 775 ml 1257.7 ml Tube Feeding 230 ml 485 ml Stool Total 100 ml # Voids 6 Laboratory Tests 02/21/18 03:54: White Blood Count 13.0H, Red Blood Count 3.72L, Hemoglobin 11.2L, Hematocrit 32.9L, Mean Corpuscular Volume 88, Mean Corpuscular Hemoglobin 30.1, Mean Corpuscular Hemoglobin Concent 34.1, Red Cell Distribution Width 12.2, Platelet Count 87#L, Mean Platelet Volume 8.0, Neutrophils (%) (Auto) , Lymphocytes (%) ( Auto) , Monocytes (%) (Auto) , Eosinophils (%) (Auto) , Basophils (%) (Auto) , Sodium Level 138, Potassium Level 3.0L, Chloride Level 104, Carbon Dioxide Level 29, Anion Gap 5, Blood Urea Nitrogen 8, Creatinine 0.6, Estimat Glomerular Filtration Rate , Glucose Level 212H, Calcium Level 8.0L, Hepatitis A IgM Antibody [Pending], Hepatitis B Surface Antigen [Pending], Hepatitis B Core IgM Antibody [Pending], Hepatitis C Antibody [Pending], HIV (1&2) Antibody Rapid Negative 02/21/18 10:05: White Blood Count 13.1H, Red Blood Count 3.84L, Hemoglobin 11.4L, Hematocrit 33.7L, Mean Corpuscular Volume 88, Mean Corpuscular Hemoglobin 29.7, Mean Corpuscular Hemoglobin Concent 33.9, Red Cell Distribution Width 12.1, Platelet Count 108L, Mean Platelet Volume 7.5, Neutrophils (%) (Auto) , Lymphocytes (%) ( Auto) , Monocytes (%) (Auto) , Eosinophils (%) (Auto) , Basophils (%) (Auto) , Sodium Level 139, Potassium Level 3.0L, Chloride Level 106, Carbon Dioxide Level 29, Anion Gap 4L, Blood Urea Nitrogen 6L, Creatinine 0.5L, Estimat Glomerular Filtration Rate , Glucose Level 133H, Calcium Level 8.7, Differential Total Cells Counted 100, Neutrophils % (Manual) 86H, Lymphocytes % (Manual) 8L, Monocytes % (Manual) 6, Eosinophils % (Manual) 0, Basophils % ( Manual) 0, Band Neutrophils 0, Platelet Estimate DecreasedL, Platelet Morphology Normal, Hypochromasia 1+ Height (Feet): 5 Weight (Pounds): 159 General Appearance: no apparent distress EENT: PERRL/EOMI Neck: normal alignment Cardiovascular: normal peripheral pulses Respiratory/Chest: no respiratory distress Abdomen: normal bowel sounds Link Diez MD Feb 21, 2018 16:25
--- NOTE | 2018-02-21 16:37 | Infectious Diseases Prog Note ---
Assessment/Plan Problems: (1) Sepsis Assessment & Plan: due to staphylococcus lugdunensis with fever and leukocytosis , source suspect her knees wounds . await repeated blood culture to confirm clearance , continue vancomycin and add rifampin for synergy pending final culture results, echo ruled out valve vegetations which was done earlier. (2) Fever Assessment & Plan: heat stroke VS sepsis related, cotinue wide spectrum antibiotics, and tylenol (3) Acute respiratory failure Assessment & Plan: S/P extubation, improved, monitor CXR (4) NATTY (acute kidney injury) Assessment & Plan: due to dehydration, improved , monitor renal function (5) Heat stroke Assessment & Plan: continue cooling measures and hydration (6) Thrombocytopenia Assessment & Plan: improving, await HIT titer , avoid heparin products , hematology team is following Subjective Constitutional: Reports: no symptoms HEENT: Reports: no symptoms Respiratory: Reports: no symptoms Breasts: Reports: no symptoms Cardiovascular: Reports: no symptoms Gastrointestinal/Abdominal: Reports: no symptoms Genitourinary: Reports: no symptoms Neurologic: Reports: no symptoms Psychiatric: Reports: no symptoms Skin: Reports: no symptoms Endocrine: Reports: no symptoms Hematologic: Reports: no symptoms Musculoskeletal: Reports: no symptoms Allergies: Coded Allergies: NO KNOWN ALLERGIES (Verified Allergy, Unknown, 02/17/18) Uncoded Allergies: unknown (Allergy, Unknown, 02/17/18) Objective Vital Signs Last 24 Hour Vital Signs Date Time Temp Pulse Resp B/P (MAP) Pulse Ox O2 Delivery O2 Flow Rate FiO2 02/21/18 16:00 Nasal Cannula 2.0 02/21/18 16:00 99.9 89 22 141/78 (99) 98 99.9 02/21/18 13:19 78 22 100 Nasal Cannula 3.0 32 02/21/18 13:13 99.0 02/21/18 13:07 87 18 99 Nasal Cannula 4.0 36 02/21/18 12:43 99.0 02/21/18 12:00 98.6 89 28 166/90 (115) 99 98.6 02/21/18 12:00 Nasal Cannula 2.0 02/21/18 12:00 87 02/21/18 08:00 99.0 89 22 125/67 (86) 99 99.0 02/21/18 08:00 Nasal Cannula 2.0 02/21/18 08:00 98 02/21/18 07:17 101 22 99 Nasal Cannula 4.0 36 02/21/18 07:07 97 Nasal Cannula 4.0 36 02/21/18 07:07 103 23 98 Nasal Cannula 4.0 36 02/21/18 07:07 Nasal Cannula 4.0 36 02/21/18 04:00 Nasal Cannula 2.0 02/21/18 04:00 123 02/21/18 04:00 98.4 90 20 138/79 (98) 98 98.4 02/21/18 01:12 99 22 99 Nasal Cannula 2.0 28 02/21/18 01:04 95 24 99 Nasal Cannula 2.0 28 02/21/18 00:00 Nasal Cannula 2.0 02/21/18 00:00 112 02/21/18 00:00 99.1 96 24 144/82 (102) 97 99.1 02/20/18 20:23 88 20 100 Nasal Cannula 2.0 28 02/20/18 20:00 84 02/20/18 20:00 Nasal Cannula 2.0 02/20/18 20:00 98.6 83 24 148/78 (101) 97 98.6 02/20/18 19:12 88 22 98 Nasal Cannula 2.0 28 02/20/18 19:12 98 Nasal Cannula 2.0 28 02/20/18 19:12 Nasal Cannula 2.0 28 02/20/18 18:00 99.2 85 20 129/70 (89) 99 99.2 02/20/18 17:00 82 22 124/67 (86) 95 Height (Feet): 5 Weight (Pounds): 159 General Appearance: WD/WN, no acute distress HEENT: normocephalic, atraumatic, anicteric, mucous membranes moist Respiratory/Chest: chest wall non-tender, lungs clear, normal breath sounds, no respiratory distress, no accessory muscle use, decreased breath sounds Cardiovascular: normal peripheral pulses, normal rate, regular rhythm, no gallop/murmur, no JVD Abdomen: normal bowel sounds, soft, non tender, no organomegaly, non distended , no mass Extremities: no cyanosis, no clubbing Skin: no rash, no lesions, no ulcers Neurologic/Psychiatric: alert, oriented x 3, responsive Microbiology Date/Time Source Procedure Growth Status 02/19/18 12:10 Blood Blood Culture - Preliminary NO GROWTH AFTER 24 HOURS Resulted 02/19/18 12:00 Blood Blood Culture - Preliminary NO GROWTH AFTER 24 HOURS Resulted Laboratory Tests Test 02/21/18 03:54 02/21/18 10:05 White Blood Count 13.0 K/UL (4.8-10.8) H 13.1 K/UL (4.8-10.8) H Red Blood Count 3.72 M/UL (4.20-5.40) L 3.84 M/UL (4.20-5.40) L Hemoglobin 11.2 G/DL (12.0-16.0) L 11.4 G/DL (12.0-16.0) L Hematocrit 32.9 % (37.0-47.0) L 33.7 % (37.0-47.0) L Mean Corpuscular Volume 88 FL (80-99) 88 FL (80-99) Mean Corpuscular Hemoglobin 30.1 PG (27.0-31.0) 29.7 PG (27.0-31.0) Mean Corpuscular Hemoglobin Concent 34.1 G/DL (32.0-36.0) 33.9 G/DL (32.0-36.0) Red Cell Distribution Width 12.2 % (11.6-14.8) 12.1 % (11.6-14.8) Platelet Count 87 K/UL (150-450) #L 108 K/UL (150-450) L Mean Platelet Volume 8.0 FL (6.5-10.1) 7.5 FL (6.5-10.1) Neutrophils (%) (Auto) % (45.0-75.0) % (45.0-75.0) Lymphocytes (%) (Auto) % (20.0-45.0) % (20.0-45.0) Monocytes (%) (Auto) % (1.0-10.0) % (1.0-10.0) Eosinophils (%) (Auto) % (0.0-3.0) % (0.0-3.0) Basophils (%) (Auto) % (0.0-2.0) % (0.0-2.0) Sodium Level 138 MMOL/L (136-145) 139 MMOL/L (136-145) Potassium Level 3.0 MMOL/L (3.5-5.1) L 3.0 MMOL/L (3.5-5.1) L Chloride Level 104 MMOL/L (98-107) 106 MMOL/L (98-107) Carbon Dioxide Level 29 MMOL/L (21-32) 29 MMOL/L (21-32) Anion Gap 5 mmol/L (5-15) 4 mmol/L (5-15) L Blood Urea Nitrogen 8 mg/dL (7-18) 6 mg/dL (7-18) L Creatinine 0.6 MG/DL (0.55-1.30) 0.5 MG/DL (0.55-1.30) L Estimat Glomerular Filtration Rate mL/min (>60) mL/min (>60) Glucose Level 212 MG/DL (74-106) H 133 MG/DL (74-106) H Calcium Level 8.0 MG/DL (8.5-10.1) L 8.7 MG/DL (8.5-10.1) Hepatitis A IgM Antibody Pending Hepatitis B Surface Antigen Pending Hepatitis B Core IgM Antibody Pending Hepatitis C Antibody Pending HIV (1&2) Antibody Rapid Negative (NEGATIVE) Differential Total Cells Counted 100 Neutrophils % (Manual) 86 % (45-75) H Lymphocytes % (Manual) 8 % (20-45) L Monocytes % (Manual) 6 % (1-10) Eosinophils % (Manual) 0 % (0-3) Basophils % (Manual) 0 % (0-2) Band Neutrophils 0 % (0-8) Platelet Estimate Decreased L Platelet Morphology Normal Hypochromasia 1+ Current Medications Medications (Trade) Dose Ordered Sig/Goldy Route PRN Reason Start Time Stop Time Status Last Admin Dose Admin Acetaminophen (Tylenol) 650 mg Q4H PRN NG Mild Pain/Temp > 100.5 02/20/18 21:00 03/22/18 20:59 02/21/18 12:43 Acetaminophen (Tylenol) 650 mg Q6H PRN RECTAL Mild Pain/Temp > 100.5 02/20/18 19:00 03/19/18 18:59 Dextrose (Dextrose 50%) 25 ml STAT PRN IV Hypoglycemia 02/20/18 19:00 03/22/18 18:59 Dextrose (Dextrose 50%) 50 ml STAT PRN IV Hypoglycemia 02/20/18 19:00 03/22/18 18:59 Diphenhydramine HCl (Benadryl) 25 mg Q6H PRN ORAL Itching/Pruritis 02/20/18 19:00 03/19/18 18:59 Insulin Aspart (NovoLOG) BEFORE MEALS AND HS SUBQ 02/20/18 21:00 03/19/18 20:59 02/20/18 20:36 Ipratropium [place] (Atrovent) 500 mcg Q4H PRN HHN Shortness of Breath 02/20/18 19:00 02/25/18 18:59 Ipratropium [place] (Atrovent) 500 mcg Q6HRT HHN 02/20/18 19:00 02/25/18 12:59 02/21/18 13:09 Lorazepam (Ativan 2mg/ml 1ml) 0.5 mg Q4H PRN IV For Anxiety 02/20/18 19:00 02/24/18 18:59 02/21/18 02:31 Ondansetron HCl (Zofran) 4 mg Q6H PRN IVP Nausea & Vomiting 02/20/18 19:00 03/19/18 18:59 Pantoprazole (Protonix) 40 mg DAILY ORAL 02/21/18 09:00 03/20/18 08:59 Piperacillin Sod/ Tazobactam Sod 3.375 gm/Dextrose 110 ml @ 27.5 mls/hr EVERY 8 HOURS IVPB 02/20/18 22:00 02/25/18 21:59 02/21/18 14:16 Sodium Chloride 1,000 ml @ 75 mls/hr [id number] IV 02/20/18 20:00 03/21/18 19:59 02/21/18 02:04 Vancomycin HCl (Vanco rx to dose) 1 ea DAILY PRN MISC Per rx protocol 02/21/18 09:00 03/19/18 20:59 Vancomycin HCl/ Dextrose 250 ml @ 166.667 mls/hr Q24H IVPB 02/21/18 03:00 02/26/18 02:59 02/21/18 02:16 Lorenzo Faustin M.D. Feb 21, 2018 16:37
--- NOTE | 2018-02-21 17:04 | Cardiac Electrophysiology PN ---
Assessment/Plan Assessment/Plan 1. Elevated troponin initially was 0.9, 0.06 and 0.7. EKG showed inferolateral depression. Her echocardiogram however showed normal left ventricular systolic function with ejection fraction of 55%. ECG no acute changes. 2. Hypotension, likely due to heat stroke. Resolved 3. Heat stroke. 4. Respiratory failure, Extubated 5. Altered level of consciousness. 6. Thrombocytopenia. DW RN Subjective Subjective No CP or SOB.Transferred out of ICU Objective Last 24 Hour Vital Signs Date Time Temp Pulse Resp B/P (MAP) Pulse Ox O2 Delivery O2 Flow Rate FiO2 02/21/18 16:00 Nasal Cannula 2.0 02/21/18 16:00 99.9 89 22 141/78 (99) 98 99.9 02/21/18 13:19 78 22 100 Nasal Cannula 3.0 32 02/21/18 13:13 99.0 02/21/18 13:07 87 18 99 Nasal Cannula 4.0 36 02/21/18 12:43 99.0 02/21/18 12:00 98.6 89 28 166/90 (115) 99 98.6 02/21/18 12:00 Nasal Cannula 2.0 02/21/18 12:00 87 02/21/18 08:00 99.0 89 22 125/67 (86) 99 99.0 02/21/18 08:00 Nasal Cannula 2.0 02/21/18 08:00 98 02/21/18 07:17 101 22 99 Nasal Cannula 4.0 36 02/21/18 07:07 97 Nasal Cannula 4.0 36 02/21/18 07:07 103 23 98 Nasal Cannula 4.0 36 02/21/18 07:07 Nasal Cannula 4.0 36 02/21/18 04:00 Nasal Cannula 2.0 02/21/18 04:00 123 02/21/18 04:00 98.4 90 20 138/79 (98) 98 98.4 02/21/18 01:12 99 22 99 Nasal Cannula 2.0 28 02/21/18 01:04 95 24 99 Nasal Cannula 2.0 28 02/21/18 00:00 Nasal Cannula 2.0 02/21/18 00:00 112 02/21/18 00:00 99.1 96 24 144/82 (102) 97 99.1 02/20/18 20:23 88 20 100 Nasal Cannula 2.0 28 02/20/18 20:00 84 02/20/18 20:00 Nasal Cannula 2.0 02/20/18 20:00 98.6 83 24 148/78 (101) 97 98.6 02/20/18 19:12 88 22 98 Nasal Cannula 2.0 28 02/20/18 19:12 98 Nasal Cannula 2.0 28 02/20/18 19:12 Nasal Cannula 2.0 28 02/20/18 18:00 99.2 85 20 129/70 (89) 99 99.2 Intake and Output 02/20/18 02/21/18 19:00 07:00 Intake Total 1020 ml 1842.7 ml Output Total 100 ml Balance 1020 ml 1742.7 ml Intake Free Water 15 ml 100 ml IV Total 775 ml 1257.7 ml Tube Feeding 230 ml 485 ml Stool Total 100 ml # Voids 6 Laboratory Tests Test 02/21/18 03:54 02/21/18 10:05 White Blood Count 13.0 K/UL (4.8-10.8) H 13.1 K/UL (4.8-10.8) H Red Blood Count 3.72 M/UL (4.20-5.40) L 3.84 M/UL (4.20-5.40) L Hemoglobin 11.2 G/DL (12.0-16.0) L 11.4 G/DL (12.0-16.0) L Hematocrit 32.9 % (37.0-47.0) L 33.7 % (37.0-47.0) L Mean Corpuscular Volume 88 FL (80-99) 88 FL (80-99) Mean Corpuscular Hemoglobin 30.1 PG (27.0-31.0) 29.7 PG (27.0-31.0) Mean Corpuscular Hemoglobin Concent 34.1 G/DL (32.0-36.0) 33.9 G/DL (32.0-36.0) Red Cell Distribution Width 12.2 % (11.6-14.8) 12.1 % (11.6-14.8) Platelet Count 87 K/UL (150-450) #L 108 K/UL (150-450) L Mean Platelet Volume 8.0 FL (6.5-10.1) 7.5 FL (6.5-10.1) Neutrophils (%) (Auto) % (45.0-75.0) % (45.0-75.0) Lymphocytes (%) (Auto) % (20.0-45.0) % (20.0-45.0) Monocytes (%) (Auto) % (1.0-10.0) % (1.0-10.0) Eosinophils (%) (Auto) % (0.0-3.0) % (0.0-3.0) Basophils (%) (Auto) % (0.0-2.0) % (0.0-2.0) Sodium Level 138 MMOL/L (136-145) 139 MMOL/L (136-145) Potassium Level 3.0 MMOL/L (3.5-5.1) L 3.0 MMOL/L (3.5-5.1) L Chloride Level 104 MMOL/L (98-107) 106 MMOL/L (98-107) Carbon Dioxide Level 29 MMOL/L (21-32) 29 MMOL/L (21-32) Anion Gap 5 mmol/L (5-15) 4 mmol/L (5-15) L Blood Urea Nitrogen 8 mg/dL (7-18) 6 mg/dL (7-18) L Creatinine 0.6 MG/DL (0.55-1.30) 0.5 MG/DL (0.55-1.30) L Estimat Glomerular Filtration Rate mL/min (>60) mL/min (>60) Glucose Level 212 MG/DL (74-106) H 133 MG/DL (74-106) H Calcium Level 8.0 MG/DL (8.5-10.1) L 8.7 MG/DL (8.5-10.1) Hepatitis A IgM Antibody Pending Hepatitis B Surface Antigen Pending Hepatitis B Core IgM Antibody Pending Hepatitis C Antibody Pending HIV (1&2) Antibody Rapid Negative (NEGATIVE) Differential Total Cells Counted 100 Neutrophils % (Manual) 86 % (45-75) H Lymphocytes % (Manual) 8 % (20-45) L Monocytes % (Manual) 6 % (1-10) Eosinophils % (Manual) 0 % (0-3) Basophils % (Manual) 0 % (0-2) Band Neutrophils 0 % (0-8) Platelet Estimate Decreased L Platelet Morphology Normal Hypochromasia 1+ Microbiology Date/Time Source Procedure Growth Status 02/19/18 12:10 Blood Blood Culture - Preliminary NO GROWTH AFTER 24 HOURS Resulted 02/19/18 12:00 Blood Blood Culture - Preliminary NO GROWTH AFTER 24 HOURS Resulted Objective HEAD AND NECK: No JVD. LUNGS: Clear. CARDIOVASCULAR: Regular S1 and S2 with no gallop or murmur. ABDOMEN: Soft. EXTREMITIES: No pitting edema. Raghavendra Morel MD Feb 21, 2018 17:03
[2018-02-21 20:00] VITALS: BP 140/82
[2018-02-22] VITALS: BP 170/98
[2018-02-22] MEDS: Acetaminophen 650mg/20.3ml NG PRN ×2 (01:06→06:05)
[2018-02-22] MEDS: Ipratropium 0.02% Inh Soln 2.5ml UD HHN SCH ×4 (02:11→19:21)
[2018-02-22] MEDS: Vancomycin 1250mg/D5W 250ml 250 ML IVPB SCH (02:57)
[2018-02-22 04:00] VITALS: BP 114/64
[2018-02-22] MEDS: NovoLOG Insulin Flexpen SUBQ SCH ×4 (06:17→21:25)
[2018-02-22 07:32] LABS: ANION GAP 5 mmol/L (5-15); BLOOD UREA NITROGEN 8 mg/dL (7-18); CALCIUM 8.7 MG/DL (8.5-10.1); CARBON DIOXIDE 30 MMOL/L (21-32); CHLORIDE 107 MMOL/L (98-107); SODIUM 142 MMOL/L (136-145)
[2018-02-22 07:42] LABS: ALANINE AMINOTRANSFERASE 109 U/L (12-78); ALBUMIN 3.1 G/DL (3.4-5.0); ALBUMIN/GLOBULIN RATIO 0.8 (1.0-2.7); ALKALINE PHOSPHATASE 69 U/L (46-116); ASPARTATE AMINO TRANSFERASE 44 U/L (15-37); BILIRUBIN,TOTAL 1.7 MG/DL (0.2-1.0); PHOSPHORUS 2.1 MG/DL (2.5-4.9)
[2018-02-22 07:43] LABS: BILIRUBIN,DIRECT 0.7 MG/DL (0.0-0.3)
[2018-02-22 08:00] VITALS: BP 122/78
[2018-02-22] MEDS ORDERED: Potassium Phosphate 30 MM in NS 275 ML IV ONE (10:30)
[2018-02-22 12:00] VITALS: BP 123/66
--- NOTE | 2018-02-22 12:15 | Consultation ---
History of Present Illness General Date patient seen: Feb 20, 2018 Chief Complaint: Altered Level of Consciousness Present Illness HPI 78-year-old female who was brought into the emergency room for acute encephalopathy. the pt was unconscious and was unable to provide hx the pt pw waxing and waning of consciousness. episodes of agitation. the pt has cognitive impairment. Allergies: Coded Allergies: NO KNOWN ALLERGIES (Verified Allergy, Unknown, 02/17/18) Uncoded Allergies: unknown (Allergy, Unknown, 02/17/18) Patient History Limited by: medical condition History Provided By: Patient, Medical Record, PMD Healthcare decision maker Resuscitation status Full Code Advanced Directive on File No Past Medical/Surgical History Past Medical/Surgical History: (1) Heat stroke (2) Altered level of consciousness (3) Acute respiratory failure (4) Hyperthermia (5) Lactic acid acidosis (6) NATTY (acute kidney injury) (7) Thrombocytopenia (8) NSTEMI (non-ST elevated myocardial infarction) (9) Fever (10) Sepsis (11) Staphylococcal sepsis Review of Systems Psychiatric: Reports: prior hx, anxiety Physical Exam General Appearance: lethargic, confused, agitated Last 24 Hour Vital Signs Date Time Temp Pulse Resp B/P (MAP) Pulse Ox O2 Delivery O2 Flow Rate FiO2 02/22/18 12:00 99.1 81 18 123/66 (85) 98 99.1 02/22/18 11:49 72 02/22/18 08:00 Nasal Cannula 2.0 02/22/18 08:00 98.4 94 18 122/78 (93) 97 98.4 02/22/18 08:00 83 02/22/18 07:18 61 20 99 Nasal Cannula 3.0 32 02/22/18 07:10 Nasal Cannula 3.0 32 02/22/18 07:10 99 Nasal Cannula 3.0 32 02/22/18 07:10 61 18 99 Nasal Cannula 3.0 32 02/22/18 04:00 98.1 67 16 114/64 (81) 99 98.1 02/22/18 04:00 Nasal Cannula 2.0 02/22/18 02:00 76 20 99 Nasal Cannula 3.0 32 02/22/18 02:00 72 18 98 Nasal Cannula 3.0 32 02/22/18 00:00 Nasal Cannula 2.0 02/22/18 00:00 99.4 91 20 170/98 (122) 99 99.4 02/21/18 20:00 86 02/21/18 20:00 98.3 79 20 140/82 (101) 98 98.3 02/21/18 19:33 Nasal Cannula 2.0 02/21/18 19:17 88 20 100 Nasal Cannula 3.0 32 02/21/18 19:16 Nasal Cannula 3.0 32 02/21/18 19:16 86 18 99 Nasal Cannula 3.0 32 02/21/18 19:15 100 Nasal Cannula 3.0 32 02/21/18 16:00 91 02/21/18 16:00 Nasal Cannula 2.0 02/21/18 16:00 99.9 89 22 141/78 (99) 98 99.9 02/21/18 13:19 78 22 100 Nasal Cannula 3.0 32 02/21/18 13:13 99.0 02/21/18 13:07 87 18 99 Nasal Cannula 4.0 36 02/21/18 12:43 99.0 Intake and Output 02/21/18 02/22/18 19:00 07:00 Intake Total 750 ml 1150.000 ml Output Total 40 ml Balance 710 ml 1150.000 ml IV Total 750 ml 1150.000 ml Stool Total 40 ml Laboratory Tests Test 02/22/18 06:45 Sodium Level 142 MMOL/L (136-145) Potassium Level 3.0 MMOL/L (3.5-5.1) L Chloride Level 107 MMOL/L (98-107) Carbon Dioxide Level 30 MMOL/L (21-32) Anion Gap 5 mmol/L (5-15) Blood Urea Nitrogen 8 mg/dL (-18) Creatinine 1.0 MG/DL (0.55-1.30) # Estimat Glomerular Filtration Rate mL/min (>60) Glucose Level 158 MG/DL (74-106) H Calcium Level 8.7 MG/DL (8.5-10.1) Phosphorus Level 2.1 MG/DL (2.5-4.9) L Magnesium Level 2.1 MG/DL (1.8-2.4) Total Bilirubin 1.7 MG/DL (0.2-1.0) H Direct Bilirubin 0.7 MG/DL (0.0-0.3) H Aspartate Amino Transf (AST/SGOT) 44 U/L (15-37) H Alanine Aminotransferase (ALT/SGPT) 109 U/L (12-78) H Alkaline Phosphatase 69 U/L (46-116) Total Protein 6.8 G/DL (6.4-8.2) Albumin 3.1 G/DL (3.4-5.0) L Globulin 3.7 g/dL Albumin/Globulin Ratio 0.8 (1.0-2.7) L Height (Feet): 5 Weight (Pounds): 147 Medications Current Medications Medications (Trade) Dose Ordered Sig/Goldy Route PRN Reason Start Time Stop Time Status Last Admin Dose Admin Acetaminophen (Tylenol) 650 mg Q4H PRN NG Mild Pain/Temp > 100.5 02/20/18 21:00 03/22/18 20:59 02/22/18 06:05 Acetaminophen (Tylenol) 650 mg Q6H PRN RECTAL Mild Pain/Temp > 100.5 02/20/18 19:00 03/19/18 18:59 Dextrose (Dextrose 50%) 25 ml STAT PRN IV Hypoglycemia 02/20/18 19:00 03/22/18 18:59 Dextrose (Dextrose 50%) 50 ml STAT PRN IV Hypoglycemia 02/20/18 19:00 03/22/18 18:59 Diphenhydramine HCl (Benadryl) 25 mg Q6H PRN ORAL Itching/Pruritis 02/20/18 19:00 03/19/18 18:59 02/21/18 22:53 Insulin Aspart (NovoLOG) BEFORE MEALS AND HS SUBQ 02/20/18 21:00 03/19/18 20:59 02/22/18 11:08 Ipratropium [place] (Atrovent) 500 mcg Q4H PRN HHN Shortness of Breath 02/20/18 19:00 02/25/18 18:59 Ipratropium [place] (Atrovent) 500 mcg Q6HRT HHN 02/20/18 19:00 02/25/18 12:59 02/22/18 07:10 Lorazepam (Ativan 2mg/ml 1ml) 0.5 mg Q4H PRN IV For Anxiety 02/20/18 19:00 02/24/18 18:59 02/21/18 02:31 Ondansetron HCl (Zofran) 4 mg Q6H PRN IVP Nausea & Vomiting 02/20/18 19:00 03/19/18 18:59 Pantoprazole (Protonix) 40 mg DAILY ORAL 02/21/18 09:00 03/20/18 08:59 02/22/18 09:16 Potassium Phosphate 30 mm/ Sodium Chloride 285 ml @ 47.5 mls/hr ONCE ONCE IV 02/22/18 10:30 02/22/18 16:29 02/22/18 11:07 Rifampin (Rifadin) 300 mg EVERY 12 HOURS ORAL 02/21/18 21:00 03/23/18 20:59 02/22/18 09:16 Sodium Chloride 1,000 ml @ 75 mls/hr [id number] IV 02/20/18 20:00 03/21/18 19:59 02/22/18 09:20 Vancomycin HCl (Vanco rx to dose) 1 ea DAILY PRN MISC Per rx protocol 02/21/18 09:00 03/19/18 20:59 Vancomycin HCl/ Dextrose 250 ml @ 166.667 mls/hr Q24H IVPB 02/21/18 03:00 02/26/18 02:59 02/22/18 02:57 Assessment/Plan Assessment/Plan encephalopathy due to [facility] -rec to dc ativan prn -seroquel Andree Foster MD Feb 22, 2018 12:15
--- NOTE | 2018-02-22 12:16 | General Progress Note ---
Assessment/Plan Status: stable, progressing Assessment[place]Plan [place] [facility] [place] Subjective Date patient seen: Feb 22, 2018 Neurologic/Psychiatric: Reports: anxiety, emotional problems Allergies: Coded Allergies: NO KNOWN ALLERGIES (Verified Allergy, Unknown, 02/17/18) Uncoded Allergies: unknown (Allergy, Unknown, 02/17/18) Objective Last 24 Hour Vital Signs Date Time Temp Pulse Resp B/P (MAP) Pulse Ox O2 Delivery O2 Flow Rate FiO2 02/22/18 12:00 99.1 81 18 123/66 (85) 98 99.1 02/22/18 11:49 72 02/22/18 08:00 Nasal Cannula 2.0 02/22/18 08:00 98.4 94 18 122/78 (93) 97 98.4 02/22/18 08:00 83 02/22/18 07:18 61 20 99 Nasal Cannula 3.0 32 02/22/18 07:10 Nasal Cannula 3.0 32 02/22/18 07:10 99 Nasal Cannula 3.0 32 02/22/18 07:10 61 18 99 Nasal Cannula 3.0 32 02/22/18 04:00 98.1 67 16 114/64 (81) 99 98.1 02/22/18 04:00 Nasal Cannula 2.0 02/22/18 02:00 76 20 99 Nasal Cannula 3.0 32 02/22/18 02:00 72 18 98 Nasal Cannula 3.0 32 02/22/18 00:00 Nasal Cannula 2.0 02/22/18 00:00 99.4 91 20 170/98 (122) 99 99.4 02/21/18 20:00 86 02/21/18 20:00 98.3 79 20 140/82 (101) 98 98.3 02/21/18 19:33 Nasal Cannula 2.0 02/21/18 19:17 88 20 100 Nasal Cannula 3.0 32 02/21/18 19:16 Nasal Cannula 3.0 32 02/21/18 19:16 86 18 99 Nasal Cannula 3.0 32 02/21/18 19:15 100 Nasal Cannula 3.0 32 02/21/18 16:00 91 02/21/18 16:00 Nasal Cannula 2.0 02/21/18 16:00 99.9 89 22 141/78 (99) 98 99.9 02/21/18 13:19 78 22 100 Nasal Cannula 3.0 32 02/21/18 13:13 99.0 02/21/18 13:07 87 18 99 Nasal Cannula 4.0 36 02/21/18 12:43 99.0 Intake and Output 02/21/18 02/22/18 19:00 07:00 Intake Total 750 ml 1150.000 ml Output Total 40 ml Balance 710 ml 1150.000 ml IV Total 750 ml 1150.000 ml Stool Total 40 ml Laboratory Tests 02/22/18 06:45: Sodium Level 142, Potassium Level 3.0L, Chloride Level 107, Carbon Dioxide Level 30, Anion Gap 5, Blood Urea Nitrogen 8, Creatinine 1.0#, Estimat Glomerular Filtration Rate , Glucose Level 158H, Calcium Level 8.7, Phosphorus Level 2.1L, Magnesium Level 2.1, Total Bilirubin 1.7H, Direct Bilirubin 0.7H, Aspartate Amino Transf (AST/SGOT) 44H, Alanine Aminotransferase (ALT/SGPT) 109H , Alkaline Phosphatase 69, Total Protein 6.8, Albumin 3.1L, Globulin 3.7, Albumin/Globulin Ratio 0.8L Height (Feet): 5 Weight (Pounds): 147 General Appearance: no apparent distress, alert, agitated - anxious at times not agitated] Neurologic: alert, depressed affect Andree Conner MD Feb 22, 2018 12:16
--- NOTE | 2018-02-22 15:24 | General Progress Note ---
Assessment/Plan Status: unchanged Assessment/Plan 1. Thrombocytopenia secondary to underlying DIC with underlying infection. --> The patient requiring pressors at this time with altered mental status in addition to lactic acidosis. --> DIC panel pending 2. Anemia due to underlying hemodilution. --> Closely monitor for improvement --> anemia w/u has been reviewed --> Hgb goal >7 3. Elevated D-dimer likely secondary to acute shock. 4. Elevated troponin, secondary to underlying demand ischemia. --> LVEF within normal limits. 5. Respiratory failure, on a vent as well as antibiotics. 6. Altered mental status, likely secondary to shock. Subjective Date patient seen: Feb 22, 2018 Hematologic/Lymphatic: Reports: anemia Allergies: Coded Allergies: NO KNOWN ALLERGIES (Verified Allergy, Unknown, 02/17/18) Uncoded Allergies: unknown (Allergy, Unknown, 02/17/18) All Systems: reviewed and negative except above Subjective No acute events. Vitals are stable. Objective Last 24 Hour Vital Signs Date Time Temp Pulse Resp B/P (MAP) Pulse Ox O2 Delivery O2 Flow Rate FiO2 02/22/18 13:05 69 18 99 Nasal Cannula 2.0 28 02/22/18 12:58 64 18 99 Nasal Cannula 3.0 32 02/22/18 12:00 Nasal Cannula 2.0 02/22/18 12:00 99.1 81 18 123/66 (85) 98 99.1 02/22/18 11:49 72 02/22/18 08:00 Nasal Cannula 2.0 02/22/18 08:00 98.4 94 18 122/78 (93) 97 98.4 02/22/18 08:00 83 02/22/18 07:18 61 20 99 Nasal Cannula 3.0 32 02/22/18 07:10 Nasal Cannula 3.0 32 02/22/18 07:10 99 Nasal Cannula 3.0 32 02/22/18 07:10 61 18 99 Nasal Cannula 3.0 32 02/22/18 04:00 98.1 67 16 114/64 (81) 99 98.1 02/22/18 04:00 Nasal Cannula 2.0 02/22/18 02:00 76 20 99 Nasal Cannula 3.0 32 02/22/18 02:00 72 18 98 Nasal Cannula 3.0 32 02/22/18 00:00 Nasal Cannula 2.0 02/22/18 00:00 99.4 91 20 170/98 (122) 99 99.4 02/21/18 20:00 86 02/21/18 20:00 98.3 79 20 140/82 (101) 98 98.3 02/21/18 19:33 Nasal Cannula 2.0 02/21/18 19:17 88 20 100 Nasal Cannula 3.0 32 02/21/18 19:16 Nasal Cannula 3.0 32 02/21/18 19:16 86 18 99 Nasal Cannula 3.0 32 02/21/18 19:15 100 Nasal Cannula 3.0 32 02/21/18 16:00 91 02/21/18 16:00 Nasal Cannula 2.0 02/21/18 16:00 99.9 89 22 141/78 (99) 98 99.9 Intake and Output 02/21/18 02/22/18 19:00 07:00 Intake Total 750 ml 1150.000 ml Output Total 40 ml Balance 710 ml 1150.000 ml IV Total 750 ml 1150.000 ml Stool Total 40 ml Laboratory Tests 02/22/18 06:45: Sodium Level 142, Potassium Level 3.0L, Chloride Level 107, Carbon Dioxide Level 30, Anion Gap 5, Blood Urea Nitrogen 8, Creatinine 1.0#, Estimat Glomerular Filtration Rate , Glucose Level 158H, Calcium Level 8.7, Phosphorus Level 2.1L, Magnesium Level 2.1, Total Bilirubin 1.7H, Direct Bilirubin 0.7H, Aspartate Amino Transf (AST/SGOT) 44H, Alanine Aminotransferase (ALT/SGPT) 109H , Alkaline Phosphatase 69, Total Protein 6.8, Albumin 3.1L, Globulin 3.7, Albumin/Globulin Ratio 0.8L Height (Feet): 5 Weight (Pounds): 147 General Appearance: no apparent distress EENT: PERRL/EOMI Neck: normal alignment Cardiovascular: normal peripheral pulses Respiratory/Chest: no respiratory distress Abdomen: soft Link Diez MD Feb 22, 2018 15:24
[2018-02-22 15:54] VITALS: BP 134/77
--- NOTE | 2018-02-22 15:57 | Cardiology Progress Note ---
Assessment/Plan Status: stable Assessment/Plan Assessment/Plan 1. Elevated troponin initially was 0.9, 0.06 and 0.7. EKG showed inferolateral depression. Her echocardiogram however showed normal left ventricular systolic function with ejection fraction of 55%. ECG no acute changes. Outpatient ischemia evaluation if stable, no indication for cath 2. Hypotension, likely due to heat stroke. Resolved 3. Heat stroke. 4. Respiratory failure, Extubated 5. Altered level of consciousness. 6. Thrombocytopenia. Subjective Cardiovascular: Reports: no symptoms Respiratory: Reports: no symptoms Gastrointestinal/Abdominal: Reports: no symptoms Genitourinary: Reports: no symptoms Subjective No acute events, Out of ICU Objective Last 24 Hour Vital Signs Date Time Temp Pulse Resp B/P (MAP) Pulse Ox O2 Delivery O2 Flow Rate FiO2 02/22/18 15:54 99.4 89 16 134/77 (96) 98 99.4 02/22/18 13:05 69 18 99 Nasal Cannula 2.0 28 02/22/18 12:58 64 18 99 Nasal Cannula 3.0 32 02/22/18 12:00 Nasal Cannula 2.0 02/22/18 12:00 99.1 81 18 123/66 (85) 98 99.1 02/22/18 11:49 72 02/22/18 08:00 Nasal Cannula 2.0 02/22/18 08:00 98.4 94 18 122/78 (93) 97 98.4 02/22/18 08:00 83 02/22/18 07:18 61 20 99 Nasal Cannula 3.0 32 02/22/18 07:10 Nasal Cannula 3.0 32 02/22/18 07:10 99 Nasal Cannula 3.0 32 02/22/18 07:10 61 18 99 Nasal Cannula 3.0 32 02/22/18 04:00 98.1 67 16 114/64 (81) 99 98.1 02/22/18 04:00 Nasal Cannula 2.0 02/22/18 02:00 76 20 99 Nasal Cannula 3.0 32 02/22/18 02:00 72 18 98 Nasal Cannula 3.0 32 02/22/18 00:00 Nasal Cannula 2.0 02/22/18 00:00 99.4 91 20 170/98 (122) 99 99.4 02/21/18 20:00 86 02/21/18 20:00 98.3 79 20 140/82 (101) 98 98.3 02/21/18 19:33 Nasal Cannula 2.0 02/21/18 19:17 88 20 100 Nasal Cannula 3.0 32 02/21/18 19:16 Nasal Cannula 3.0 32 02/21/18 19:16 86 18 99 Nasal Cannula 3.0 32 02/21/18 19:15 100 Nasal Cannula 3.0 32 02/21/18 16:00 91 02/21/18 16:00 Nasal Cannula 2.0 02/21/18 16:00 99.9 89 22 141/78 (99) 98 99.9 General Appearance: no apparent distress EENT: PERRL/EOMI Neck: non-tender Rhythm: NSR Cardiovascular: normal peripheral pulses Respiratory/Chest: chest wall non-tender Abdomen: normal bowel sounds Extremities: normal range of motion Neurologic: no pronator, abnormal CN, motor weakness Intake and Output 02/21/18 02/22/18 19:00 07:00 Intake Total 750 ml 1150.000 ml Output Total 40 ml Balance 710 ml 1150.000 ml IV Total 750 ml 1150.000 ml Stool Total 40 ml Laboratory Tests Test 02/22/18 06:45 Sodium Level 142 MMOL/L (136-145) Potassium Level 3.0 MMOL/L (3.5-5.1) L Chloride Level 107 MMOL/L (98-107) Carbon Dioxide Level 30 MMOL/L (21-32) Anion Gap 5 mmol/L (5-15) Blood Urea Nitrogen 8 mg/dL (7-18) Creatinine 1.0 MG/DL (0.55-1.30) # Estimat Glomerular Filtration Rate mL/min (>60) Glucose Level 158 MG/DL (74-106) H Calcium Level 8.7 MG/DL (8.5-10.1) Phosphorus Level 2.1 MG/DL (2.5-4.9) L Magnesium Level 2.1 MG/DL (1.8-2.4) Total Bilirubin 1.7 MG/DL (0.2-1.0) H Direct Bilirubin 0.7 MG/DL (0.0-0.3) H Aspartate Amino Transf (AST/SGOT) 44 U/L (15-37) H Alanine Aminotransferase (ALT/SGPT) 109 U/L (12-78) H Alkaline Phosphatase 69 U/L (46-116) Total Protein 6.8 G/DL (6.4-8.2) Albumin 3.1 G/DL (3.4-5.0) L Globulin 3.7 g/dL Albumin/Globulin Ratio 0.8 (1.0-2.7) L Microbiology Date/Time Source Procedure Growth Status 02/20/18 15:30 Blood Blood Culture - Preliminary NO GROWTH AFTER 24 HOURS Resulted 02/20/18 15:30 Blood Blood Culture - Preliminary NO GROWTH AFTER 24 HOURS Resulted Iglesia Mason M.D. Feb 22, 2018 15:57
[2018-02-22] MEDS ORDERED: Tubing IV Secondary IV ONE ×2 (16:51→17:33)
[2018-02-22] MEDS ORDERED: NS Irrig 1000ml ONE (16:51)
[2018-02-22] MEDS ORDERED: NS 275ml ONE (17:33)
--- NOTE | 2018-02-22 18:12 | Infectious Diseases Prog Note ---
Assessment/Plan Problems: (1) Sepsis Assessment & Plan: due to staphylococcus lugdunensis with fever and leukocytosis , source suspect her knees wounds . repeated blood culture so far is negative , continue vancomycin and rifampin for two weeks , echo ruled out valve vegetations which was done earlier. (2) Fever Assessment & Plan: heat stroke VS sepsis related, continue antibiotics, and tylenol (3) Acute respiratory failure Assessment & Plan: S/P extubation, improved, monitor CXR (4) NATTY (acute kidney injury) Assessment & Plan: due to dehydration, improved , monitor renal function (5) Heat stroke Assessment & Plan: improving , continue hydration (6) Thrombocytopenia Assessment & Plan: improving, HIT titer is negative , avoid heparin products , hematology team is following Subjective Constitutional: Reports: no symptoms HEENT: Reports: no symptoms Respiratory: Reports: dry cough Breasts: Reports: no symptoms Cardiovascular: Reports: no symptoms Gastrointestinal/Abdominal: Reports: no symptoms Genitourinary: Reports: no symptoms Neurologic: Reports: no symptoms Psychiatric: Reports: no symptoms Skin: Reports: no symptoms Endocrine: Reports: no symptoms Hematologic: Reports: no symptoms Musculoskeletal: Reports: pain Allergies: Coded Allergies: NO KNOWN ALLERGIES (Verified Allergy, Unknown, 02/17/18) Uncoded Allergies: unknown (Allergy, Unknown, 02/17/18) Objective Vital Signs Last 24 Hour Vital Signs Date Time Temp Pulse Resp B/P (MAP) Pulse Ox O2 Delivery O2 Flow Rate FiO2 02/22/18 16:00 Nasal Cannula 2.0 02/22/18 16:00 85 02/22/18 15:54 99.4 89 16 134/77 (96) 98 99.4 02/22/18 13:05 69 18 99 Nasal Cannula 2.0 28 02/22/18 12:58 64 18 99 Nasal Cannula 3.0 32 02/22/18 12:00 Nasal Cannula 2.0 02/22/18 12:00 99.1 81 18 123/66 (85) 98 99.1 02/22/18 11:49 72 02/22/18 08:00 Nasal Cannula 2.0 02/22/18 08:00 98.4 94 18 122/78 (93) 97 98.4 02/22/18 08:00 83 02/22/18 07:18 61 20 99 Nasal Cannula 3.0 32 02/22/18 07:10 Nasal Cannula 3.0 32 02/22/18 07:10 99 Nasal Cannula 3.0 32 02/22/18 07:10 61 18 99 Nasal Cannula 3.0 32 02/22/18 04:00 98.1 67 16 114/64 (81) 99 98.1 02/22/18 04:00 Nasal Cannula 2.0 02/22/18 02:00 76 20 99 Nasal Cannula 3.0 32 02/22/18 02:00 72 18 98 Nasal Cannula 3.0 32 02/22/18 00:00 Nasal Cannula 2.0 02/22/18 00:00 99.4 91 20 170/98 (122) 99 99.4 02/21/18 20:00 86 02/21/18 20:00 98.3 79 20 140/82 (101) 98 98.3 02/21/18 19:33 Nasal Cannula 2.0 02/21/18 19:17 88 20 100 Nasal Cannula 3.0 32 02/21/18 19:16 Nasal Cannula 3.0 32 02/21/18 19:16 86 18 99 Nasal Cannula 3.0 32 02/21/18 19:15 100 Nasal Cannula 3.0 32 Height (Feet): 5 Weight (Pounds): 147 General Appearance: WD/WN, no acute distress HEENT: normocephalic, atraumatic, anicteric, mucous membranes moist, PERRL Respiratory/Chest: chest wall non-tender, no respiratory distress, no accessory muscle use, decreased breath sounds, crackles/rales Cardiovascular: normal peripheral pulses, normal rate, regular rhythm, no gallop/murmur, no JVD Abdomen: normal bowel sounds, soft, non tender, no organomegaly, non distended , no mass Extremities: no cyanosis, no clubbing Skin: no rash, no lesions, other - skin avulsion on both knees Neurologic/Psychiatric: alert, oriented x 3, responsive Microbiology Date/Time Source Procedure Growth Status 02/20/18 15:30 Blood Blood Culture - Preliminary NO GROWTH AFTER 24 HOURS Resulted 02/20/18 15:30 Blood Blood Culture - Preliminary NO GROWTH AFTER 24 HOURS Resulted Laboratory Tests Test 02/22/18 06:45 Sodium Level 142 MMOL/L (136-145) Potassium Level 3.0 MMOL/L (3.5-5.1) L Chloride Level 107 MMOL/L (98-107) Carbon Dioxide Level 30 MMOL/L (21-32) Anion Gap 5 mmol/L (5-15) Blood Urea Nitrogen 8 mg/dL (7-18) Creatinine 1.0 MG/DL (0.55-1.30) # Estimat Glomerular Filtration Rate mL/min (>60) Glucose Level 158 MG/DL (74-106) H Calcium Level 8.7 MG/DL (8.5-10.1) Phosphorus Level 2.1 MG/DL (2.5-4.9) L Magnesium Level 2.1 MG/DL (1.8-2.4) Total Bilirubin 1.7 MG/DL (0.2-1.0) H Direct Bilirubin 0.7 MG/DL (0.0-0.3) H Aspartate Amino Transf (AST/SGOT) 44 U/L (15-37) H Alanine Aminotransferase (ALT/SGPT) 109 U/L (12-78) H Alkaline Phosphatase 69 U/L (46-116) Total Protein 6.8 G/DL (6.4-8.2) Albumin 3.1 G/DL (3.4-5.0) L Globulin 3.7 g/dL Albumin/Globulin Ratio 0.8 (1.0-2.7) L Current Medications Medications (Trade) Dose Ordered Sig/Goldy Route PRN Reason Start Time Stop Time Status Last Admin Dose Admin Acetaminophen (Tylenol) 650 mg Q4H PRN NG Mild Pain/Temp > 100.5 02/20/18 21:00 03/22/18 20:59 02/22/18 06:05 Acetaminophen (Tylenol) 650 mg Q6H PRN RECTAL Mild Pain/Temp > 100.5 02/20/18 19:00 03/19/18 18:59 Dextrose (Dextrose 50%) 25 ml STAT PRN IV Hypoglycemia 02/20/18 19:00 03/22/18 18:59 Dextrose (Dextrose 50%) 50 ml STAT PRN IV Hypoglycemia 02/20/18 19:00 03/22/18 18:59 Diphenhydramine HCl (Benadryl) 25 mg Q6H PRN ORAL Itching/Pruritis 02/20/18 19:00 03/19/18 18:59 02/21/18 22:53 Insulin Aspart (NovoLOG) BEFORE MEALS AND HS SUBQ 02/20/18 21:00 03/19/18 20:59 02/22/18 16:43 Ipratropium [place] (Atrovent) 500 mcg Q4H PRN HHN Shortness of Breath 02/20/18 19:00 02/25/18 18:59 Ipratropium [place] (Atrovent) 500 mcg Q6HRT HHN 02/20/18 19:00 02/25/18 12:59 02/22/18 12:58 Ondansetron HCl (Zofran) 4 mg Q6H PRN IVP Nausea & Vomiting 02/20/18 19:00 03/19/18 18:59 Pantoprazole (Protonix) 40 mg DAILY ORAL 02/21/18 09:00 03/20/18 08:59 02/22/18 09:16 Quetiapine Fumarate (SEROquel) 12.5 mg Q4H PRN ORAL anxiety 02/22/18 12:15 03/24/18 12:14 Rifampin (Rifadin) 300 mg EVERY 12 HOURS ORAL 02/21/18 21:00 03/23/18 20:59 02/22/18 09:16 Sodium Chloride 1,000 ml @ 75 mls/hr [id number] IV 02/20/18 20:00 03/21/18 19:59 02/22/18 09:20 Vancomycin HCl (Vanco rx to dose) 1 ea DAILY PRN MISC Per rx protocol 02/21/18 09:00 03/19/18 20:59 Vancomycin HCl/ Dextrose 250 ml @ 166.667 mls/hr Q24H IVPB 02/21/18 03:00 02/26/18 02:59 02/22/18 02:57 Lorenzo Faustin M.D. Feb 22, 2018 18:12
--- NOTE | 2018-02-22 19:08 | Pulmonology Progress Note ---
Assessment/Plan Problems: (1) Heat stroke (2) Altered level of consciousness (3) Acute respiratory failure (4) Hyperthermia (5) Lactic acid acidosis (6) NATTY (acute kidney injury) (7) Thrombocytopenia (8) NSTEMI (non-ST elevated myocardial infarction) (9) Fever Assessment/Plan * Optimize pulmonary hygiene/mobilize as tolerated * Titrate down FiO2 to keep SaO2 > 90% * RTC and PRN ATROVENT HHN's * Abx per ID, F/U repeat CX's * Monitor volumes * Monitor CBC, F/U platelets, F/U heme recs * DVT Px: SCD * Diet per [employer] with STRICT aspiration precautions, VSS ordered * FC Subjective Allergies: Coded Allergies: NO KNOWN ALLERGIES (Verified Allergy, Unknown, 02/17/18) Uncoded Allergies: unknown (Allergy, Unknown, 02/17/18) Subjective Started on PO diet AFVSS, stable O2 needs No cough, no SOB, no F/C Objective Last 24 Hour Vital Signs Date Time Temp Pulse Resp B/P (MAP) Pulse Ox O2 Delivery O2 Flow Rate FiO2 02/22/18 16:00 Nasal Cannula 2.0 02/22/18 16:00 85 02/22/18 15:54 99.4 89 16 134/77 (96) 98 99.4 02/22/18 13:05 69 18 99 Nasal Cannula 2.0 28 02/22/18 12:58 64 18 99 Nasal Cannula 3.0 32 02/22/18 12:00 Nasal Cannula 2.0 02/22/18 12:00 99.1 81 18 123/66 (85) 98 99.1 02/22/18 11:49 72 02/22/18 08:00 Nasal Cannula 2.0 02/22/18 08:00 98.4 94 18 122/78 (93) 97 98.4 02/22/18 08:00 83 02/22/18 07:18 61 20 99 Nasal Cannula 3.0 32 02/22/18 07:10 Nasal Cannula 3.0 32 02/22/18 07:10 99 Nasal Cannula 3.0 32 02/22/18 07:10 61 18 99 Nasal Cannula 3.0 32 02/22/18 04:00 98.1 67 16 114/64 (81) 99 98.1 02/22/18 04:00 Nasal Cannula 2.0 02/22/18 02:00 76 20 99 Nasal Cannula 3.0 32 02/22/18 02:00 72 18 98 Nasal Cannula 3.0 32 02/22/18 00:00 Nasal Cannula 2.0 02/22/18 00:00 99.4 91 20 170/98 (122) 99 99.4 02/21/18 20:00 86 02/21/18 20:00 98.3 79 20 140/82 (101) 98 98.3 02/21/18 19:33 Nasal Cannula 2.0 02/21/18 19:17 88 20 100 Nasal Cannula 3.0 32 02/21/18 19:16 Nasal Cannula 3.0 32 02/21/18 19:16 86 18 99 Nasal Cannula 3.0 32 02/21/18 19:15 100 Nasal Cannula 3.0 32 Intake and Output 02/21/18 02/22/18 19:00 07:00 Intake Total 750 ml 1150.000 ml Output Total 40 ml Balance 710 ml 1150.000 ml IV Total 750 ml 1150.000 ml Stool Total 40 ml General Appearance: cachetic HEENT: normocephalic, atraumatic, anicteric, mucous membranes moist Respiratory/Chest: chest wall non-tender, lungs clear, normal breath sounds, no respiratory distress Cardiovascular: normal peripheral pulses, normal rate, regular rhythm Abdomen: normal bowel sounds, soft, non tender, no organomegaly, non distended Extremities: no cyanosis, no clubbing, no edema Microbiology Date/Time Source Procedure Growth Status 02/20/18 15:30 Blood Blood Culture - Preliminary NO GROWTH AFTER 24 HOURS Resulted 02/20/18 15:30 Blood Blood Culture - Preliminary NO GROWTH AFTER 24 HOURS Resulted Laboratory Tests 02/22/18 06:45: Sodium Level 142, Potassium Level 3.0L, Chloride Level 107, Carbon Dioxide Level 30, Anion Gap 5, Blood Urea Nitrogen 8, Creatinine 1.0#, Estimat Glomerular Filtration Rate , Glucose Level 158H, Calcium Level 8.7, Phosphorus Level 2.1L, Magnesium Level 2.1, Total Bilirubin 1.7H, Direct Bilirubin 0.7H, Aspartate Amino Transf (AST/SGOT) 44H, Alanine Aminotransferase (ALT/SGPT) 109H , Alkaline Phosphatase 69, Total Protein 6.8, Albumin 3.1L, Globulin 3.7, Albumin/Globulin Ratio 0.8L Current Medications Medications (Trade) Dose Ordered Sig/Goldy Route PRN Reason Start Time Stop Time Status Last Admin Dose Admin Acetaminophen (Tylenol) 650 mg Q4H PRN NG Mild Pain/Temp > 100.5 02/20/18 21:00 03/22/18 20:59 02/22/18 06:05 Acetaminophen (Tylenol) 650 mg Q6H PRN RECTAL Mild Pain/Temp > 100.5 02/20/18 19:00 03/19/18 18:59 Dextrose (Dextrose 50%) 25 ml STAT PRN IV Hypoglycemia 02/20/18 19:00 03/22/18 18:59 Dextrose (Dextrose 50%) 50 ml STAT PRN IV Hypoglycemia 02/20/18 19:00 03/22/18 18:59 Diphenhydramine HCl (Benadryl) 25 mg Q6H PRN ORAL Itching/Pruritis 02/20/18 19:00 03/19/18 18:59 02/21/18 22:53 Insulin Aspart (NovoLOG) BEFORE MEALS AND HS SUBQ 02/20/18 21:00 03/19/18 20:59 02/22/18 16:43 Ipratropium [place] (Atrovent) 500 mcg Q4H PRN HHN Shortness of Breath 02/20/18 19:00 02/25/18 18:59 Ipratropium [place] (Atrovent) 500 mcg Q6HRT HHN 02/20/18 19:00 02/25/18 12:59 02/22/18 12:58 Ondansetron HCl (Zofran) 4 mg Q6H PRN IVP Nausea & Vomiting 02/20/18 19:00 03/19/18 18:59 Pantoprazole (Protonix) 40 mg DAILY ORAL 02/21/18 09:00 03/20/18 08:59 02/22/18 09:16 Quetiapine Fumarate (SEROquel) 12.5 mg Q4H PRN ORAL anxiety 02/22/18 12:15 03/24/18 12:14 Rifampin (Rifadin) 300 mg EVERY 12 HOURS ORAL 02/21/18 21:00 03/23/18 20:59 02/22/18 09:16 Sodium Chloride 1,000 ml @ 75 mls/hr [id number] IV 02/20/18 20:00 8/7/18 19:59 02/22/18 09:20 Vancomycin HCl (Vanco rx to dose) 1 ea DAILY PRN MISC Per rx protocol 02/21/18 09:00 03/19/18 20:59 Vancomycin HCl/ Dextrose 250 ml @ 166.667 mls/hr Q24H IVPB 02/21/18 03:00 02/26/18 02:59 02/22/18 02:57 Stalin García MD Feb 22, 2018 19:08
[2018-02-22 20:00] VITALS: BP 141/77
[2018-02-23] VITALS: BP 154/75
[2018-02-23] MEDS: Ipratropium 0.02% Inh Soln 2.5ml UD HHN SCH ×5 (01:14→19:36)
[2018-02-23] MEDS: Vancomycin 1250mg/D5W 250ml 250 ML IVPB SCH (03:03)
[2018-02-23 04:00] VITALS: BP 147/72
[2018-02-23 05:21] LABS: BASOPHILS % (AUTO) 1.5 % (0.0-2.0); EOSINOPHILS % (AUTO) 1.1 % (0.0-3.0); HEMATOCRIT 31.7 % (37.0-47.0); LYMPHOCYTES % (AUTO) 9.3 % (20.0-45.0); MEAN CORPUSCULAR VOLUME 88 FL (80-99); MONOCYTES % (AUTO) 8.9 % (1.0-10.0); NEUTROPHILS % (AUTO) 79.3 % (45.0-75.0); PLATELET COUNT 206 K/UL (150-450); RED BLOOD COUNT 3.61 M/UL (4.20-5.40); RED CELL DISTRIBUTION WIDTH 12.1 % (11.6-14.8); WHITE BLOOD COUNT 9.8 K/UL (4.8-10.8)
[2018-02-23 05:26] LABS: ANION GAP 8 mmol/L (5-15); BLOOD UREA NITROGEN 10 mg/dL (7-18); CARBON DIOXIDE 29 MMOL/L (21-32); CHLORIDE 105 MMOL/L (98-107); CREATININE 0.8 MG/DL (0.55-1.30); POTASSIUM 2.8 MMOL/L (3.5-5.1); SODIUM 143 MMOL/L (136-145)
[2018-02-23] MEDS: NovoLOG Insulin Flexpen SUBQ SCH ×4 (06:24→21:10)
[2018-02-23] MEDS ORDERED: Ipratropium 0.02% Inh Soln 2.5ml UD HHN PRN (08:00)
[2018-02-23] MEDS ORDERED: Acetaminophen 650 MG SUPP RECTAL PRN (08:00)
[2018-02-23] MEDS ORDERED: Acetaminophen 650mg/20.3ml NG PRN (08:00)
--- NOTE | 2018-02-23 08:03 | Nephrology Progress Note ---
Assessment/Plan Assessment/Plan 1. Heat Stroke - resolved 2. Hypotension- resolved 3. Resp FL- extubated. 4. DVT prophylaxsis 5. Hypokalemia/Mg- being replaced prn 6. NATTY- resolved 7. Thrombocytopenia- due to sepsis - Heme to manage. Improving 8. Sepsis/Bacteremia- ID to manage Abx Plan for DC home tomorrow Subjective Date patient seen: Feb 23, 2018 Time patient seen: 08:02 ROS Limited/Unobtainable: No Constitutional: Reports: weakness Allergies: Coded Allergies: NO KNOWN ALLERGIES (Verified Allergy, Unknown, 02/17/18) Uncoded Allergies: unknown (Allergy, Unknown, 02/17/18) All Systems: reviewed and negative except above Subjective Patient much improved. Feeling better Objective Last 24 Hour Vital Signs Date Time Temp Pulse Resp B/P (MAP) Pulse Ox O2 Delivery O2 Flow Rate FiO2 02/23/18 04:00 99.0 86 20 147/72 (97) 98 99.0 02/23/18 04:00 Nasal Cannula 2.0 02/23/18 01:22 87 18 99 Nasal Cannula 2.0 28 02/23/18 01:13 82 18 96 Nasal Cannula 2.0 28 02/23/18 00:00 Nasal Cannula 2.0 02/23/18 00:00 86 02/23/18 00:00 99.3 88 19 154/75 (101) 97 99.3 02/22/18 20:00 99.0 88 20 141/77 (98) 98 99.0 02/22/18 20:00 Nasal Cannula 2.0 02/22/18 20:00 97 02/22/18 19:31 95 18 99 Nasal Cannula 2.0 28 02/22/18 19:21 97 Nasal Cannula 2.0 28 02/22/18 19:21 Nasal Cannula 2.0 28 02/22/18 19:21 91 18 97 Nasal Cannula 2.0 28 02/22/18 16:00 Nasal Cannula 2.0 02/22/18 16:00 85 02/22/18 15:54 99.4 89 16 134/77 (96) 98 99.4 02/22/18 13:05 69 18 99 Nasal Cannula 2.0 28 02/22/18 12:58 64 18 99 Nasal Cannula 3.0 32 02/22/18 12:00 Nasal Cannula 2.0 02/22/18 12:00 99.1 81 18 123/66 (85) 98 99.1 02/22/18 11:49 72 Intake and Output 02/22/18 02/23/18 19:00 07:00 Intake Total 1950.0 ml Output Total 950 ml Balance 1000.0 ml Intake Oral 840 ml IV Total 1110.0 ml Output Urine Total 700 ml Stool Total 250 ml # Voids 3 Laboratory Tests 02/23/18 03:44: White Blood Count 9.8, Red Blood Count 3.61L, Hemoglobin 11.0L, Hematocrit 31.7L , Mean Corpuscular Volume 88, Mean Corpuscular Hemoglobin 30.4, Mean Corpuscular Hemoglobin Concent 34.7, Red Cell Distribution Width 12.1, Platelet Count 206, Mean Platelet Volume 6.9, Neutrophils (%) (Auto) 79.3H, Lymphocytes ( %) (Auto) 9.3L, Monocytes (%) (Auto) 8.9, Eosinophils (%) (Auto) 1.1, Basophils (%) (Auto) 1.5, Sodium Level 143, Potassium Level 2.8L, Chloride Level 105, Carbon Dioxide Level 29, Anion Gap 8, Blood Urea Nitrogen 10, Creatinine 0.8, Estimat Glomerular Filtration Rate , Glucose Level 154H, Calcium Level 9.0 Height (Feet): 5 Weight (Pounds): 151 General Appearance: WD/WN, no apparent distress EENT: normal ENT inspection Neck: non-tender, normal alignment, supple Cardiovascular: normal rate, regular rhythm Respiratory/Chest: lungs clear Abdomen: normal bowel sounds, non tender, soft Edema: no edema noted Arm (L), no edema noted Arm (R), no edema noted Leg (L), no edema noted Leg (R), no edema noted Pedal (L), no edema noted Pedal (R), no edema noted Generalized Jones Aguayo M.D. Feb 23, 2018 08:03
[2018-02-23 08:36] VITALS: BP 135/72
[2018-02-23 12:00] VITALS: BP 142/65
--- NOTE | 2018-02-23 12:07 | General Progress Note ---
Assessment/Plan Status: stable Assessment/Plan 1. Thrombocytopenia secondary to underlying DIC with underlying infection. --> The patient requiring pressors at this time with altered mental status in addition to lactic acidosis. --> DIC panel pending 2. Anemia due to underlying hemodilution. --> Closely monitor for improvement --> anemia w/u has been reviewed --> Hgb goal >7 3. Elevated D-dimer likely secondary to acute shock. 4. Elevated troponin, secondary to underlying demand ischemia. --> LVEF within normal limits. 5. Respiratory failure, on a vent as well as antibiotics. 6. Altered mental status, likely secondary to shock. Subjective Date patient seen: Feb 23, 2018 Hematologic/Lymphatic: Reports: anemia Allergies: Coded Allergies: NO KNOWN ALLERGIES (Verified Allergy, Unknown, 02/17/18) Uncoded Allergies: unknown (Allergy, Unknown, 02/17/18) All Systems: reviewed and negative except above Subjective Pt transferred to telemetry. No acute events. Vitals are stable. DC planning. Objective Last 24 Hour Vital Signs Date Time Temp Pulse Resp B/P (MAP) Pulse Ox O2 Delivery O2 Flow Rate FiO2 02/23/18 08:36 96.4 85 18 135/72 (93) 98 96.4 02/23/18 08:00 Nasal Cannula 2.0 02/23/18 08:00 96 02/23/18 06:40 89 16 99 Nasal Cannula 2.0 28 02/23/18 06:30 2.0 28 02/23/18 06:30 98 Nasal Cannula 2.0 28 02/23/18 06:30 98 16 99 Nasal Cannula 2.0 28 02/23/18 04:00 99.0 86 20 147/72 (97) 98 99.0 02/23/18 04:00 Nasal Cannula 2.0 02/23/18 01:22 87 18 99 Nasal Cannula 2.0 28 02/23/18 01:13 82 18 96 Nasal Cannula 2.0 28 02/23/18 00:00 Nasal Cannula 2.0 02/23/18 00:00 86 02/23/18 00:00 99.3 88 19 154/75 (101) 97 99.3 02/22/18 20:00 99.0 88 20 141/77 (98) 98 99.0 02/22/18 20:00 Nasal Cannula 2.0 02/22/18 20:00 97 7/11/18 19:31 95 18 99 Nasal Cannula 2.0 28 02/22/18 19:21 97 Nasal Cannula 2.0 28 02/22/18 19:21 Nasal Cannula 2.0 28 02/22/18 19:21 91 18 97 Nasal Cannula 2.0 28 02/22/18 16:00 Nasal Cannula 2.0 02/22/18 16:00 85 02/22/18 15:54 99.4 89 16 134/77 (96) 98 99.4 02/22/18 13:05 69 18 99 Nasal Cannula 2.0 28 02/22/18 12:58 64 18 99 Nasal Cannula 3.0 32 Intake and Output 02/22/18 02/23/18 19:00 07:00 Intake Total 1950.0 ml Output Total 950 ml Balance 1000.0 ml Intake Oral 840 ml IV Total 1110.0 ml Output Urine Total 700 ml Stool Total 250 ml # Voids 3 Laboratory Tests 02/23/18 03:44: White Blood Count 9.8, Red Blood Count 3.61L, Hemoglobin 11.0L, Hematocrit 31.7L , Mean Corpuscular Volume 88, Mean Corpuscular Hemoglobin 30.4, Mean Corpuscular Hemoglobin Concent 34.7, Red Cell Distribution Width 12.1, Platelet Count 206, Mean Platelet Volume 6.9, Neutrophils (%) (Auto) 79.3H, Lymphocytes ( %) (Auto) 9.3L, Monocytes (%) (Auto) 8.9, Eosinophils (%) (Auto) 1.1, Basophils (%) (Auto) 1.5, Sodium Level 143, Potassium Level 2.8L, Chloride Level 105, Carbon Dioxide Level 29, Anion Gap 8, Blood Urea Nitrogen 10, Creatinine 0.8, Estimat Glomerular Filtration Rate , Glucose Level 154H, Calcium Level 9.0 Height (Feet): 5 Weight (Pounds): 151 General Appearance: no apparent distress, alert EENT: PERRL/EOMI Neck: normal alignment Cardiovascular: normal peripheral pulses Respiratory/Chest: no respiratory distress Abdomen: soft Link Diez MD Feb 23, 2018 12:07
[2018-02-23] MEDS ORDERED: Metoprolol 5mg/5ml Inj IVP SCH (15:30)
[2018-02-23 16:00] VITALS: BP 130/77
--- NOTE | 2018-02-23 16:23 | Infectious Diseases Prog Note ---
Assessment/Plan Problems: (1) Sepsis Assessment & Plan: due to staphylococcus lugdunensis with fever and leukocytosis , source suspect her knees wounds . repeated blood culture so far is negative X4 , continue vancomycin and rifampin for two weeks starting from the clearance day , echo ruled out valve vegetations which was done earlier. (2) Fever Assessment & Plan: rule out pneumonia VS infected knees joints , will order CXR and both knees X rays , add ceftriaxon (3) Acute respiratory failure Assessment & Plan: S/P extubation, improved, monitor CXR (4) NATTY (acute kidney injury) Assessment & Plan: due to dehydration, improved , monitor renal function (5) Heat stroke Assessment & Plan: improving , continue hydration (6) Thrombocytopenia Assessment & Plan: improving, HIT titer is negative , avoid heparin products , hematology team is following Subjective Constitutional: Reports: fever HEENT: Reports: no symptoms Respiratory: Reports: no symptoms Breasts: Reports: no symptoms Cardiovascular: Reports: no symptoms Gastrointestinal/Abdominal: Reports: no symptoms Genitourinary: Reports: no symptoms Neurologic: Reports: weakness Psychiatric: Reports: no symptoms Skin: Reports: other - breaks in both knees Hematologic: Reports: no symptoms Musculoskeletal: Reports: pain, swelling - both knees Allergies: Coded Allergies: NO KNOWN ALLERGIES (Verified Allergy, Unknown, 02/17/18) Uncoded Allergies: unknown (Allergy, Unknown, 02/17/18) Objective Vital Signs Last 24 Hour Vital Signs Date Time Temp Pulse Resp B/P (MAP) Pulse Ox O2 Delivery O2 Flow Rate FiO2 02/23/18 15:51 101.8 02/23/18 15:35 180 02/23/18 13:46 89 20 99 Nasal Cannula 2.0 28 02/23/18 13:37 89 16 97 Nasal Cannula 2.0 28 02/23/18 12:00 85 02/23/18 12:00 97.7 87 19 142/65 (90) 95 97.7 02/23/18 08:36 96.4 85 18 135/72 (93) 98 96.4 02/23/18 08:00 Nasal Cannula 2.0 02/23/18 08:00 96 02/23/18 06:40 89 16 99 Nasal Cannula 2.0 28 02/23/18 06:30 2.0 28 02/23/18 06:30 98 Nasal Cannula 2.0 28 02/23/18 06:30 98 16 99 Nasal Cannula 2.0 28 02/23/18 04:00 99.0 86 20 147/72 (97) 98 99.0 02/23/18 04:00 Nasal Cannula 2.0 02/23/18 01:22 87 18 99 Nasal Cannula 2.0 28 02/23/18 01:13 82 18 96 Nasal Cannula 2.0 28 02/23/18 00:00 Nasal Cannula 2.0 02/23/18 00:00 86 02/23/18 00:00 99.3 88 19 154/75 (101) 97 99.3 02/22/18 20:00 99.0 88 20 141/77 (98) 98 99.0 02/22/18 20:00 Nasal Cannula 2.0 02/22/18 20:00 97 02/22/18 19:31 95 18 99 Nasal Cannula 2.0 28 02/22/18 19:21 97 Nasal Cannula 2.0 28 02/22/18 19:21 Nasal Cannula 2.0 28 02/22/18 19:21 91 18 97 Nasal Cannula 2.0 28 Height (Feet): 5 Weight (Pounds): 151 General Appearance: WD/WN, no acute distress HEENT: normocephalic, atraumatic, anicteric, mucous membranes moist Respiratory/Chest: chest wall non-tender, no respiratory distress, no accessory muscle use, decreased breath sounds, crackles/rales Cardiovascular: normal peripheral pulses, normal rate, regular rhythm, no gallop/murmur, no JVD Abdomen: normal bowel sounds, soft, non tender, no organomegaly, non distended , no mass, no scars Extremities: no cyanosis, no clubbing Skin: no rash, no lesions, other - skin breaks on both knees with wounds Neurologic/Psychiatric: alert, responsive Lymphatic: no neck adenopathy, no groin adenopathy Musculoskeletal: normal muscle bulk, no effusion Laboratory Tests Test 02/23/18 03:44 White Blood Count 9.8 K/UL (4.8-10.8) Red Blood Count 3.61 M/UL (4.20-5.40) L Hemoglobin 11.0 G/DL (12.0-16.0) L Hematocrit 31.7 % (37.0-47.0) L Mean Corpuscular Volume 88 FL (80-99) Mean Corpuscular Hemoglobin 30.4 PG (27.0-31.0) Mean Corpuscular Hemoglobin Concent 34.7 G/DL (32.0-36.0) Red Cell Distribution Width 12.1 % (11.6-14.8) Platelet Count 206 K/UL (150-450) Mean Platelet Volume 6.9 FL (6.5-10.1) Neutrophils (%) (Auto) 79.3 % (45.0-75.0) H Lymphocytes (%) (Auto) 9.3 % (20.0-45.0) L Monocytes (%) (Auto) 8.9 % (1.0-10.0) Eosinophils (%) (Auto) 1.1 % (0.0-3.0) Basophils (%) (Auto) 1.5 % (0.0-2.0) Sodium Level 143 MMOL/L (136-145) Potassium Level 2.8 MMOL/L (3.5-5.1) L Chloride Level 105 MMOL/L (98-107) Carbon Dioxide Level 29 MMOL/L (21-32) Anion Gap 8 mmol/L (5-15) Blood Urea Nitrogen 10 mg/dL (7-18) Creatinine 0.8 MG/DL (0.55-1.30) Estimat Glomerular Filtration Rate mL/min (>60) Glucose Level 154 MG/DL (74-106) H Calcium Level 9.0 MG/DL (8.5-10.1) Current Medications Medications (Trade) Dose Ordered Sig/Goldy Route PRN Reason Start Time Stop Time Status Last Admin Dose Admin Acetaminophen (Tylenol) 650 mg Q4H PRN NG Mild Pain/Temp > 100.5 02/23/18 08:00 03/22/18 07:59 02/23/18 15:51 Acetaminophen (Tylenol) 650 mg Q6H PRN RECTAL Mild Pain/Temp > 100.5 02/23/18 08:00 03/19/18 07:59 Dextrose (Dextrose 50%) 25 ml STAT PRN IV Hypoglycemia 02/23/18 08:00 03/22/18 07:59 Dextrose (Dextrose 50%) 50 ml STAT PRN IV Hypoglycemia 02/23/18 08:00 03/22/18 07:59 Diphenhydramine HCl (Benadryl) 25 mg Q6H PRN ORAL Itching/Pruritis 02/23/18 08:00 03/19/18 07:59 Insulin Aspart (NovoLOG) BEFORE MEALS AND HS SUBQ 02/23/18 11:30 03/19/18 20:59 02/23/18 11:49 Ipratropium [place] (Atrovent) 500 mcg Q4H PRN HHN Shortness of Breath 02/23/18 08:00 02/25/18 07:59 Ipratropium [place] (Atrovent) 500 mcg Q6HRT HHN 02/23/18 13:00 02/25/18 12:59 02/23/18 13:40 Metoprolol Tartrate (Lopressor) 5 mg ONCE IVP 02/23/18 15:30 02/23/18 16:30 02/23/18 15:35 Metoprolol Tartrate (Lopressor) 50 mg Q12HR ORAL 02/23/18 21:00 03/25/18 20:59 Ondansetron HCl (Zofran) 4 mg Q6H PRN IVP Nausea & Vomiting 02/23/18 08:00 03/19/18 07:59 Pantoprazole (Protonix) 40 mg ACBREAKFAST ORAL 02/23/18 09:00 03/25/18 08:59 02/23/18 08:43 Quetiapine Fumarate (SEROquel) 12.5 mg Q4H PRN ORAL anxiety 02/23/18 08:00 03/24/18 07:59 Rifampin (Rifadin) 300 mg EVERY 12 HOURS ORAL 02/23/18 09:00 03/23/18 20:59 02/23/18 10:04 Sodium Chloride 1,000 ml @ 75 mls/hr [id number] IV 02/23/18 09:00 03/21/18 08:59 02/23/18 08:43 Vancomycin HCl (Vanco rx to dose) 1 ea DAILY PRN MISC Per rx protocol 02/23/18 09:00 03/19/18 20:59 Vancomycin HCl/ Dextrose 250 ml @ 166.667 mls/hr Q24H IVPB 02/24/18 03:00 02/26/18 02:59 Lorenzo Faustin M.D. Feb 23, 2018 16:23
--- NOTE | 2018-02-23 17:11 | Cardiology Progress Note ---
Assessment/Plan Status: stable Assessment/Plan Assessment/Plan 1. Elevated troponin initially was 0.9, 0.06 and 0.7. EKG showed inferolateral depression. Her echocardiogram however showed normal left ventricular systolic function with ejection fraction of 55%. ECG no acute changes. Outpatient ischemia evaluation if stable, no indication for cath 2. Hypotension, likely due to heat stroke. Resolved 3. Heat stroke. 4. Respiratory failure, Extubated 5. Altered level of consciousness. 6. Thrombocytopenia. 7. Atrial fibrillation - resolved, metoprolol prn 8. Anticoagulation Subjective Cardiovascular: Reports: no symptoms Respiratory: Reports: no symptoms Gastrointestinal/Abdominal: Reports: no symptoms Genitourinary: Reports: no symptoms Subjective Went into AFIB today transiently and self resolved Potassium continues to be low Seen by speech today Objective Last 24 Hour Vital Signs Date Time Temp Pulse Resp B/P (MAP) Pulse Ox O2 Delivery O2 Flow Rate FiO2 02/23/18 16:21 100.4 02/23/18 15:51 101.8 02/23/18 15:35 180 02/23/18 13:46 89 20 99 Nasal Cannula 2.0 28 02/23/18 13:37 89 16 97 Nasal Cannula 2.0 28 02/23/18 12:00 85 02/23/18 12:00 97.7 87 19 142/65 (90) 95 97.7 02/23/18 08:36 96.4 85 18 135/72 (93) 98 96.4 02/23/18 08:00 Nasal Cannula 2.0 02/23/18 08:00 96 02/23/18 06:40 89 16 99 Nasal Cannula 2.0 28 02/23/18 06:30 2.0 28 02/23/18 06:30 98 Nasal Cannula 2.0 28 02/23/18 06:30 98 16 99 Nasal Cannula 2.0 28 02/23/18 04:00 99.0 86 20 147/72 (97) 98 99.0 02/23/18 04:00 Nasal Cannula 2.0 02/23/18 01:22 87 18 99 Nasal Cannula 2.0 28 02/23/18 01:13 82 18 96 Nasal Cannula 2.0 28 02/23/18 00:00 Nasal Cannula 2.0 02/23/18 00:00 86 02/23/18 00:00 99.3 88 19 154/75 (101) 97 99.3 02/22/18 20:00 99.0 88 20 141/77 (98) 98 99.0 02/22/18 20:00 Nasal Cannula 2.0 02/22/18 20:00 97 02/22/18 19:31 95 18 99 Nasal Cannula 2.0 28 02/22/18 19:21 97 Nasal Cannula 2.0 28 02/22/18 19:21 Nasal Cannula 2.0 28 02/22/18 19:21 91 18 97 Nasal Cannula 2.0 28 General Appearance: no apparent distress EENT: PERRL/EOMI, normal ENT inspection Neck: non-tender Rhythm: NSR, SB Cardiovascular: normal peripheral pulses, normal rate, regular rhythm Respiratory/Chest: chest wall non-tender Abdomen: normal bowel sounds Extremities: normal range of motion Neurologic: automatic lump making machine tender II-XII grossly normal Intake and Output 02/22/18 02/23/18 19:00 07:00 Intake Total 1950.0 ml Output Total 950 ml Balance 1000.0 ml Intake Oral 840 ml IV Total 1110.0 ml Output Urine Total 700 ml Stool Total 250 ml # Voids 3 Laboratory Tests Test 02/23/18 03:44 White Blood Count 9.8 K/UL (4.8-10.8) Red Blood Count 3.61 M/UL (4.20-5.40) L Hemoglobin 11.0 G/DL (12.0-16.0) L Hematocrit 31.7 % (37.0-47.0) L Mean Corpuscular Volume 88 FL (80-99) Mean Corpuscular Hemoglobin 30.4 PG (27.0-31.0) Mean Corpuscular Hemoglobin Concent 34.7 G/DL (32.0-36.0) Red Cell Distribution Width 12.1 % (11.6-14.8) Platelet Count 206 K/UL (150-450) Mean Platelet Volume 6.9 FL (6.5-10.1) Neutrophils (%) (Auto) 79.3 % (45.0-75.0) H Lymphocytes (%) (Auto) 9.3 % (20.0-45.0) L Monocytes (%) (Auto) 8.9 % (1.0-10.0) Eosinophils (%) (Auto) 1.1 % (0.0-3.0) Basophils (%) (Auto) 1.5 % (0.0-2.0) Sodium Level 143 MMOL/L (136-145) Potassium Level 2.8 MMOL/L (3.5-5.1) L Chloride Level 105 MMOL/L (98-107) Carbon Dioxide Level 29 MMOL/L (21-32) Anion Gap 8 mmol/L (5-15) Blood Urea Nitrogen 10 mg/dL (7-18) Creatinine 0.8 MG/DL (0.55-1.30) Estimat Glomerular Filtration Rate mL/min (>60) Glucose Level 154 MG/DL (74-106) H Calcium Level 9.0 MG/DL (8.5-10.1) Iglesia Mason M.D. Feb 23, 2018 17:11
[2018-02-23 20:00] VITALS: BP 146/88
[2018-02-23] MEDS ORDERED: Metoprolol Tartrate 50mg tab ORAL SCH (21:00)
[2018-02-24] VITALS: BP 111/69
[2018-02-24] MEDS: Ipratropium 0.02% Inh Soln 2.5ml UD HHN SCH (01:26)
[2018-02-24 02:46] LABS: BASOPHILS % (AUTO) 0.5 % (0.0-2.0); EOSINOPHILS % (AUTO) 1.2 % (0.0-3.0); HEMATOCRIT 29.7 % (37.0-47.0); HEMOGLOBIN 9.9 G/DL (12.0-16.0); LYMPHOCYTES % (AUTO) 5.2 % (20.0-45.0); MEAN CORPUSCULAR VOLUME 88 FL (80-99); MONOCYTES % (AUTO) 10.4 % (1.0-10.0); NEUTROPHILS % (AUTO) 82.7 % (45.0-75.0); PLATELET COUNT 242 K/UL (150-450); RED BLOOD COUNT 3.38 M/UL (4.20-5.40); RED CELL DISTRIBUTION WIDTH 12.1 % (11.6-14.8); WHITE BLOOD COUNT 9.4 K/UL (4.8-10.8)
[2018-02-24 02:54] LABS: ANION GAP 6 mmol/L (5-15); BLOOD UREA NITROGEN 10 mg/dL (7-18); CALCIUM 8.5 MG/DL (8.5-10.1); CARBON DIOXIDE 31 MMOL/L (21-32); CHLORIDE 108 MMOL/L (98-107); CREATININE 0.7 MG/DL (0.55-1.30); SODIUM 145 MMOL/L (136-145)
[2018-02-24] MEDS ORDERED: Vancomycin 1250mg/D5W 250ml 250 ML IVPB SCH (03:00)
[2018-02-24 04:00] VITALS: BP 144/81
--- NOTE | 2018-02-24 06:49 | Emergency Room Report ---
History of Present Illness General Chief Complaint: Altered Level of Consciousness Source: Patient, Medical Record, PMD Present Illness HPI This patient was admitted to the ICU for he stroke. She was intubated. She was subsequently extubated and was in telemetry. I responded to a CODE BLUE around 6 AM. On arrival CPR was in progress. Per nursing staff, patient became unresponsive and was asystole on a monitor. CODE BLUE was activated. She was getting chest compression. There was blood coming from her mouth. She remained unresponsive. I proceeded to intubate her. Unfortunately her IV line had infiltrated. I gave her a dose of epinephrine through the endotracheal tube. I then placed an 18-gauge left EJ and proceeded to give her 2 more doses of epinephrine through that. He remained asystolic and a code was called. Time of was 6:13 AM. I contacted primary care doctor. Allergies: Coded Allergies: NO KNOWN ALLERGIES (Verified Allergy, Unknown, 02/17/18) Uncoded Allergies: unknown (Allergy, Unknown, 02/17/18) Patient History Now: No Nursing Documentation-[facility] Past Medical History Deferred: Patient Unconscious Past Medical History: No Stated History Hx Cardiac Problems: No Hx Cancer: No Hx Gastrointestinal Problems: No Hx Neurological Problems: No Physical Exam Vital Signs Date Time Temp Pulse Resp B/P (MAP) Pulse Ox O2 Delivery O2 Flow Rate FiO2 02/20/18 07:00 82 22 129/69 (89) 99 02/20/18 07:19 Nasal Cannula 2.0 28 02/20/18 09:00 99.8 99.8 Procedures CPR/Code Blue CPR/Code Blue Narrative please see code sheet for full information. Intubation Intubation : Consent: Emergent Intubation Method: orotracheal Tube Size (cm): 7.0 Breath Sounds after Intubation: equal Intubation Complications: no complications Post Intubation Xray: No Attempts: One Patient Tolerated: Well Complications: None Medical Decision Making Diagnostic Impression: Primary Impression: Altered level of consciousness Additional Impressions: Heat stroke Cardiac arrest ER Course Patient with cardiac arrest. This may be secondary to DIC from her heatstroke. Time of is 6:13 AM. Last Vital Signs Date Time Temp Pulse Resp B/P (MAP) Pulse Ox O2 Delivery O2 Flow Rate FiO2 02/24/18 04:00 96.5 79 18 144/81 (102) 96 96.5 02/24/18 01:36 Nasal Cannula 2.0 28 Disposition: Condition: Referrals: NOT CHOSEN IPA/,REFERRING (PCP) ANNY CASEY M.D. Feb 24, 2018 06:49
[2018-02-24] MEDS ORDERED: cefTRIAXone 2 GM in D5W 110 ML IVPB SCH (09:00)
[2018-02-24] MEDS ORDERED: Tubing IV Secondary IV ONE ×2 (14:31→17:29)
[2018-02-24] MEDS ORDERED: Vancomycin 1gm/D5W 275ml IVPB SCH ×2 (15:00)
--- NOTE | 2018-02-24 15:05 | Cardiology Progress Note ---
Assessment/Plan Status: other Assessment/Plan Assessment/Plan 1. Elevated troponin initially was 0.9, 0.06 and 0.7. EKG showed inferolateral depression. Her echocardiogram however showed normal left ventricular systolic function with ejection fraction of 55%. ECG no acute changes. Outpatient ischemia evaluation if stable, no indication for cath 2. Hypotension, likely due to heat stroke. Resolved 3. Heat stroke. 4. Respiratory failure, Extubated 5. Altered level of consciousness. 6. Thrombocytopenia. 7. Atrial fibrillation - resolved, metoprolol prn 8. Anticoagulation Patient pronounced earlier today. 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 Code was called earlier this morning and patient pronounced Objective Last 24 Hour Vital Signs Date Time Temp Pulse Resp B/P (MAP) Pulse Ox O2 Delivery O2 Flow Rate FiO2 02/24/18 04:00 94 02/24/18 04:00 96.5 79 18 144/81 (102) 96 96.5 02/24/18 01:36 83 18 99 Nasal Cannula 2.0 28 02/24/18 01:26 85 18 96 Nasal Cannula 2.0 28 02/24/18 00:00 97.4 59 22 111/69 (83) 97 97.4 02/24/18 00:00 85 02/23/18 21:06 95 146/88 02/23/18 21:00 Nasal Cannula 2.0 02/23/18 20:00 102 02/23/18 20:00 96.8 95 20 146/88 (107) 96 96.8 02/23/18 19:46 94 18 99 Nasal Cannula 2.0 28 02/23/18 19:36 Nasal Cannula 2.0 28 02/23/18 19:36 98 Nasal Cannula 2.0 28 02/23/18 19:36 92 16 98 Nasal Cannula 2.0 28 02/23/18 16:21 100.4 02/23/18 16:00 167 02/23/18 16:00 101.8 160 19 130/77 (94) 96 101.8 02/23/18 15:51 101.8 02/23/18 15:35 180 General Appearance: other EENT: other Neck: other Rhythm: other Cardiovascular: other Respiratory/Chest: other Extremities: other Neurologic: other Intake and Output 02/23/18 02/24/18 19:00 07:00 Intake Total 848.75 ml Output Total 200 ml Balance 648.75 ml Intake Oral 120 ml IV Total 728.75 ml Output Urine Total 150 ml Stool Total 50 ml Laboratory Tests Test 02/24/18 02:24 White Blood Count 9.4 K/UL (4.8-10.8) Red Blood Count 3.38 M/UL (4.20-5.40) L Hemoglobin 9.9 G/DL (12.0-16.0) L Hematocrit 29.7 % (37.0-47.0) L Mean Corpuscular Volume 88 FL (80-99) Mean Corpuscular Hemoglobin 29.2 PG (27.0-31.0) Mean Corpuscular Hemoglobin Concent 33.2 G/DL (32.0-36.0) Red Cell Distribution Width 12.1 % (11.6-14.8) Platelet Count 242 K/UL (150-450) Mean Platelet Volume 6.6 FL (6.5-10.1) Neutrophils (%) (Auto) 82.7 % (45.0-75.0) H Lymphocytes (%) (Auto) 5.2 % (20.0-45.0) L Monocytes (%) (Auto) 10.4 % (1.0-10.0) H Eosinophils (%) (Auto) 1.2 % (0.0-3.0) Basophils (%) (Auto) 0.5 % (0.0-2.0) Sodium Level 145 MMOL/L (136-145) Potassium Level 3.0 MMOL/L (3.5-5.1) L Chloride Level 108 MMOL/L (98-107) H Carbon Dioxide Level 31 MMOL/L (21-32) Anion Gap 6 mmol/L (5-15) Blood Urea Nitrogen 10 mg/dL (7-18) Creatinine 0.7 MG/DL (0.55-1.30) Estimat Glomerular Filtration Rate mL/min (>60) Glucose Level 133 MG/DL (74-106) H Calcium Level 8.5 MG/DL (8.5-10.1) Vancomycin Level Trough 4.7 ug/mL (5.0-12.0) Iglesia Douglas M.D. Feb 24, 2018 15:05
--- NOTE | 2018-02-24 19:33 | General Progress Note ---
Assessment/Plan Status: unchanged Assessment/Plan [place]opathy [place] [facility] [place]st -seroquel prn Subjective Date patient seen: Feb 23, 2018 Neurologic/Psychiatric: Reports: anxiety, depressed Allergies: Coded Allergies: NO KNOWN ALLERGIES (Verified Allergy, Unknown, 02/17/18) Uncoded Allergies: unknown (Allergy, Unknown, 02/17/18) Subjective the pt was agitated and has waxing and waning of consciousness. Objective Last 24 Hour Vital Signs Date Time Temp Pulse Resp B/P (MAP) Pulse Ox O2 Delivery O2 Flow Rate FiO2 02/24/18 04:00 94 02/24/18 04:00 96.5 79 18 144/81 (102) 96 96.5 02/24/18 01:36 83 18 99 Nasal Cannula 2.0 28 02/24/18 01:26 85 18 96 Nasal Cannula 2.0 28 02/24/18 00:00 97.4 59 22 111/69 (83) 97 97.4 02/24/18 00:00 85 02/23/18 21:06 95 146/88 02/23/18 21:00 Nasal Cannula 2.0 02/23/18 20:00 102 02/23/18 20:00 96.8 95 20 146/88 (107) 96 96.8 02/23/18 19:46 94 18 99 Nasal Cannula 2.0 28 02/23/18 19:36 Nasal Cannula 2.0 28 02/23/18 19:36 98 Nasal Cannula 2.0 28 02/23/18 19:36 92 16 98 Nasal Cannula 2.0 28 Intake and Output 02/23/18 02/24/18 19:00 07:00 Intake Total 848.75 ml Output Total 200 ml Balance 648.75 ml Intake Oral 120 ml IV Total 728.75 ml Output Urine Total 150 ml Stool Total 50 ml Laboratory Tests 02/24/18 02:24: White Blood Count 9.4, Red Blood Count 3.38L, Hemoglobin 9.9L, Hematocrit 29.7L , Mean Corpuscular Volume 88, Mean Corpuscular Hemoglobin 29.2, Mean Corpuscular Hemoglobin Concent 33.2, Red Cell Distribution Width 12.1, Platelet Count 242, Mean Platelet Volume 6.6, Neutrophils (%) (Auto) 82.7H, Lymphocytes ( %) (Auto) 5.2L, Monocytes (%) (Auto) 10.4H, Eosinophils (%) (Auto) 1.2, Basophils (%) (Auto) 0.5, Sodium Level 145, Potassium Level 3.0L, Chloride Level 108H, Carbon Dioxide Level 31, Anion Gap 6, Blood Urea Nitrogen 10, Creatinine 0.7, Estimat Glomerular Filtration Rate , Glucose Level 133H, Calcium Level 8.5, Vancomycin Level Trough 4.7L Height (Feet): 5 Weight (Pounds): 151 General Appearance: no apparent distress, confused, agitated Andree Conner MD Feb 24, 2018 19:33
--- NOTE | 2018-02-27 09:49 | Discharge Summary ---
Discharge Summary Hospital Course Date of Admission Feb 17, 2018 at 16:51 Date of Discharge Feb 24, 2018 at 17:30 Admitting Diagnosis HYPERTHERMIA,HEAT STROKE HPI Ilda Dickinson is a 77 year old female who was admitted on Feb 17, 2018 at 16:51 for Hyperthermia, Heat Stroke Hospital Course dc summary #[id number] Discharge Discharge Disposition Patient Discharge Instructions Discharge Instructions Special Instructions I have been assigned to complete a D/C Summary on this account. I was not involved in the patient management Maryellen Dominguez NP Feb 27, 2018 09:49
--- NOTE | 2018-02-28 05:15 | Discharge Summary 2 SIG ---
DATE OF ADMISSION: 02/17/2018 DATE OF DISCHARGE: 02/24/2018 SUMMARY DATE OF EXPIRATION: 02/24/2018 REASON FOR ADMISSION: This is a 77-year-old female who was brought to emergency room with altered level of consciousness by private vehicle. The patient noted to be acutely altered and confused to the point of being unconscious and agonal respiration. She required emergency intubation in the emergency room. Vital signs reveal hyperthermia with a temperature of 107.9 degrees, heart rate 146, and respiratory rate 24. Chest x-ray revealed pulmonary vascular congestion. A CT of the head revealed no acute intracranial pathology. Laboratory workup revealed no leukocytosis. Lactic acid 4.8. Troponin elevated 0.068. AST 64. Phosphorus 1.9. Sodium 147, potassium 2.8, BUN 19, and creatinine 1.5. No leukocytosis. Stable hemoglobin and hematocrit initially. The patient intubated. The patient also noted to have hypotension. The patient admitted to ICU with diagnosis of hyperthermia, acute respiratory failure, acute kidney injury/ischemic acute tubular necrosis, dehydration, elevated troponin, and altered level of consciousness. CONSULTANTS: 1. Raghavendra Morel M.D., inside barrel lathe operator. 2. Lorenzo Faustin M.D., infectious disease specialist. 3. Link Diez, area sales manager. 4. Andree Conner M.D., psychiatrist. 5. Stalin García M.D., mushroom laborer. HOSPITAL COURSE: The patient admitted to ICU. Ventilator support provided. Pulmonary toilet provided. The patient was followed up with ABG, settings titrated as needed. The patient initially required for short-term pressors. The patient was on Levophed for short-term to keep systolic blood pressure above 90 and mean blood pressure above 65. The patient able to assume to be weaned from pressors. Blood pressure stabilized. Hypotension was likely secondary to hyperthermia and heatstroke. The patient was on IV hydration. Renal ultrasound revealed no hydronephrosis, no stones, and no masses. Renal parameters and electrolytes were closely monitored. Nephrotoxics were avoided. Electrolytes were corrected as needed. Unitizer closely followed. The patient was initially started on heparin drip. The patient was trended up with troponin, second troponin with trend up and then last 2 troponins are negative. The patient had elevated troponin and EKG showed inferolateral depression. Echocardiogram revealed preserved ejection fraction of 50% to 55%, right ventricular systolic pressure of 35. No evidence of left ventricular hypertrophy, mild aortic insufficiency, and mild mitral regurgitation. Unitizer recommended outpatient ischemia evaluation is stable. No indication for the catheterization for this time since the patient was not stable and per inside barrel lathe operator, hypotension was likely secondary to heatstroke, which resolved. The patient subsequently was able to be extubated on 02/19/2018. Supplemental oxygen provided as needed to keep pulse oximetry above 92%. The patient was followed up with a chest x-ray. Venous duplex of bilateral lower extremity revealed no evidence of acute DVT. The patient noted to have fever and thrombocytopenia. Heparin was stopped and heparin-induced antibody level was negative. According to area sales manager who closely followed the patient, the patient had thrombocytopenia and likely secondary to underlying DIC with underlying infection. Of note, the patient exhibited fever on 02/23/2018 and leukocytosis. Infectious disease doctor closely followed. On admission, blood cultures were positive with Staphylococcus lugdunensis. Stool for C. difficile was negative. Urinalysis revealed no evidence of UTI. Chest x-ray revealed no evidence of pneumonia. Blood culture was also positive for Staph epidermidis. Repeated blood culture on 02/19/2018 and 02/20/2018 were negative. The patient was on the IV antibiotic as per infectious disease specialist. Per infectious disease specialist, sepsis was secondary to Staphylococcus lugdunensis with fever and leukocytosis, suspecting source was knee wound. Antibiotics were continued. Echo did not reveal any evidence of vegetation. X-ray of both knees was ordered. Renal parameters were improved and prior to expiration, BUN and creatinine down to normal. Electrolytes were corrected as needed, as reported noted elevated LFT possibly due to shock liver, but was trending down. Urine toxicology screen was negative. Hepatitis panel and HIV were both negative. Stool for occult blood was negative. Hemoglobin and hematocrit were closely monitored with goal to keep hemoglobin above 7. Platelets trending down on 02/19/2018 then after heparin stopped, started to go up. According to area sales manager, thrombocytopenia was secondary to underlying DIC with underlying infection. The patient required pressors initially and had lactic acidosis. Anemia was due to underlying hemodilution. Hemoglobin and hematocrit were closely monitored. Goal to keep hemoglobin above 7. The patient also had elevated D-dimer, which was likely secondary to acute shock. Venous duplex was negative. V/Q scan revealed low probability of PE. On 02/24/2018 early in the morning, Code Blue was called. The patient at that time was at the telemetry floor. The patient was unresponsive and was in asystole on the monitor. Code Blue was activated and the patient started on ACLS protocol. Unfortunately, despite resuscitative attempts, the patient remained asystolic and was pronounced at 6:13 a.m. on 02/24/2018. CAUSE OF : Cardiopulmonary arrest. FINAL DIAGNOSES: 1. Status post cardiopulmonary arrest. 2. Acute respiratory failure, requiring intubation, status post extubation. 3. Heatstroke. 4. Hyperthermia. 5. Acute kidney injury, ischemic acute tubular necrosis resolved. 6. Dehydration. 7. Elevated troponin, likely due to increased demand due to dehydration and hypotension, possible non-ST elevation myocardial infarction. 8. Encephalopathy. 9. Thrombocytopenia. 10. Lactic acidosis. 11. Probable non-ST elevation myocardial infarction. 12. Anemia. 13. Elevated D-dimer. 14. Sepsis with Staph epidermidis and Staph lugdunensis. Of note, psychiatrist seen and evaluated the patient. Diagnosed the patient with encephalopathy due to general medical condition. Reality orientation and supportive therapy provided. The patient was on Seroquel on as-needed basis. After extubation, the patient had swallow evaluation and did not pass bedside swallow evaluation. Subsequently, the patient had undergone video swallow evaluation, which revealed dysphagia, risk for aspiration, diet started as per speech therapist recommendation. Strict aspiration and reflux precaution. At this time, the patient was more alert and awake. Blood sugar was managed with a sliding scale of insulin. Hemoglobin A1c 6.3. The patient noted episodes of paroxysmal atrial fibrillation. The patient was on metoprolol daily as well as the IV metoprolol as needed. No further episodes of the paroxysmal atrial fibrillation. After platelets started to go down, heparin discontinued and the patient had SCD applied on. The patient was on antibiotic as per ID recommendation. Jones Aguayo MD I have been assigned to dictate discharge summary on this account and I was not involved in the patient's management. Maryellen Dominguez N.P. (vanchtein) DR: SHIRLEY JOB#: [id number] CC:
--- NOTE | 2018-02-28 16:46 | Cardiology Report ---
APPROVED REPORT EKG Measurement Heart [id number] CT 104P [id number] Sinus tachycardia with short CT cannot exclude atrial flutter Left anterior fascicular block Nonspecific ST abnormality Abnormal ECG
== END 2018-02-24 17:30 | disposition expired | DRG 871 ==
LOC: EDBD 16:19 → EMR 16:19 → ICU 16:51 → EDBEDREQ 18:54 → 2W 02-20 18:00 → 2E 02-23 06:51
PROC: 05H533Z Insertion of Infusion Device into Right Subclavian Vein, Percutaneous Approach (ICD-10-PCS; principal; 2018-02-17)
PROC: 0BH17EZ Insertion of Endotracheal Airway into Trachea, Via Natural or Artificial Opening (ICD-10-PCS; principal; 2018-02-17)
PROC: 5A1945Z Respiratory Ventilation, 24-96 Consecutive Hours (ICD-10-PCS; principal; 2018-02-17)
DX: A41.1 Sepsis due to other specified staphylococcus (principal); J96.00 Acute respiratory failure, unspecified whether with hypoxia or hypercapnia; G93.40 Encephalopathy, unspecified; N17.0 Acute kidney failure with tubular necrosis; D65 Disseminated intravascular coagulation [defibrination syndrome]; I21.4 Non-ST elevation (NSTEMI) myocardial infarction; T67.0XXA Heatstroke and sunstroke, initial encounter; R65.20 Severe sepsis without septic shock; X30.XXXA Exposure to excessive natural heat, initial encounter; Y92.480 Sidewalk as the place of occurrence of the external cause; E87.6 Hypokalemia; E86.0 Dehydration; D69.59 Other secondary thrombocytopenia; D64.9 Anemia, unspecified; E66.9 Obesity, unspecified
CPT/HCPCS: 36415; 36600; 70450; 71045; 74230; 76770; 78579; 78580; 80048; 80053; 80202; 80307; 80329; 81001; 81003; 82247; 82248; 82270; 82533; 82550; 82553; 82728; 82746; 82803; 82962; 83010; 83036; 83605; 83615; 83735; 83930; 83935; 84100; 84439; 84443; 84480; 84481; 84484; 85007; 85025; 85044; 85060; 85379; 85384; 85610; 85730; 86703; 86705; 86709; 86803; 87040; 87081; 87181; 87324; 87340; 92950; 93005; 93306; 93970; 94003; 94640; 94760; 99291; A9503; J1815; J7620; J8499